=== PATIENT | male | born 1945 | race Caucasian/White ===

== ENCOUNTER 2016-07-26 06:18 | Inpatient (IN) | payer OTHER, BC ==
[~2016-07-26] VITALS: Ht 165.1 cm; Wt 95.0 kg
[~2016-07-26 06:18] MED LIST: ASPEC325 PO; BUPR-79 PO; CHOL100010 PO; CLR10 PO; ESCI1TAB10 PO; FLM4 PO; FRRS300 PO; KFL500 PO; LISI-461 PO; METH5TAB2 PO; MINO100C22 PO; PRED-301 PO; PRED10TA PO; RANI150T3 PO; RXC5 PO; SENN-58 PO
[2016-07-26] MEDS ORDERED: ASPI325T39 PO (06:29)
[2016-07-26] MEDS ORDERED: TAMS0.4C38 PO (06:32)
[2016-07-26] MEDS ORDERED: ASCO1CAP3 PO (06:36)
[2016-07-26] MEDS ORDERED: CHOL1000 PO (06:38)
[2016-07-26] MEDS ORDERED: NAPR1TAB9 PO (06:40)
[2016-07-26] MEDS ORDERED: ONDANSETRON INJ 2 MG/ML 2 ML VIAL IV STA (06:43)
[2016-07-26] MEDS ORDERED: SODIUM CHLORIDE 0.9% 500ML 500 ML IV STA (06:43)
[2016-07-26] MEDS ORDERED: MULT-1093 PO (06:43)
[2016-07-26] MEDS ORDERED: MoRPHine SULFATE 10 MG/ML CARP/VIAL IV STA ×2 (06:43→08:02)
--- NOTE | 2016-07-26 06:58 | EMERGENCY ROOM VISIT NOTE ---
History Report prepared by Kumar: Kofi Londono Under the Supervision of: Dr. Maik Hemphill D.O. First contact with patient: 06:35 Chief Complaint: LEG PAIN,LEG INJURY Stated Complaint: leg pain History of Present Illness The patient is a 71 year old male who presents to the Emergency Room via ALS on a Jasso stretcher with a hare splint in place, with complaints of worsening right leg pain that started around 2 hours ago. He says that he thinks that he fractured his right femur. The patient notes that he has had right leg pain for a couple weeks now, but he rolled in his bed around 2 hours ago, and began to have severe right leg pain, and heard a snap of his femur. The patient currently rates his pain as a 7 out of 10 in severity. The patient says that it "hurts like crazy" and when he tries to move his leg, his femur is "wiggly." He states that he knows that he fractured his femur because he had a spontaneous fracture of his left femur in January, which was operated on by Dr. Leyva. The patient has a history of severe osteoporosis and systemic mastocytosis. He also has a history of avascular necrosis of his hip. He has been on antiresorptive therapy since 1995. He denies any chest pain, shortness of breath , nausea, vomiting, or diarrhea. Source of History: patient Onset: Around 2 hours ago Position: leg (right) Symptom Intensity: 7/10 pain Quality: other (believes has right femur fracture) Timing: worsening Modifying Factors (Worsening): movement Associated Symptoms: No SOB, No chest pain, No diarrhea, No nausea, No vomiting Note: Associated symptoms: Right femur feels "wiggly" with movement. Review of Systems See HPI for pertinent positives & negatives. A total of 10 systems reviewed and were otherwise negative. Past Medical & Surgical Medical Problems: (1) Anemia (2) Avascular necrosis (3) Cellulitis of left lower extremity (4) Diabetes (5) Femur fracture, left (6) HTN (hypertension) (7) Hypotension (8) Left femoral shaft fracture (9) Mastocytosis (10) Polymyalgia rheumatica Family History Diabetes mellitus Heart disease Hypertension Stroke Social History Smoking Status: Never Smoker Alcohol Use: none Drug Use: none Marital Status: Housing Status: lives with significant other Occupation Status: employed Current/Historical Medications Scheduled Ascorbic Acid (Vitamin C), 500 MG PO BID Bupropion (Wellbutrin Sr), 150 MG PO TID Cholecalciferol (Vitamin D3), 10,000 UNITS PO DAILY Escitalopram Oxalate (Lexapro), 20 MG PO QAM Ferrous Sulfate (Ferrous Sulfate), 325 MG PO BID Lisinopril (Zestril), 10 MG PO QAM Loratadine (Claritin), 20 MG PO QAM Methadone Hcl (Dolophine), 5 MG PO QID Minocycline (Minocin), 100 MG PO BID Multiple Vitamins W/ Minerals (Centrum Silver 50+Men), 1 TAB PO DAILY Prednisone (Prednisone), 7.5 MG PO QAM Ranitidine Hcl (Zantac), 150 MG PO BID Sennosides-Docusate Sodium (Jhoana-Colace), 3 CAP PO DAILY Tamsulosin Hcl (Flomax), 0.4 MG PO BID Scheduled PRN Naproxen (Aleve), 220 MG PO DIRECTED PRN for Pain Allergies Coded Allergies: Ciprofloxacin (Verified Adverse Reaction, Unknown, ANKLE TENDONITIS, ) Levofloxacin (Verified Adverse Reaction, Unknown, ANKLE TENDONITIS, ) Physical Exam Vital Signs Date Time Temp Pulse Resp B/P Pulse Ox O2 Delivery O2 Flow Rate FiO2 07/26/16 09:05 96 Room Air 07/26/16 08:12 68 18 150/76 96 Room Air 07/26/16 06:22 36.4 64 22 140/71 99 Room Air Physical Exam GENERAL: laying on Jasso, with splint on right leg, minimal distress EYE EXAM: normal conjunctiva OROPHARYNX: no exudate, no erythema, lips, buccal mucosa, and tongue normal and mucous membranes are moist NECK: supple, no nuchal rigidity, no adenopathy, non-tender LUNGS: Clear to auscultation. Normal chest wall mechanics HEART: no murmurs, S1 normal and S2 normal ABDOMEN: abdomen soft, non-tender, normo-active bowel sounds, no masses, no rebound or guarding. Multiple old abdominal incisions. PELVIS: Stable decompression anteriorly and posteriorly. SKIN: no rashes and no bruising UPPER EXTREMITIES: upper extremities are grossly normal. LOWER EXTREMITIES: Right leg in splint, with moderate pain on palpation of proximal to mid femur. Plantar and dorsal flexion intact, gross sensation intact , DP 2/4. NEURO EXAM: Normal sensorium. Medical Decision & Procedures ER Provider Diagnostic Interpretation: Radiology results as stated below per my review and the radiologist's interpretation: PELVIS 1 OR 2 VIEW ROUTINE CLINICAL HISTORY: Right hip/femur pain. COMPARISON STUDY: Pelvis radiograph January 22, 2016. FINDINGS: A left femoral internal fixation is noted. The hardware is not visualized in its entirety. Heterotopic ossification is noted. There is a healed proximal left femoral fracture. There may be mild lucency surrounding the intramedullary yanira. Alignment of the total right hip arthroplasty is anatomic. There is extensive heterotopic ossification. The right iliac crest was not included. No acute fracture is identified within visualized portions of the pelvis. There is a displaced fracture of the right femoral shaft, just distal to the distal aspect of the femoral component of the right hip arthroplasty. IMPRESSION: 1. Acute moderately displaced right femoral mid shaft fracture immediately distal to the distal aspect of the femoral component of the right hip arthroplasty. 2. Anatomic alignment of the right hip arthroplasty. Previous proximal left femoral internal fixation. Extensive heterotopic ossification. Electronically signed by: Jake Hayward M.D. 07/26/2016 7:59 AM Dictated Date/Time: 07/26/2016 7:55 AM RIGHT FEMUR 2 VIEWS ROUTINE CLINICAL HISTORY: Right femoral pain. COMPARISON: None FINDINGS: There is a acute moderately displaced right midshaft femoral fracture located immediately distal to the distal aspect of the femoral component of the right hip arthroplasty. No additional acute fractures are identified. Alignment of the total right hip arthroplasty is anatomic. There is extensive heterotopic ossification. There is no right knee joint effusion. IMPRESSION: Acute moderately displaced mid shaft fracture of the right femur, immediately distal to the femoral component of the right hip arthroplasty. Electronically signed by: Jake Hayward M.D. 07/26/2016 8:00 AM Dictated Date/Time: 07/26/2016 7:59 AM CHEST ONE VIEW PORTABLE CLINICAL HISTORY: Femoral fracture. COMPARISON STUDY: Chest radiograph February 07, 2016. FINDINGS: There is no pneumothorax or pleural effusion. There are healed bilateral rib fractures. There is no evidence of pulmonary edema. A 1 level vertebral augmentation is noted. An old distal left clavicular fracture is noted. IMPRESSION: No acute cardiopulmonary findings. Electronically signed by: Jake Hayward M.D. 07/26/2016 7:55 AM Dictated Date/Time: 07/26/2016 7:53 AM Laboratory Results 07/26/16 06:55 Red Blood Count 3.90, Mean Corpuscular Volume 90.5, Mean Corpuscular Hemoglobin 29.5, Mean Corpuscular Hemoglobin Concent 32.6, Mean Platelet Volume 8.2, Neutrophils (%) (Auto) 61.8, Lymphocytes (%) (Auto) 29.1, Monocytes (%) (Auto) 7.1, Eosinophils (%) (Auto) 1.6, Basophils (%) (Auto) 0.2, Neutrophils # (Auto) 3.49, Lymphocytes # (Auto) 1.64, Monocytes # (Auto) 0.40, Eosinophils # (Auto) 0.09, Basophils # (Auto) 0.01 07/26/16 06:55 Test 07/26/16 06:55 07/26/16 08:08 White Blood Count 5.64 K/uL (4.8-10.8) Red Blood Count 3.90 M/uL (4.7-6.1) Hemoglobin 11.5 g/dL (14.0-18.0) Hematocrit 35.3 % (42-52) Mean Corpuscular Volume 90.5 fL (80-100) Mean Corpuscular Hemoglobin 29.5 pg (25-34) Mean Corpuscular Hemoglobin Concent 32.6 g/dl (32-36) Platelet Count 169 K/uL (130-400) Mean Platelet Volume 8.2 fL (7.4-10.4) Neutrophils (%) (Auto) 61.8 % Lymphocytes (%) (Auto) 29.1 % Monocytes (%) (Auto) 7.1 % Eosinophils (%) (Auto) 1.6 % Basophils (%) (Auto) 0.2 % Neutrophils # (Auto) 3.49 K/uL (1.4-6.5) Lymphocytes # (Auto) 1.64 K/uL (1.2-3.4) Monocytes # (Auto) 0.40 K/uL (0.11-0.59) Eosinophils # (Auto) 0.09 K/uL (0-0.5) Basophils # (Auto) 0.01 K/uL (0-0.2) RDW Standard Deviation 45.1 fL (36.4-46.3) RDW Coefficient of Variation 13.7 % (11.5-14.5) Immature Granulocyte % (Auto) 0.2 % Immature Granulocyte # (Auto) 0.01 K/uL (0.00-0.02) Prothrombin Time 11.1 SECONDS (9.0-12.0) Prothromb Time International Ratio 1.0 (0.9-1.1) Activated Partial Thromboplast Time 28.9 SECONDS (21.0-31.0) Partial Thromboplastin Ratio 1.1 Anion Gap 6.0 mmol/L (3-11) Est Creatinine Clear Calc Drug Dose 92.3 ml/min Estimated GFR () 105.6 Estimated GFR (Non- 91.1 BUN/Creatinine Ratio 22.0 (10-20) Calcium Level 8.6 mg/dl (8.5-10.1) Urine Color YELLOW Urine Appearance CLEAR (CLEAR) Urine pH 6.0 (4.5-7.5) Urine Specific [place] 1.017 (1.000-1.030) Urine Protein NEG (NEG) Urine Glucose (UA) NEG (NEG) Urine Ketones NEG (NEG) Urine Occult Blood NEG (NEG) Urine Nitrite NEG (NEG) Urine Bilirubin NEG (NEG) Urine Urobilinogen NEG (NEG) Urine Leukocyte Esterase TRACE (NEG) Urine WBC (Auto) 1-5 /hpf (0-5) Urine RBC (Auto) 0-4 /hpf (0-4) Urine Hyaline Casts (Auto) 1-5 /lpf (0-5) Urine Epithelial Cells (Auto) 0-5 /lpf (0-5) Urine Bacteria (Auto) NEG (NEG) Laboratory results per my review. Medications Administered Medications (Trade) Dose Ordered Sig/Carlos A Route Start Time Stop Time Status Last Admin Dose Admin Morphine Sulfate 6 mg 6 mg NOW STAT IV 07/26/16 06:43 07/26/16 06:45 DC 07/26/16 07:22 6 MG Sodium Chloride (Nss 500ml) 500 ml @ 999 mls/hr Q31M STAT IV 07/26/16 06:43 07/26/16 07:13 DC 07/26/16 07:22 999 MLS/HR Ondansetron HCl (Zofran Inj) 4 mg NOW STAT IV 07/26/16 06:43 07/26/16 06:45 DC 07/26/16 07:22 4 MG Morphine Sulfate (MoRPHine SULFATE INJ) 6 mg NOW STAT IV 07/26/16 08:02 07/26/16 08:03 DC 07/26/16 08:11 6 MG ECG Indication: other (leg pain) Rate (beats per minute): 66 Rhythm: normal sinus Findings: other (normal axis, poor baseline in anterior leads, normal intervals ) ED Course ED COURSE: Vital signs were reviewed and showed normal vitals. The patients medical record was reviewed The above diagnostic studies were performed and reviewed. ED treatments and interventions as stated above. 0637: The patient was evaluated in room B7. A complete history and physical examination was performed. 0643: Ordered Zofran Inj 4 mg IV, NSS 500 ml @ 999 mls/hr IV, Morphine Sulfate Inj 6 mg IV. 0716: I reevaluated the patient and he is in pain. 0800: I reevaluated and updated the patient. He is doing better. 0809: I discussed the patient with Dr. Michelle Schmidthey orthopedics - he says place the patient in Li's traction. 0819: Upon reevaluation, the patient is doing well.I discussed my findings with the patient and he understands and agrees with the treatment plan. Based on the patients age, coexisting illnesses, exam and lab findings the decision to treat as an inpatient was made. The patient remained stable while under my care. The patient will be evaluated for further management. 0933: I discussed the patient with Dr. Richard Navarro psychologist industrial organizational - he will evaluate the patient for further treatment. Medical Decision Prior records reviewed and summarized above. Triage Nursing notes reviewed and agree them. Differential diagnosis: Etiologies such as fracture, dislocation, neurovascular compromise, compartment syndrome, soft tissue injury, as well as others were entertained. Patient is a 71-year-old male who presents the ER for severe right mid femur pain following rolling over in bed and hearing a snap. He does have a history of osteoporosis and previous pathological fractures. He follows with Dr. Leyva from orthopedics. Currently in splint which was placed by EMS. As long as he is not moving is in no distress. Labs along with EKG and x-rays were obtained. CBC along with BMP and INR was unremarkable. EKG was nondiagnostic. X-rays show a mid shaft right femur fracture just distally to his right prosthesis from his previous hip replacement. He is neurovascularly intact. He was given 2 rounds of IV morphine. Discussed with orthopedics who recommended Li's traction at 10 pounds and he will evaluate him this morning. Discussed with internal medicine for further evaluation/admission. Consults Time Called: [phone] Consulting Physician: Dr. Michelle Nevarez orthopedics Returned Call: [phone] I discussed the patient with Dr. Michelle Nevarez orthopedics - he says place the patient in Li's traction. Additional Consults: Time Called: [phone] Consulted Physician: Dr. Richard Navarro psychologist industrial organizational Returned Call: [phone] Additional Comments: I discussed the patient with Dr. Richard Navarro psychologist industrial organizational - he will evaluate the patient for further treatment. Impression Primary Impression: Right femoral fracture Additional Impression: Anemia Scribe Attestation The scribe's documentation has been prepared under my direction and personally reviewed by me in its entirety. I confirm that the note above accurately reflects all work, treatment, procedures, and medical decision making performed by me. Departure Information Dispostion Being Evaluated By Hospitalist Naveen Campos M.D. (PCP) Patient Instructions My [facility] Problem Qualifiers Primary Impression: Right femoral fracture Encounter type: initial encounter Femur location: unspecified portion of femur Fracture type: closed Fracture morphology: other fracture Qualified Codes: S72.8X1A - Other fracture of right femur, initial encounter for closed fracture Additional Impression: Anemia Anemia type: unspecified type Qualified Codes: D64.9 - Anemia, unspecified
[2016-07-26 07:06] LABS: BASO % 0.2 %; BASO ABS # 0.01 K/uL (0-0.2); COMPLETE YES; EOS % 1.6 %; HEMATOCRIT 35.3 % (42-52); IG% 0.2 %; LYMPH % 29.1 %; LYMPH ABS # 1.64 K/uL (1.2-3.4); MEAN CELL VOLUME 90.5 fL (80-100); MEAN CORPUSCULAR HEMOGLOBIN 29.5 pg (25-34); MEAN CORPUSCULAR HGB CONC 32.6 g/dl (32-36); MEAN PLATELET VOLUME 8.2 fL (7.4-10.4); MONO % 7.1 %; NEUT % 61.8 %; PLATELET COUNT 169 K/uL (130-400); WHITE BLOOD COUNT 5.64 K/uL (4.8-10.8)
[2016-07-26 07:18] LABS: PARTIAL THROMBOPLASTIN RATIO 1.1; PROTHROMBIN TIME (PATIENT) 11.1 SECONDS (9.0-12.0)
[2016-07-26 07:41] LABS: CALCIUM 8.6 mg/dl (8.5-10.1); CREATININE 0.8 mg/dl (0.60-1.40)
--- NOTE | 2016-07-26 07:57 | DIAGNOSTIC IMAGING REPORT ---
CHEST ONE VIEW PORTABLE CLINICAL HISTORY: Femoral fracture. COMPARISON STUDY: Chest radiograph February 07, 2016. FINDINGS: There is no pneumothorax or pleural effusion. There are healed bilateral rib fractures. There is no evidence of pulmonary edema. A 1 level vertebral augmentation is noted. An old distal left clavicular fracture is noted. IMPRESSION: No acute cardiopulmonary findings. Electronically signed by: Jake Hayward M.D. 07/26/2016 7:55 AM Dictated Date/Time: 07/26/2016 7:53 AM
--- NOTE | 2016-07-26 08:00 | DIAGNOSTIC IMAGING REPORT ---
PELVIS 1 OR 2 VIEW ROUTINE CLINICAL HISTORY: Right hip/femur pain. COMPARISON STUDY: Pelvis radiograph January 22, 2016. FINDINGS: A left femoral internal fixation is noted. The hardware is not visualized in its entirety. Heterotopic ossification is noted. There is a healed proximal left femoral fracture. There may be mild lucency surrounding the intramedullary yanira. Alignment of the total right hip arthroplasty is anatomic. There is extensive heterotopic ossification. The right iliac crest was not included. No acute fracture is identified within visualized portions of the pelvis. There is a displaced fracture of the right femoral shaft, just distal to the distal aspect of the femoral component of the right hip arthroplasty. IMPRESSION: 1. Acute moderately displaced right femoral mid shaft fracture immediately distal to the distal aspect of the femoral component of the right hip arthroplasty. 2. Anatomic alignment of the right hip arthroplasty. Previous proximal left femoral internal fixation. Extensive heterotopic ossification. Electronically signed by: Jake Hayward M.D. 07/26/2016 7:59 AM Dictated Date/Time: 07/26/2016 7:55 AM
--- NOTE | 2016-07-26 08:01 | DIAGNOSTIC IMAGING REPORT ---
RIGHT FEMUR 2 VIEWS ROUTINE CLINICAL HISTORY: Right femoral pain. COMPARISON: None FINDINGS: There is a acute moderately displaced right midshaft femoral fracture located immediately distal to the distal aspect of the femoral component of the right hip arthroplasty. No additional acute fractures are identified. Alignment of the total right hip arthroplasty is anatomic. There is extensive heterotopic ossification. There is no right knee joint effusion. IMPRESSION: Acute moderately displaced mid shaft fracture of the right femur, immediately distal to the femoral component of the right hip arthroplasty. Electronically signed by: Jake Hayward M.D. 07/26/2016 8:00 AM Dictated Date/Time: 07/26/2016 7:59 AM
[2016-07-26 08:15] LABS: URINE APPEARANCE CLEAR (CLEAR); URINE BILIRUBIN NEG (NEG); URINE COLOR YELLOW; URINE EPITHELIAL CELL AUTO 0-5 /lpf (0-5); URINE NITRITE NEG (NEG); URINE SPECIFIC GRAVITY 1.017 (1.000-1.030); UROBILINOGEN NEG (NEG)
[2016-07-26 08:17] LABS: MANUAL MICROSCOPIC REQUIRED? NO; REVIEW REQ? NO
[2016-07-26 09:05] VITALS: O2SAT 96; Ht 165.1 cm; Wt 95.0 kg
[2016-07-26] MEDS ORDERED: MAGNESIUM HYDROXIDE SUSP 30 ML UDC PO PRN (10:00)
[2016-07-26] MEDS ORDERED: ONDANSETRON INJ 2 MG/ML 2 ML VIAL IV PRN (10:00)
[2016-07-26] MEDS ORDERED: ALUMINUM/MAGNESIUM/SIMETH (MAALOX MAX) 30 ML UDC PO PRN (10:00)
[2016-07-26] MEDS ORDERED: ACETAMINOPHEN 325 MG TAB PO PRN (10:00)
[2016-07-26] MEDS ORDERED: MoRPHine SULFATE 4 MG/ML 1 ML CARP\\VIAL IV PRN ×2 (10:00→15:00)
[2016-07-26] MEDS ORDERED: POLYETHYLENE (MIRALAX) 17 GM PACK PO PRN (10:15)
--- NOTE | 2016-07-26 10:30 | History and Physical ---
History & Physical Date & Time of Service: July 26, 2016 at 10:15 Chief Complaint: leg pain Primary Care Physician: Naveen Coreas M.D. 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 of pathological L femoral fracture, hx. of multiple abdominal surgeries presents with a R femoral fracture. States that for the past week his R leg has been hurting - he had seen orthopedic surgery as an outpatient; had X-rays done , has had previous right total hip arthroplasty. X-rays looked okay and there were no acute issues. He states the pain persisted and he was going to go back to ortho on Wednesday (07/27), but this morning he made a jerking movement while laying and had acute R leg pain. Brought in the ER and found to have a mid- shaft fracture on R. Pain controlled with IV morphine. Past Medical/Surgical History Medical Problems: (1) Anemia Status: Chronic (2) Avascular necrosis Status: Chronic (3) Diabetes Status: Chronic (4) HTN (hypertension) Status: Chronic (5) Mastocytosis Status: Chronic (6) Polymyalgia rheumatica Status: Chronic Family History Diabetes mellitus Heart disease Hypertension Stroke Social History Smoking Status: Former Smoker Drug Use: none Marital Status: Housing status: lives with family Occupational Status: employed Immunizations History of Influenza Vaccine: N/A History of Tetanus Vaccine?: Yes History of Pneumococcal: Yes History of Hepatitis B Vaccine: UNABLE TO OBTAIN IMMUNITY Multi-Drug Resistant Organisms History of MDRO: No Allergies Coded Allergies: Ciprofloxacin (Verified Adverse Reaction, Unknown, ANKLE TENDONITIS, ) Levofloxacin (Verified Adverse Reaction, Unknown, ANKLE TENDONITIS, ) Home Medications Scheduled Ascorbic Acid (Vitamin C), 500 MG PO BID Bupropion (Wellbutrin Sr), 150 MG PO TID Cholecalciferol (Vitamin D3), 10,000 UNITS PO DAILY Escitalopram Oxalate (Lexapro), 20 MG PO QAM Ferrous Sulfate (Ferrous Sulfate), 325 MG PO BID Lisinopril (Zestril), 10 MG PO QAM Loratadine (Claritin), 20 MG PO QAM Methadone Hcl (Dolophine), 5 MG PO QID Minocycline (Minocin), 100 MG PO BID Multiple Vitamins W/ Minerals (Centrum Silver 50+Men), 1 TAB PO DAILY Prednisone (Prednisone), 7.5 MG PO QAM Ranitidine Hcl (Zantac), 150 MG PO BID Sennosides-Docusate Sodium (Jhoana-Colace), 3 CAP PO DAILY Tamsulosin Hcl (Flomax), 0.4 MG PO BID Scheduled PRN Naproxen (Aleve), 220 MG PO DIRECTED PRN for Pain Review of Systems Constitutional: No chills, No fever, No weakness Respiratory: No cough, No dyspnea on exertion, No shortness of breath, No sputum Cardiovascular: No chest pain, No edema, No palpitations Abdomen: No GI bleeding, No constipation, No diarrhea, No nausea, No pain, No vomiting Musculoskeletal: + joint pain (R leg pain), + muscle pain Genitourinary - Male: No dysuria, No urinary frequency Neurologic: No numbness/tingling, No vertigo, No weakness Psychiatric: No anxiety, No depression symptoms Endocrine: No fatigue Hematologic / Lymphatic: No abnormal bleeding/bruising Integumentary: No rash Allergic / Immunologic: No environmental allergies, No seasonal allergies Physical Exam Vital Signs Date Time Temp Pulse Resp B/P Pulse Ox O2 Delivery O2 Flow Rate FiO2 07/26/16 09:05 96 Room Air 07/26/16 08:12 68 18 150/76 96 Room Air 07/26/16 06:22 36.4 64 22 140/71 99 Room Air General Appearance: no apparent distress Head: normocephalic, atraumatic Eyes: normal inspection ENT: hearing grossly normal Respiratory/Chest: chest non-tender, lungs clear, normal breath sounds, no respiratory distress, no accessory muscle use Cardiovascular: regular rate, rhythm, no edema, no murmur Abdomen/GI: normal bowel sounds, non tender, soft Extremities/Musculoskelatal: no calf tenderness, normal capillary refill, no pedal edema, + pertinent finding (R LE in traction) Neurologic/Psych: no motor/sensory deficits, alert, normal mood/affect Diagnostics Laboratory Results Results Past 24 Hours Test 07/26/16 06:55 07/26/16 08:08 Range/Units White Blood Count 5.64 4.8-10.8 K/uL Red Blood Count 3.90 4.7-6.1 M/uL Hemoglobin 11.5 14.0-18.0 g/dL Hematocrit 35.3 42-52 % Mean Corpuscular Volume 90.5 80-100 fL Mean Corpuscular Hemoglobin 29.5 25-34 pg Mean Corpuscular Hemoglobin Concent 32.6 32-36 g/dl Platelet Count 169 130-400 K/uL Mean Platelet Volume 8.2 7.4-10.4 fL Neutrophils (%) (Auto) 61.8 % Lymphocytes (%) (Auto) 29.1 % Monocytes (%) (Auto) 7.1 % Eosinophils (%) (Auto) 1.6 % Basophils (%) (Auto) 0.2 % Neutrophils # (Auto) 3.49 1.4-6.5 K/uL Lymphocytes # (Auto) 1.64 1.2-3.4 K/uL Monocytes # (Auto) 0.40 0.11-0.59 K/uL Eosinophils # (Auto) 0.09 0-0.5 K/uL Basophils # (Auto) 0.01 0-0.2 K/uL RDW Standard Deviation 45.1 36.4-46.3 fL RDW Coefficient of Variation 13.7 11.5-14.5 % Immature Granulocyte % (Auto) 0.2 % Immature Granulocyte # (Auto) 0.01 0.00-0.02 K/uL Prothrombin Time 11.1 9.0-12.0 SECONDS Prothromb Time International Ratio 1.0 0.9-1.1 Activated Partial Thromboplast Time 28.9 21.0-31.0 SECONDS Partial Thromboplastin Ratio 1.1 Sodium Level 139 136-145 mmol/L Potassium Level 5.0 3.5-5.1 mmol/L Chloride Level 104 98-107 mmol/L Carbon Dioxide Level 29 21-32 mmol/L Anion Gap 6.0 3-11 mmol/L Blood Urea Nitrogen 18 7-18 mg/dl Creatinine 0.80 0.60-1.40 mg/dl Est Creatinine Clear Calc Drug Dose 92.3 ml/min Estimated GFR () 105.6 Estimated GFR (Non- 91.1 BUN/Creatinine Ratio 22.0 10-20 Random Glucose 104 70-99 mg/dl Calcium Level 8.6 8.5-10.1 mg/dl Urine Color YELLOW Urine Appearance CLEAR CLEAR Urine pH 6.0 4.5-7.5 Urine Specific [place] 1.017 1.000-1.030 Urine Protein NEG NEG Urine Glucose (UA) NEG NEG Urine Ketones NEG NEG Urine Occult Blood NEG NEG Urine Nitrite NEG NEG Urine Bilirubin NEG NEG Urine Urobilinogen NEG NEG Urine Leukocyte Esterase TRACE NEG Urine WBC (Auto) 1-5 0-5 /hpf Urine RBC (Auto) 0-4 0-4 /hpf Urine Hyaline Casts (Auto) 1-5 0-5 /lpf Urine Epithelial Cells (Auto) 0-5 0-5 /lpf Urine Bacteria (Auto) NEG NEG Diagnostic Radiology PELVIS 1 OR 2 VIEW ROUTINE CLINICAL HISTORY: Right hip/femur pain. COMPARISON STUDY: Pelvis radiograph January 22, 2016. FINDINGS: A left femoral internal fixation is noted. The hardware is not visualized in its entirety. Heterotopic ossification is noted. There is a healed proximal left femoral fracture. There may be mild lucency surrounding the intramedullary yanira. Alignment of the total right hip arthroplasty is anatomic. There is extensive heterotopic ossification. The right iliac crest was not included. No acute fracture is identified within visualized portions of the pelvis. There is a displaced fracture of the right femoral shaft, just distal to the distal aspect of the femoral component of the right hip arthroplasty. IMPRESSION: 1. Acute moderately displaced right femoral mid shaft fracture immediately distal to the distal aspect of the femoral component of the right hip arthroplasty. 2. Anatomic alignment of the right hip arthroplasty. Previous proximal left femoral internal fixation. Extensive heterotopic ossification. CHEST ONE VIEW PORTABLE CLINICAL HISTORY: Femoral fracture. COMPARISON STUDY: Chest radiograph February 07, 2016. FINDINGS: There is no pneumothorax or pleural effusion. There are healed bilateral rib fractures. There is no evidence of pulmonary edema. A 1 level vertebral augmentation is noted. An old distal left clavicular fracture is noted. IMPRESSION: No acute cardiopulmonary findings. 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 of pathological L femoral fracture, hx. of multiple abdominal surgeries presents with a R femoral fracture. 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 Y/N: Yes Risk Level: Moderate
[2016-07-26 11:10] VITALS: BP 165/75; PULSE 61; TEMP 36.6; O2SAT 99
[2016-07-26] MEDS ORDERED: NURSING VERBAL MED ORDER ONE (11:30)
[2016-07-26] MEDS ORDERED: METHADONE HCL 5 MG TAB ONE (11:37)
[2016-07-26 11:40] LABS: ZZUR CULT IF INDIC CLEAN CATCH NO
[2016-07-26] MEDS ORDERED: METHADONE HCL 5 MG TAB PO SCH ×2 (13:00→21:00)
[2016-07-26] MEDS ORDERED: HYDROmorphone INJ 2 MG/ML SYR/VIAL IV STA ×2 (13:41→16:32)
[2016-07-26] MEDS: BuPROPion SR 150 MG TABCR PO SCH ×2 (13:51→21:05)
[2016-07-26 14:51] VITALS: BP 149/79; PULSE 63; TEMP 36.7; O2SAT 98
[2016-07-26] MEDS: METHADONE HCL 5 MG TAB PO SCH ×2 (18:10→21:03)
[2016-07-26] MEDS: FERROUS SULFATE 325 MG TAB PO SCH (18:11)
--- NOTE | 2016-07-26 18:18 | ORTHOPEDIC CONSULTATION ---
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 He was rolling over in bed this morning when he felt pain in his right thigh. He was brought to the ER where he was found to have a femoral shaft fracture below his total hip arthroplasty. He had a total hip replacement done approximately 2010. This was complicated by an early infection. Surgery and treatment for this were done at [facility]. He has about a week to 10-day history of right thigh pain. He is a patient of Dr. Leyva's and was in to see Dr. Wheeler recently for this thigh pain. The patient has also had an atypical subtroch left femoral fracture in January of 2016. He has a history of mastocytosis, osteoporosis and he had been on antiresorptive therapy, as early as in the mid . Dr. Leyva repaired his left femoral fracture, biopsy of which showed mastocytosis. The patient also has neuropathy. He denies any numbness or tingling. Pain is in the mid thigh area. PAST MEDICAL HISTORY: He has a past medical history of mastocytosis; diverticulitis; polymyalgia rheumatica, currently taking steroids; avascular necrosis; right total hip arthroplasty with infection; left subtrochanteric femur fracture; chronic anemia; diabetes and high blood pressure. He has had a surgery on his right wrist, spine, multiple abdominal surgeries, left knee surgery and the aforementioned femoral surgeries. PAST SURGICAL HISTORY: He takes vitamin D, Claritin, vitamin C, naproxen, Wellbutrin, Lexapro, iron, Zestril, methadone, minocycline for suppression of his hip infection, multivitamin, prednisone 5 mg daily, Zantac, Jhoana-Colace and Flomax. ALLERGIES: HE HAS ALLERGIES TO CIPROFLOXACIN AND LEVOFLOXACIN. PHYSICAL EXAMINATION: GENERAL: He is awake, alert, and oriented in no acute distress, pleasant and conversant. He is in a hare traction splint and we are in the process of transferring him to a Li's traction on a regular hospital bed. He has a trace dorsalis pedis on the right. He reports decreased sensation throughout both lower extremities with no significant sensory changes compared to previous. He can wiggle his toes and flex and extend his ankle with normal strength against resistance. The ankle, foot, leg and knee are nontender and not swollen. He has tenderness in the mid shaft region of the right femur. There is no obvious deformity and no open wound. LABORATORY DATA: White count is 5, hemoglobin 12, hematocrit 35. PT/INR within normal limits. Chemistry shows a slightly elevated glucose. DIAGNOSTIC IMAGING: Radiographs of the right hip show a located total hip arthroplasty. There is no evidence of obvious loosening or osteolysis. There is significant heterotopic bone formation around the hip, which is chronic in nature. There is a transverse uncomminuted fracture at the tip of the femoral stem with displacement. IMPRESSION: 1. Polymyalgia rheumatica, on steroids, 2. Mastocytosis. 3. Multiple medical problems including diabetes. 4. Osteoporosis. 5. Atypical right femur fracture, periprosthetic. PLAN: Findings discussed with the patient. He will be admitted to the hospital, placed into Li's traction for comfort and be given pain medication. DVT prophylaxis with mechanical devices. He does not have a history of bleeding problems or blood clots. He does have a history of the aforementioned infection in the right hip related to staff with no problem since it had been treated. I suspect that this is an atypical femoral fracture related to multiple factors including osteoporosis antiresorptive therapy treatment and mastocytosis. I do not see any evidence of a pathologic lesion in terms of a destructive bone lesion associated with this fracture. He will be made n.p.o. after midnight and we will plan for surgery tomorrow. I will make contact with Dr. Leyva, as he has well established care with him. I would recommend ORIF using plates, screws and cerclage wires. The patient is in general agreement to proceed. I spoke with Dr. Ramos and in there are no medical issues. He will need a stress dose of steroids preoperatively. I will continue him on his minocycline. He will need a preop dose of IV antibiotics. I would not administer any injectable anticoagulants at this point until postoperatively, decubitus precautions.
[2016-07-26] MEDS: HYDROmorphone INJ 2 MG/ML SYR/VIAL IV PRN ×3 (19:05→23:23)
[2016-07-26] MEDS: TAMSULOSIN HCL 0.4 MG CAP PO SCH (21:03)
[2016-07-26] MEDS: RANITIDINE HCL 150 MG TAB PO SCH (21:05)
--- NOTE | 2016-07-26 21:32 | Progress Note ---
Progress Note Date of Service July 26, 2016. Progress Note Patient is scheduled for repair of a R periprosthetic fracture with Dr Leyva. 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 The patient has had numerous surgeries and did once experience an addisonian crisis post-op after a laparotomy and bowel resection. He knows of no heart or lung issues. He has no anginal symptoms. He was a lifelong smoker but quit in 2012. 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 He is on no anticoagulants. Airway exam is reassuring. Heart and lung exam unremarkable. He has his R leg in traction. Labs reviewed. Patient is amenable to spinal or general anesthesia at the discretion of the attending anesthesiologist on the day of surgery. 24 hours of stress dose steroids may be considered based on his clinical course given his chronic prednisone use and history of addisonian crisis. In addition, he is scheduled first case of the morning and aware that prolonged monitoring may be necessary given his systemic mastocytosis which may predispose him to severe hypersensitivity reaction. Ok to proceed to surgery as planned on 07/27.
[2016-07-26 23:00] VITALS: BP 144/95; PULSE 58; TEMP 36.7; O2SAT 98
[2016-07-26] MEDS ORDERED: ACETAMINOPHEN IV 650 MG in EMPTY BAG 0 ML IV PRN (23:45)
[2016-07-27] VITALS (7 sets, daily range): BP systolic 93–150; BP diastolic 53–85; PULSE 59–93; TEMP 36.6–37; O2SAT 96–100
[2016-07-27] MEDS: HYDROmorphone INJ 2 MG/ML SYR/VIAL IV PRN ×7 (01:28→19:41)
[2016-07-27 05:51] LABS: HEMATOCRIT 36.6 % (42-52); MEAN CELL VOLUME 90.6 fL (80-100); MEAN CORPUSCULAR HGB CONC 33.1 g/dl (32-36); MEAN PLATELET VOLUME 8.7 fL (7.4-10.4); PLATELET COUNT 181 K/uL (130-400); RED BLOOD COUNT 4.04 M/uL (4.7-6.1); WHITE BLOOD COUNT 5.26 K/uL (4.8-10.8)
[2016-07-27 06:20] LABS: CALCIUM 8.6 mg/dl (8.5-10.1); CREATININE 0.71 mg/dl (0.60-1.40)
[2016-07-27] MEDS: DOCUSATE SODIUM/SENNA 50/8.6MG TAB PO SCH (08:54)
[2016-07-27] MEDS: METHADONE HCL 5 MG TAB PO SCH ×4 (08:54→22:42)
[2016-07-27] MEDS: RANITIDINE HCL 150 MG TAB PO SCH ×2 (08:56→22:46)
[2016-07-27] MEDS: ESCITALOPRAM OXALATE 20 MG TAB PO SCH (08:56)
[2016-07-27] MEDS: FERROUS SULFATE 325 MG TAB PO SCH ×2 (08:57→17:45)
[2016-07-27] MEDS: BuPROPion SR 150 MG TABCR PO SCH ×3 (08:57→22:43)
[2016-07-27] MEDS: TAMSULOSIN HCL 0.4 MG CAP PO SCH ×2 (08:57→22:44)
[2016-07-27] MEDS: LISINOPRIL 10 MG TAB PO SCH (08:58)
[2016-07-27] MEDS ORDERED: CEROVITE ADV FORMULA TAB PO SCH (09:00)
--- NOTE | 2016-07-27 09:06 | PROGRESS NOTE ---
DATE: 07/27/2016 SUBJECTIVE: A 71-year-old gentleman with a known history of mastocytosis status post right total hip replacement at [facility] with a right periprosthetic femur fracture. He is about 2 weeks of thigh pain. He saw Dr. Wheeler last week. X-rays were normal. He was lying in bed and has spasm and then rolled over and felt a crack in his right femur. He had a similar episode in the left femur about 6 months ago. He was brought to Emergency Room where x-rays revealed a periprosthetic femur fracture. He has been admitted to the medicine service. No other complaints. No chest pain or shortness of breath. No trauma. OBJECTIVE: VITAL SIGNS: Temperature is 36.9. Vital signs stable. PHYSICAL EXAMINATION: GENERAL: Reveals a pleasant, middle-aged male. He is lying in bed, looks reasonably comfortable. Some moderate pain. Leg is in traction. EXTREMITIES: Examination of the right leg reveals some moderate swelling and slight deformity. Skin is intact. He can dorsiflex and plantarflex his foot appropriately. LABORATORY DATA: Hemoglobin 12.1, hematocrit 36.6. Electrolytes are stable. ASSESSMENT: A 71-year-old gentleman with a right periprosthetic femur fracture. He has got known history mastocytosis as well as polymyalgia rheumatica. He does have a history of infection after a total hip on this side done at [facility] years ago. PLAN: The patient has been admitted to the medicine service. He has been medically optimized. He will undergo ORIF of this fracture, hopefully later today. We will continue him in traction in the meantime. We will continue DVT prophylaxis including thigh-high TEDs, SCDs. We will likely use aspirin postoperatively versus Lovenox. Informed consent was obtained.
[2016-07-27] MEDS ORDERED: FENTANYL CITRATE INJ 50 MCG/1 ML 2 ML VIAL ONE ×2 (11:52→15:01)
[2016-07-27] MEDS ORDERED: MIDAZOLAM HCL 1 MG/ML 2ML VIAL ONE ×2 (11:56→13:03)
[2016-07-27] MEDS ORDERED: BUPIVACAINE/EPINEPHRINE 0.5% MPF 1:200,000 30 ML VIAL ONE (12:23)
[2016-07-27] MEDS ORDERED: BACITRACIN 50000 UNIT VIAL ONE (12:23)
[2016-07-27] MEDS ORDERED: METHADONE HCL 5 MG TAB PO SCH (12:30)
[2016-07-27] MEDS ORDERED: NURSING VERBAL MED ORDER STA (13:46)
[2016-07-27] MEDS ORDERED: CEFAZOLIN IV 2,000 MG/60 ML D5W IV ONE (13:48)
[2016-07-27] MEDS ORDERED: BUPIVACAINE 0.5 % 5 MG/1 ML PF 10ML VIAL ONE (13:49)
[2016-07-27] MEDS ORDERED: LIDOCAINE HCL 2% 2 ML VIAL (20MG/ML) ONE (14:14)
[2016-07-27] MEDS ORDERED: HYDROCORTISONE SOD SUCCINATE 100 MG/2 ML VIAL ONE (14:14)
[2016-07-27] MEDS ORDERED: PROPOFOL IV EMULSION 10 MG/ML 20 ML VIAL IV ONE (14:14)
[2016-07-27] MEDS ORDERED: BUPIVACAINE/EPINEPHRINE 0.25% 1:200,000 30 ML VIAL ONE (14:21)
[2016-07-27] MEDS ORDERED: ROCURONIUM BROMIDE 10 MG/ML 5 ML VIAL ONE (15:01)
[2016-07-27] MEDS ORDERED: ONDANSETRON INJ 2 MG/ML 2 ML VIAL ONE (16:54)
[2016-07-27] MEDS ORDERED: RANITIDINE HCL 25 MG/ML INJ ONE (16:54)
[2016-07-27] MEDS ORDERED: NEOSTIGMINE METHYLSULFATE 5 MG/5 ML SYR ONE (16:54)
[2016-07-27] MEDS ORDERED: GLYCOPYRROLATE INJ 0.2 MG/ML VIAL ONE (16:54)
[2016-07-27] MEDS ORDERED: HYDROmorphone INJ 2 MG/ML SYR/VIAL ONE (16:55)
--- NOTE | 2016-07-27 17:02 | DIAGNOSTIC IMAGING REPORT ---
INTRAOPERATIVE RADIOGRAPHS CLINICAL HISTORY: Open reduction and internal fixation of the right femur. Fluoroscopy time: 43 seconds. FINDINGS: 8 spot fluoroscopic views of the right femur are correlated with radiographs of the right femur dated 07/26/2016. A right hip arthroplasty is again noted. There has been buttress plate fixation of a horizontal fracture through the mid femoral diaphysis with jainism of near-anatomic alignment. Numerous cortical lag screws transfix the buttress plate. Several cerclage wires are in place. The orthopedic hardware appears intact. Overlying soft tissue edema is noted. IMPRESSION: Intraoperative images from open reduction and internal fixation of a right femoral fracture as above. Electronically signed by: Tushar Ugalde M.D. 07/27/2016 5:01 PM Dictated Date/Time: 07/27/2016 4:59 PM
--- NOTE | 2016-07-27 17:02 | DIAGNOSTIC IMAGING REPORT ---
INTRAOPERATIVE RADIOGRAPHS CLINICAL HISTORY: Open reduction and internal fixation of the right femur. Fluoroscopy time: 43 seconds. FINDINGS: 8 spot fluoroscopic views of the right femur are correlated with radiographs of the right femur dated 07/26/2016. A right hip arthroplasty is again noted. There has been buttress plate fixation of a horizontal fracture through the mid femoral diaphysis with restorationist of near-anatomic alignment. Numerous cortical lag screws transfix the buttress plate. Several cerclage wires are in place. The orthopedic hardware appears intact. Overlying soft tissue edema is noted. IMPRESSION: Intraoperative images from open reduction and internal fixation of a right femoral fracture as above. Electronically signed by: Tushra Ugalde M.D. 07/27/2016 5:01 PM Dictated Date/Time: 07/27/2016 4:59 PM
--- NOTE | 2016-07-27 17:28 | [facility] Post Operative Brief Note ---
Immediate Operative Summary Operative Date July 27, 2016. Pre-Operative Diagnosis Right Periprosthetic Femur Fracture Post-Operative Diagnosis Same as preoperative diagnosis Procedure(s) Performed Open Reduction Internal Fixation Right Femur Fracture Surgeon Dr. Leyva Realtime Captioner Surgeon(s) Olayinka Payne PA-C Estimated Blood Loss 300ml Findings Right Femur Fracture Fluids (cc crystalloids) 1700 cc Specimens None Drains HMV Right Thigh Anesthesia General Complication(s) None Disposition Recovery Room / PACU
[2016-07-27] MEDS ORDERED: ALUMINUM/MAGNESIUM/SIMETH (MAALOX MAX) 30 ML UDC PO PRN (17:30)
[2016-07-27] MEDS ORDERED: ZOLPIDEM TARTRATE 5 MG TAB PO PRN (17:30)
[2016-07-27] MEDS ORDERED: ONDANSETRON INJ 2 MG/ML 2 ML VIAL IV PRN ×2 (17:30→17:45)
[2016-07-27] MEDS ORDERED: MAGNESIUM HYDROXIDE SUSP 30 ML UDC PO PRN (17:30)
[2016-07-27] MEDS ORDERED: BISACODYL 10 MG SUPP PR PRN (17:30)
[2016-07-27] MEDS ORDERED: METOCLOPRAMIDE HCL INJ 5 MG/ML 2 ML VIAL IV PRN (17:30)
[2016-07-27] MEDS ORDERED: HYDROmorphone INJ 1 MG/ML SYR ONE ×2 (17:41→17:54)
[2016-07-27] MEDS ORDERED: ATROPINE SULFATE 0.1 MG/ML 5ML SYR IV PRN (17:45)
[2016-07-27] MEDS ORDERED: EpHEDrine SULFATE INJ 50 MG/ML AMP IV PRN (17:45)
[2016-07-27] MEDS ORDERED: FLUMAZENIL 0.1 MG/1 ML 10 ML VIAL IV PRN (17:45)
[2016-07-27] MEDS ORDERED: LABETALOL HCL IV 5 MG/ML 20ML IV PRN (17:45)
[2016-07-27] MEDS ORDERED: FENTANYL CITRATE INJ 50 MCG/1 ML 2 ML VIAL IV PRN (17:45)
[2016-07-27] MEDS ORDERED: PHENYLEPHRINE 100MCG/ML 5ML SYR IV PRN (17:45)
[2016-07-27] MEDS ORDERED: HYDROmorphone INJ 2 MG/ML SYR/VIAL IV PRN (17:45)
[2016-07-27] MEDS ORDERED: MEPERIDINE HCL 25 MG/ML CARP IV PRN (17:45)
[2016-07-27] MEDS ORDERED: NALOXONE HCL 0.4 MG/1 ML VIAL/CARP IV PRN (17:45)
--- NOTE | 2016-07-27 18:20 | Anesthesiology Progress Note ---
Anesthesia Post Op Note Date & Time July 27, 2016 at 18:21 Vital Signs Pain Intensity: 4 Vital Signs Past 12 Hours Date Time Temp Pulse Resp B/P Pulse Ox O2 Delivery O2 Flow Rate FiO2 07/27/16 18:10 36.5 77 16 149/75 100 Nasal Cannula 3 07/27/16 18:00 80 16 155/81 100 Nasal Cannula 3 07/27/16 17:50 81 16 161/80 100 Nasal Cannula 3 07/27/16 17:40 80 18 140/74 100 Mask 5 07/27/16 17:30 81 16 159/71 100 Mask 10 07/27/16 17:20 37.2 88 12 160/76 100 Mask 10 07/27/16 08:04 Room Air 07/27/16 06:25 36.9 59 16 139/68 98 Room Air Notes Mental Status: alert / awake / arousable, participated in evaluation Pt Amnestic to Procedure: Yes Nausea / Vomiting: adequately controlled Pain: adequately controlled Airway Patency, RR, SpO2: stable & adequate BP & HR: stable & adequate Hydration State: stable & adequate Anesthetic Complications: no major complications apparent
[2016-07-27] MEDS: KETOROLAC TROMETHAMINE 15 MG/ML VIAL IV. SCH ×2 (18:43→23:48)
--- NOTE | 2016-07-27 22:20 | OPERATIVE REPORT ---
DATE OF OPERATION: 07/27/2016 SURGEON: Torey Leyva MD. MIDLEVEL PROVIDER: DAYSI Schmidt. PREOPERATIVE DIAGNOSIS: Right periprosthetic midshaft femur fracture. POSTOPERATIVE DIAGNOSIS: Same. PROCEDURE PERFORMED: Open reduction internal fixation of right periprosthetic femur fracture. COMPLICATIONS: None. ESTIMATED BLOOD LOSS: 300 mL FLUID REPLACEMENT: 1700 mL crystalloid fluid replacement. ANESTHESIA: General. SPECIMENS: None. 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 Six months ago, he sustained a fairly low level subtrochanteric femur fracture. He underwent IM nailing and has gone on to heal this. Over the past 2 weeks, he has developed pain and discomfort in his right thigh, below total hip replacement. He was seen about a week ago in clinic and x-rays were negative. He was actually scheduled to be seen today in my clinic. On late Wednesday evening, he was in bed and had muscle spasms and he twitched and he felt a snap in his leg. He was brought to the Emergency Room where x-rays revealed a femur fracture. The patient was admitted by the medicine service and medically optimized and indicated for surgical fixation. OPERATIVE IMPLANTS: Operative implants consisted of: 1. A Synthes 14-hole curved large fragment 4.5/5.0 locking plate. 2. 5.0 locking screws x5. 3. 4.5 cortical screws x3. 4. Synthes buttons x4. 5. Synthes 1.7 mm cables x4. OPERATIVE PROCEDURE: The patient was taken to the operating room, identified and placed on the operating table in supine position. All contact areas were appropriately padded. IV antibiotics were provided by anesthesia team. A spinal anesthetic was attempted for about an hour in the holding area but unsuccessful. He was brought to the operating room and a general anesthetic was implemented. Hooper catheter was then placed in a sterile fashion. The right leg was then cleaned with Hibiclens and then prepped with ChloraPrep and draped in usual sterile fashion. A direct lateral approach to the midshaft of the femur was then performed through longitudinal incision which extended from the greater trochanter distally to the supracondylar ridge of the femur. Sharp dissection was carried out through the subcutaneous tissue down to the level of the IT band. The IT band was incised longitudinally. The vastus lateralis was retracted anteriorly. I did inject locally with a total of about 60 mL of 0.25% Marcaine with epinephrine to try and limit blood loss. I then very carefully dissected and cauterized the vastus lateralis off the intermuscular septum and then retracted it anteriorly. The fracture was easily visualized. The bone quality looked a bit odd. There was not a large hematoma. There was some muscle in between the fractured pieces. I exposed the lateral aspect of the femur. We removed the blood clot that was there. I then reduced the fracture and was able to hold it anatomically. I then contoured the 14-hole plate on the lateral aspect of the femur. It was fixed distally with two 4.5 cortical screws and proximally with 2 unicortical 4.5 screws. X-ray was brought in. The fracture was anatomically aligned. I then fixed it distally with 4 additional 5.0 locking screws. I then placed 3 cable buttons and three 1.7 mm cables in a cerclage fashion around the proximal fracture segment. I then tightened these. I then removed one of the proximal cortical screws and placed a button and placed another cerclage wire. This was a bit more difficult as there was a bunch of heterotopic ossification, but I was able to pass this wire around all this tissue. We then snugged the cables down with 50 pounds of tension and then crimped them. I then placed a single 5.0 locking screw through the proximal hole into the trochanter. X-ray was brought in. Some lateral x-rays were obtained. The fracture was anatomically aligned. We then proceeded with closing. The wound was irrigated with copious amounts of pulsatile lavage solution. Two Hemovac drains were placed in the depth of the wound. The IT band was then closed with #1 Vicryl suture in a running fashion. The subcutaneous tissues were then closed with 2-0 Dexon suture in a buried interrupted fashion. Skin was closed skin ritika. Leg was then cleaned and dried and a sterile dressing of Xeroform, 4 x 4's, sterile cast padding, and Antoine bandage was applied. The patient was then brought out of general anesthesia and transferred to the recovery room in stable condition. The patient tolerated the procedure well with no complications. All needle and sponge counts were correct at the end of the operation. I attest to the content of the Intraoperative Record and any orders documented therein. Any exceptions are noted below. MTDD
[2016-07-27] MEDS: MINOCYCLINE HCL 100 MG PO SCH (22:42)
[2016-07-27] MEDS: FERROUS GLUCONATE 324 MG TAB PO SCH (22:43)
[2016-07-27] MEDS: DOCUSATE SODIUM 100 MG CAP PO SCH (22:45)
[2016-07-27] MEDS: ASPIRIN 325 MG ECTAB PO SCH (22:45)
[2016-07-27] MEDS: CEFAZOLIN IV 2,000 MG in DEXTROSE 5% 50ML 50 ML IV SCH (23:48)
[2016-07-27] MEDS: HYDROCORTISONE IV 100 MG in SYRINGE 0 ML IV SCH (23:48)
[2016-07-28] MEDS: HYDROmorphone INJ 2 MG/ML SYR/VIAL IV PRN ×6 (02:23→16:44)
[2016-07-28 04:00] VITALS: BP 111/68; PULSE 84; TEMP 36.9; O2SAT 100
[2016-07-28] MEDS: CEFAZOLIN IV 2,000 MG in DEXTROSE 5% 50ML 50 ML IV SCH (06:14)
[2016-07-28 06:25] LABS: HEMATOCRIT 30.3 % (42-52); MEAN CELL VOLUME 90.7 fL (80-100); MEAN CORPUSCULAR HEMOGLOBIN 29.3 pg (25-34); MEAN CORPUSCULAR HGB CONC 32.3 g/dl (32-36); MEAN PLATELET VOLUME 8.5 fL (7.4-10.4); PLATELET COUNT 202 K/uL (130-400); RED BLOOD COUNT 3.34 M/uL (4.7-6.1); WHITE BLOOD COUNT 7.82 K/uL (4.8-10.8)
[2016-07-28] MEDS: KETOROLAC TROMETHAMINE 15 MG/ML VIAL IV. SCH ×3 (06:25→18:02)
[2016-07-28] MEDS: HYDROCORTISONE IV 100 MG in SYRINGE 0 ML IV SCH ×2 (06:28→14:35)
[2016-07-28 07:00] LABS: BUN/CREATININE RATIO 15.7 (10-20); CALCIUM 8.2 mg/dl (8.5-10.1); CREATININE 0.78 mg/dl (0.60-1.40); POTASSIUM 4.4 mmol/L (3.5-5.1)
[2016-07-28 07:42] VITALS: BP 112/67; PULSE 87; TEMP 37; O2SAT 100
[2016-07-28] MEDS: METHADONE HCL 5 MG TAB PO SCH ×4 (07:45→21:10)
[2016-07-28] MEDS: FERROUS GLUCONATE 324 MG TAB PO SCH ×3 (09:08→18:04)
[2016-07-28] MEDS: BuPROPion SR 150 MG TABCR PO SCH ×3 (09:09→21:09)
[2016-07-28] MEDS: LISINOPRIL 10 MG TAB PO SCH (09:09)
[2016-07-28] MEDS: ESCITALOPRAM OXALATE 20 MG TAB PO SCH (09:09)
[2016-07-28] MEDS: ASPIRIN 325 MG ECTAB PO SCH ×2 (09:09→21:09)
[2016-07-28] MEDS: PANTOprazole SOD 40 MG TAB PO SCH (09:09)
[2016-07-28] MEDS: TAMSULOSIN HCL 0.4 MG CAP PO SCH ×2 (09:09→21:09)
[2016-07-28] MEDS: DOCUSATE SODIUM/SENNA 50/8.6MG TAB PO SCH (09:10)
[2016-07-28] MEDS: RANITIDINE HCL 150 MG TAB PO SCH ×2 (09:11→21:08)
[2016-07-28] MEDS: MINOCYCLINE HCL 100 MG PO SCH ×2 (09:11→21:10)
[2016-07-28] MEDS: MULTIVITAMIN TAB PO SCH (09:11)
[2016-07-28] MEDS: DOCUSATE SODIUM 100 MG CAP PO SCH ×2 (09:12→21:08)
[2016-07-28 10:20] VITALS: BP 160/77; PULSE 103; O2SAT 100
--- NOTE | 2016-07-28 10:43 | Anesthesiology Progress Note ---
Anesthesia Post Op Note Date & Time July 28, 2016 at 10:43 Vital Signs Pain Intensity: 7.0 Vital Signs Past 12 Hours Date Time Temp Pulse Resp B/P Pulse Ox O2 Delivery O2 Flow Rate FiO2 07/28/16 07:42 37.0 87 18 112/67 100 Room Air 07/28/16 04:00 36.9 84 16 111/68 100 CPAP 07/27/16 23:15 36.6 85 16 126/72 97 Room Air Notes Mental Status: alert / awake / arousable, participated in evaluation Pt Amnestic to Procedure: Yes Nausea / Vomiting: adequately controlled Pain: adequately controlled Airway Patency, RR, SpO2: stable & adequate BP & HR: stable & adequate Hydration State: stable & adequate Anesthetic Complications: no major complications apparent
--- NOTE | 2016-07-28 10:50 | Discharge Instructions ---
Discharge Instructions Date of Service July 28, 2016. Admission Reason for Admission: Rt Femoral Fracture Discharge Discharge Diagnosis / Problem: ORIF Right Femur Fracture Discharge Goals Goal(s): Decrease discomfort, Improve function, Increase independence, Improve disease control, Therapeutic intervention Activity Recommendations Activity Level: Assistance Required Therapies: Physical Therapy, Occupational Therapy Weightbearing Status: Right toe touch (Toe-touch WB right leg at MOST. Limit knee ROM to 90 degrees maximum) Toe-touch WB at max to right leg for 6 weeks Knee ROM, but limit to 90 degrees maximum . Additional Information Patient informed of condition: Yes Advance Directives: No DNR: No Level of Care: Acute Rehab Communicable Disease: No Prognosis: Improving Instructions / Follow-Up Instructions / Follow-Up Follow-up with Orthopedics 2 weeks post-op Current Hospital Diet Patient's current hospital diet: Regular Diet Discharge Diet Recommended Diet: Regular Diet Procedures Procedures Performed: Open Reduction Internal Fixation Right Femur Fracture Pending Studies Studies pending at discharge: no Medical Emergencies . Who to Call and When: Medical Emergencies: If at any time you feel your situation is an emergency, please call 911 immediately. . Non-Emergent Contact Non-Emergency issues call your: Surgeon . . "Provider Documentation" section prepared by Torey Leyva. . Core Measure Problem Core Measures: None
--- NOTE | 2016-07-28 11:00 | PROGRESS NOTE ---
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 He is doing much better today. Pain seems to be better controlled. Denies any chest pain or shortness of breath. Not feeling dizzy or lightheaded. OBJECTIVE: VITAL SIGNS: Temperature is 37.0. Vital signs stable. PHYSICAL EXAMINATION: GENERAL: Reveals a pleasant, middle-aged male. He is sitting up in his bed, looks pretty comfortable. EXTREMITIES: Examination of the right leg reveals the dressing to be clean, dry, and intact. He can dorsiflex and plantarflex his foot appropriately. He is neurologically intact. ASSESSMENT: 71-year-old male with underlying mastocytosis postop day 1 from an extensive ORIF right periprosthetic femur fracture. He is doing well, he is neurologically intact. His pain is reasonably well controlled. PLAN: 1. DVT prophylaxis including thigh-high TEDS, SCDs, and aspirin twice a day. 2. PT/OT. He can be touch weightbearing at most. Will limit his knee motion from 0-90 degrees maximum. 3. Medical management as per the medicine service. He did get a steroid burst around the time of surgery and for 24 hours postoperatively and will resume his normal prednisone dose. 4. Disposition: We will plan on discharging him hopefully to [facility]. From the orthopedic standpoint will be taking his drain out tomorrow and could go probably any time after that. I need see him back 2 weeks postop. Any orthopedic questions can be directed at [phone].
[2016-07-28 12:00] VITALS: BP 128/79; PULSE 83; TEMP 36.5; O2SAT 100
[2016-07-28 16:00] VITALS: BP 120/77; PULSE 85; TEMP 36.6; O2SAT 99
[2016-07-28] MEDS ORDERED: GLUCOSE 40% GEL 15 GM TUBE PO PRN (19:30)
[2016-07-28] MEDS ORDERED: GLUCAGON FOR INJ 1 MG VIAL SQ PRN (19:30)
[2016-07-28] MEDS ORDERED: GLUCOSE 10 TABS/TUBE PO PRN (19:30)
[2016-07-28] MEDS ORDERED: DEXTROSE 50% 50 ML SYR IV PRN (19:30)
[2016-07-28 19:37] VITALS: BP 115/82; PULSE 89; TEMP 36.9; O2SAT 100
[2016-07-28] MEDS: INSULIN ASPART 100 UNITS/ML 3 ML PEN SC SCH (21:12)
--- NOTE | 2016-07-28 21:13 | Progress Note ---
Medicine Progress Note Date & Time of Visit: July 28, 2016 at 1500. Subjective 71 yo M s/p ORID of R mid-shaft fracture on 07/27 -tolerating PO -pain is well-managed -currently NWB Objective Last 8 Hrs Date Time Temp Pulse Resp B/P Pulse Ox O2 Delivery O2 Flow Rate FiO2 07/28/16 16:00 36.6 85 18 120/77 99 Room Air 07/28/16 12:00 36.5 83 18 128/79 100 Room Air Physical Exam: GEN: WNWD, in no acute distress, alert and appropriate HEENT: NC/AT, pupils equal and round, normal sclerae, MMM CARDIO: reg rate, S1/2 heard without m/g/r LUNGS: CTA bilaterally, no crackles, rales or wheezes, good diaphragmatic excursion ABD: soft, non-tender, non-distended, no rebound or guarding EXTREMITY: RP and DP palpable 2+ bilat, no LE swelling or edema, extremities are warm and [id number], NEURO: CN 2-12 intact, decreased sensation in bilateral feet (chronic neuropathy ), dressing in place on R leg-C/D/I, drain with bloody drainage in place MUSC: 5/5 strength throughout, no focal deficits SKIN: warm and dry Laboratory Results: 07/28/16 05:50 07/28/16 05:50 Test 07/26/16 06:55 07/26/16 08:08 07/28/16 05:50 07/28/16 20:36 Immature Granulocyte % (Auto) 0.2 % White Blood Count 5.64 K/uL (4.8-10.8) Red Blood Count 3.90 M/uL (4.7-6.1) 3.34 M/uL (4.7-6.1) Hemoglobin 11.5 g/dL (14.0-18.0) Hematocrit 35.3 % (42-52) Mean Corpuscular Volume 90.5 fL (80-100) 90.7 fL (80-100) Mean Corpuscular Hemoglobin 29.5 pg (25-34) 29.3 pg (25-34) Mean Corpuscular Hemoglobin Concent 32.6 g/dl (32-36) 32.3 g/dl (32-36) Platelet Count 169 K/uL (130-400) Mean Platelet Volume 8.2 fL (7.4-10.4) 8.5 fL (7.4-10.4) Neutrophils (%) (Auto) 61.8 % Lymphocytes (%) (Auto) 29.1 % Monocytes (%) (Auto) 7.1 % Eosinophils (%) (Auto) 1.6 % Basophils (%) (Auto) 0.2 % Neutrophils # (Auto) 3.49 K/uL (1.4-6.5) Lymphocytes # (Auto) 1.64 K/uL (1.2-3.4) Monocytes # (Auto) 0.40 K/uL (0.11-0.59) Eosinophils # (Auto) 0.09 K/uL (0-0.5) Basophils # (Auto) 0.01 K/uL (0-0.2) Immature Granulocyte # (Auto) 0.01 K/uL (0.00-0.02) Prothrombin Time 11.1 SECONDS (9.0-12.0) Prothromb Time International Ratio 1.0 (0.9-1.1) Activated Partial Thromboplast Time 28.9 SECONDS (21.0-31.0) Partial Thromboplastin Ratio 1.1 Urine Color YELLOW Urine Appearance CLEAR (CLEAR) Urine pH 6.0 (4.5-7.5) Urine Specific [place] 1.017 (1.000-1.030) Urine Protein NEG (NEG) Urine Glucose (UA) NEG (NEG) Urine Ketones NEG (NEG) Urine Occult Blood NEG (NEG) Urine Nitrite NEG (NEG) Urine Bilirubin NEG (NEG) Urine Urobilinogen NEG (NEG) Urine Leukocyte Esterase TRACE (NEG) Urine WBC (Auto) 1-5 /hpf (0-5) Urine RBC (Auto) 0-4 /hpf (0-4) Urine Hyaline Casts (Auto) 1-5 /lpf (0-5) Urine Epithelial Cells (Auto) 0-5 /lpf (0-5) Urine Bacteria (Auto) NEG (NEG) RDW Standard Deviation 45.0 fL (36.4-46.3) RDW Coefficient of Variation 13.5 % (11.5-14.5) Anion Gap 6.0 mmol/L (3-11) Est Creatinine Clear Calc Drug Dose 94.7 ml/min Estimated GFR () 106.7 Estimated GFR (Non- 92.1 BUN/Creatinine Ratio 15.7 (10-20) Calcium Level 8.2 mg/dl (8.5-10.1) Bedside Glucose 241 mg/dl (70-99) Last 24 Hours Test 07/28/16 05:50 White Blood Count 7.82 K/uL Red Blood Count 3.34 M/uL Hemoglobin 9.8 g/dL Hematocrit 30.3 % Mean Corpuscular Volume 90.7 fL Mean Corpuscular Hemoglobin 29.3 pg Mean Corpuscular Hemoglobin Concent 32.3 g/dl RDW Standard Deviation 45.0 fL RDW Coefficient of Variation 13.5 % Platelet Count 202 K/uL Mean Platelet Volume 8.5 fL Sodium Level 137 mmol/L Potassium Level 4.4 mmol/L Chloride Level 101 mmol/L Carbon Dioxide Level 30 mmol/L Anion Gap 6.0 mmol/L Blood Urea Nitrogen 12 mg/dl Creatinine 0.78 mg/dl Est Creatinine Clear Calc Drug Dose 94.7 ml/min Estimated GFR () 106.7 Estimated GFR (Non- 92.1 BUN/Creatinine Ratio 15.7 Random Glucose 156 mg/dl Calcium Level 8.2 mg/dl Assessment & Plan 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 of pathological L femoral fracture, hx. of multiple abdominal surgeries presents with a R femoral fracture. Pathological R Femoral Fracture in the setting of Osteoporosis patient has mastocytosis with osteoporosis had been on long-term bisphosphonates, which was stopped after his last pathological fracture (of the L femur) He presented with R thigh pain after jerking movement while laying down X-rays show Acute moderately displaced mid shaft fracture of the right femur previous R CONCHITA s/p ORIF on 07/27-POD #1 and doing well with pain managed with narcotics and methadone. 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 Ortho to pull drain tomorrow. DO Ramon Benitez Hospitalist Consultants: Ortho Current Inpatient Medications: Current Inpatient Medications Medications (Trade) Dose Ordered Sig/Carlos A Route Start Time Stop Time Status Last Admin Dose Admin Acetaminophen (Tylenol Tab) 650 mg Q4H PRN PO 07/26/16 10:00 08/25/16 09:59 Polyethylene (Miralax Powder Packet) 17 gm DAILY PRN PO 07/26/16 10:15 08/25/16 10:14 Bupropion HCl (Wellbutrin-Sr Tab) 150 mg TID PO 07/26/16 14:00 08/25/16 13:59 07/28/16 14:35 150 MG Escitalopram Oxalate (Lexapro Tab) 20 mg QAM PO 07/27/16 09:00 08/26/16 08:59 07/28/16 09:09 20 MG Lisinopril (Zestril Tab) 10 mg QAM PO 07/27/16 09:00 08/26/16 08:59 07/28/16 09:09 10 MG Prednisone (PredniSONE TAB) 7.5 mg QAM PO 07/27/16 09:00 08/26/16 08:59 07/28/16 09:10 7.5 MG Ranitidine HCl (zANTac TAB) 150 mg BID PO 07/26/16 21:00 08/25/16 20:59 07/28/16 09:11 150 MG Senna/Docusate Sodium (Senokot S Tab) 3 tab DAILY PO 07/27/16 09:00 08/26/16 08:59 07/28/16 09:10 3 TAB Tamsulosin HCl (Flomax Cap) 0.4 mg BID PO 07/26/16 21:00 08/25/16 20:59 07/28/16 09:09 0.4 MG Hydromorphone HCl (Dilaudid Inj) 2 mg Q2HWA PRN IV 07/26/16 18:45 08/09/16 18:44 07/28/16 16:44 2 MG Methadone HCl 5 mg 5 mg BID@1230,2100 PO 07/26/16 21:00 08/09/16 20:59 07/28/16 12:38 5 MG Acetaminophen/ Empty Bag (Ofirmev Iv/ Empty Iv Bag 100ml) 65 ml @ 260 mls/hr Q6H PRN IV 07/26/16 23:45 08/25/16 23:44 07/27/16 01:08 260 MLS/HR Minocycline HCl (Minocin Cap) 100 mg BID PO 07/27/16 21:00 08/26/16 20:59 07/28/16 09:11 100 MG Ketorolac Tromethamine (Toradol Inj) 15 mg Q6H IV. 07/27/16 17:30 07/29/16 17:29 07/28/16 18:02 15 MG Magnesium Hydroxide (Milk Of Magnesia Susp) 30 ml Q6H PRN PO 07/27/16 17:30 08/26/16 17:29 Bisacodyl (Dulcolax Supp) 10 mg DAILY PRN ND 07/27/16 17:30 08/26/16 17:29 Docusate Sodium (coLACE CAP) 100 mg BID PO 07/27/16 21:00 08/26/16 20:59 07/28/16 09:12 100 MG Al Hydrox/Mg Hydrox/Simethicone (Maalox Max Susp) 15 ml Q4H PRN PO 07/27/16 17:30 08/26/16 17:29 Zolpidem Tartrate (Ambien Tab) 5 mg HSZ PRN PO 07/27/16 17:30 08/26/16 17:29 Multivitamins (Multivitamin Tab) 1 tab QAM PO 07/28/16 09:00 08/27/16 08:59 07/28/16 09:11 1 TAB Ondansetron HCl (Zofran Inj) 4 mg Q6H PRN IV 07/27/16 17:30 08/26/16 17:29 Metoclopramide HCl (Reglan Inj) 10 mg Q6H PRN IV 07/27/16 17:30 08/26/16 17:29 Ferrous Gluconate (Ferrous Gluconate Tab) 324 mg TIDM PO 07/27/16 20:00 08/26/16 19:59 07/28/16 18:04 324 MG Pantoprazole Sodium (Protonix Tab) 40 mg QAM PO 07/28/16 09:00 08/27/16 08:59 07/28/16 09:09 40 MG Aspirin (Ecotrin Tab) 325 mg BID PO 07/27/16 21:00 08/26/16 20:59 07/28/16 09:09 325 MG Methadone HCl (Dolophine Tab) 10 mg BID@8612,8868 PO 07/28/16 07:30 08/09/16 07:29 07/28/16 18:05 10 MG
[2016-07-29] MEDS: KETOROLAC TROMETHAMINE 15 MG/ML VIAL IV. SCH ×3 (00:16→12:37)
[2016-07-29] MEDS: HYDROmorphone INJ 2 MG/ML SYR/VIAL IV PRN ×3 (01:05→08:57)
[2016-07-29 06:11] LABS: HEMATOCRIT 24.9 % (42-52); MEAN CELL VOLUME 89.9 fL (80-100); MEAN CORPUSCULAR HEMOGLOBIN 30.7 pg (25-34); MEAN CORPUSCULAR HGB CONC 34.1 g/dl (32-36); MEAN PLATELET VOLUME 8.4 fL (7.4-10.4); PLATELET COUNT 156 K/uL (130-400); RED BLOOD COUNT 2.77 M/uL (4.7-6.1); WHITE BLOOD COUNT 5.89 K/uL (4.8-10.8)
[2016-07-29 06:30] LABS: ESTIMATED AVERAGE GLUCOSE 105 mg/dl; HA1C FLAG Normal (Normal)
[2016-07-29 06:46] LABS: BUN/CREATININE RATIO 17.9 (10-20); CALCIUM 7.9 mg/dl (8.5-10.1); CREATININE 0.83 mg/dl (0.60-1.40)
[2016-07-29 07:24] VITALS: BP 117/69; PULSE 85; TEMP 36.3; O2SAT 98
[2016-07-29] MEDS: INSULIN ASPART 100 UNITS/ML 3 ML PEN SC SCH ×4 (08:00→21:00)
[2016-07-29] MEDS: METHADONE HCL 5 MG TAB PO SCH ×4 (08:02→21:21)
[2016-07-29] MEDS: ASPIRIN 325 MG ECTAB PO SCH ×2 (09:02→21:21)
[2016-07-29] MEDS: TAMSULOSIN HCL 0.4 MG CAP PO SCH ×2 (09:02→21:22)
[2016-07-29] MEDS: FERROUS GLUCONATE 324 MG TAB PO SCH ×3 (09:02→17:33)
[2016-07-29] MEDS: RANITIDINE HCL 150 MG TAB PO SCH ×2 (09:03→21:21)
[2016-07-29] MEDS: LISINOPRIL 10 MG TAB PO SCH (09:03)
[2016-07-29] MEDS: DOCUSATE SODIUM/SENNA 50/8.6MG TAB PO SCH (09:03)
[2016-07-29] MEDS: DOCUSATE SODIUM 100 MG CAP PO SCH ×2 (09:03→21:21)
[2016-07-29] MEDS: BuPROPion SR 150 MG TABCR PO SCH ×3 (09:03→21:22)
[2016-07-29] MEDS: ESCITALOPRAM OXALATE 20 MG TAB PO SCH (09:03)
[2016-07-29] MEDS: MULTIVITAMIN TAB PO SCH (09:04)
[2016-07-29] MEDS: PANTOprazole SOD 40 MG TAB PO SCH (09:04)
[2016-07-29] MEDS: MINOCYCLINE HCL 100 MG PO SCH ×2 (09:05→21:23)
[2016-07-29] MEDS ORDERED: CALCIUM GLUCONATE 10% 1,000 MG in SODIUM CHLORIDE 0.9% 50ML 50 ML IV ONE (09:15)
[2016-07-29 15:10] VITALS: BP 127/68; PULSE 83; TEMP 37.2; O2SAT 96
--- NOTE | 2016-07-29 17:07 | Progress Note ---
Medicine Progress Note Date & Time of Visit: July 29, 2016 at 17:03. 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 of pathological L femoral fracture, hx. of multiple abdominal surgeries presents with a R femoral fracture. pain controlled constipated since admission but concerned that sitting on the toilet may hurt him denies more numbess/tingling in feet that normal with known neuropathy sugars rasta overnight and ISS added tolerating PO Ortho pulled his drain today with plan to change dressing in am. slight drop in H/H overnight, but patient is asymptomatic Objective Last 8 Hrs Date Time Temp Pulse Resp B/P Pulse Ox O2 Delivery O2 Flow Rate FiO2 07/29/16 15:10 37.2 83 18 127/68 96 Room Air Physical Exam: GEN: WNWD, in no acute distress, alert and appropriate HEENT: NC/AT, normal sclerae, MMM CARDIO: reg rate, S1/2 heard without m/g/r LUNGS: CTA bilaterally, no crackles, rales or wheezes, good diaphragmatic excursion ABD: soft, non-tender, non-distended, no rebound or guarding, +BS EXTREMITY: RP and DP palpable 2+ bilat, no LE swelling or edema, extremities are warm and [id number] NEURO: CN 2-12 grossly intact, decreased sensation in bilateral feet (chronic neuropathy), dressing in place on R leg-C/D/I MUSC: moves all extremities equally SKIN: warm and dry Laboratory Results: 07/29/16 06:01 07/29/16 06:01 Test 07/26/16 06:55 07/26/16 08:08 07/29/16 05:01 07/29/16 06:01 Immature Granulocyte % (Auto) 0.2 % White Blood Count 5.64 K/uL (4.8-10.8) Red Blood Count 3.90 M/uL (4.7-6.1) 2.77 M/uL (4.7-6.1) Hemoglobin 11.5 g/dL (14.0-18.0) Hematocrit 35.3 % (42-52) Mean Corpuscular Volume 90.5 fL (80-100) 89.9 fL (80-100) Mean Corpuscular Hemoglobin 29.5 pg (25-34) 30.7 pg (25-34) Mean Corpuscular Hemoglobin Concent 32.6 g/dl (32-36) 34.1 g/dl (32-36) Platelet Count 169 K/uL (130-400) Mean Platelet Volume 8.2 fL (7.4-10.4) 8.4 fL (7.4-10.4) Neutrophils (%) (Auto) 61.8 % Lymphocytes (%) (Auto) 29.1 % Monocytes (%) (Auto) 7.1 % Eosinophils (%) (Auto) 1.6 % Basophils (%) (Auto) 0.2 % Neutrophils # (Auto) 3.49 K/uL (1.4-6.5) Lymphocytes # (Auto) 1.64 K/uL (1.2-3.4) Monocytes # (Auto) 0.40 K/uL (0.11-0.59) Eosinophils # (Auto) 0.09 K/uL (0-0.5) Basophils # (Auto) 0.01 K/uL (0-0.2) Immature Granulocyte # (Auto) 0.01 K/uL (0.00-0.02) Prothrombin Time 11.1 SECONDS (9.0-12.0) Prothromb Time International Ratio 1.0 (0.9-1.1) Activated Partial Thromboplast Time 28.9 SECONDS (21.0-31.0) Partial Thromboplastin Ratio 1.1 Urine Color YELLOW Urine Appearance CLEAR (CLEAR) Urine pH 6.0 (4.5-7.5) Urine Specific [place] 1.017 (1.000-1.030) Urine Protein NEG (NEG) Urine Glucose (UA) NEG (NEG) Urine Ketones NEG (NEG) Urine Occult Blood NEG (NEG) Urine Nitrite NEG (NEG) Urine Bilirubin NEG (NEG) Urine Urobilinogen NEG (NEG) Urine Leukocyte Esterase TRACE (NEG) Urine WBC (Auto) 1-5 /hpf (0-5) Urine RBC (Auto) 0-4 /hpf (0-4) Urine Hyaline Casts (Auto) 1-5 /lpf (0-5) Urine Epithelial Cells (Auto) 0-5 /lpf (0-5) Urine Bacteria (Auto) NEG (NEG) Estimated Average Glucose 105 mg/dl Hemoglobin A1c 5.3 % (4.5-5.6) RDW Standard Deviation 44.7 fL (36.4-46.3) RDW Coefficient of Variation 13.6 % (11.5-14.5) Anion Gap 5.0 mmol/L (3-11) Est Creatinine Clear Calc Drug Dose 89.0 ml/min Estimated GFR () 104.1 Estimated GFR (Non- 89.8 BUN/Creatinine Ratio 17.9 (10-20) Calcium Level 7.9 mg/dl (8.5-10.1) Test 07/29/16 12:12 Bedside Glucose 137 mg/dl (70-99) Last 24 Hours Test 07/28/16 18:53 07/28/16 20:36 07/29/16 05:01 07/29/16 06:01 Bedside Glucose 225 mg/dl 241 mg/dl Estimated Average Glucose 105 mg/dl Hemoglobin A1c 5.3 % White Blood Count 5.89 K/uL Red Blood Count 2.77 M/uL Hemoglobin 8.5 g/dL Hematocrit 24.9 % Mean Corpuscular Volume 89.9 fL Mean Corpuscular Hemoglobin 30.7 pg Mean Corpuscular Hemoglobin Concent 34.1 g/dl RDW Standard Deviation 44.7 fL RDW Coefficient of Variation 13.6 % Platelet Count 156 K/uL Mean Platelet Volume 8.4 fL Sodium Level 137 mmol/L Potassium Level 4.0 mmol/L Chloride Level 102 mmol/L Carbon Dioxide Level 30 mmol/L Anion Gap 5.0 mmol/L Blood Urea Nitrogen 15 mg/dl Creatinine 0.83 mg/dl Est Creatinine Clear Calc Drug Dose 89.0 ml/min Estimated GFR () 104.1 Estimated GFR (Non- 89.8 BUN/Creatinine Ratio 17.9 Random Glucose 98 mg/dl Calcium Level 7.9 mg/dl Test 07/29/16 08:06 07/29/16 12:12 Bedside Glucose 99 mg/dl 137 mg/dl Assessment & Plan 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 of pathological L femoral fracture, hx. of multiple abdominal surgeries presents with a R femoral fracture. Pathological R Femoral Fracture in the setting of Osteoporosis patient has mastocytosis with osteoporosis had been on long-term bisphosphonates, which was stopped after his last pathological fracture (of the L femur) He presented with R thigh pain after jerking movement while laying down X-rays show Acute moderately displaced mid shaft fracture of the right femur previous R CONCHITA s/p ORIF on 07/27-POD #2 and doing well with pain managed with narcotics and methadone. s/p drain pulled today plan to DC to rehab in am. 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 No indication for transfusion at this time. Repeat H/H in am. HTN blood pressure is stable continue CORBY-I PMR on chronic steroids ISS added overnight in post-operative setting with the stress from surgery in addition to the steroid use here. BS currently at goal. Depression/Anxiety stable continue home meds DVT ppx ASA 325mg PO BID FULL CODE Dispo-likely dispo to rehab in am DO Ramon Benitez Hospitalist Consultants: Ortho Current Inpatient Medications: Current Inpatient Medications Medications (Trade) Dose Ordered Sig/Carlos A Route Start Time Stop Time Status Last Admin Dose Admin Acetaminophen (Tylenol Tab) 650 mg Q4H PRN PO 07/26/16 10:00 08/25/16 09:59 Polyethylene (Miralax Powder Packet) 17 gm DAILY PRN PO 07/26/16 10:15 08/25/16 10:14 Bupropion HCl (Wellbutrin-Sr Tab) 150 mg TID PO 07/26/16 14:00 08/25/16 13:59 07/29/16 14:14 150 MG Escitalopram Oxalate (Lexapro Tab) 20 mg QAM PO 07/27/16 09:00 08/26/16 08:59 07/29/16 09:03 20 MG Lisinopril (Zestril Tab) 10 mg QAM PO 07/27/16 09:00 08/26/16 08:59 07/29/16 09:03 10 MG Prednisone (PredniSONE TAB) 7.5 mg QAM PO 07/27/16 09:00 08/26/16 08:59 07/29/16 09:04 7.5 MG Ranitidine HCl (zANTac TAB) 150 mg BID PO 07/26/16 21:00 08/25/16 20:59 07/29/16 09:03 150 MG Senna/Docusate Sodium (Senokot S Tab) 3 tab DAILY PO 07/27/16 09:00 08/26/16 08:59 07/29/16 09:03 3 TAB Tamsulosin HCl (Flomax Cap) 0.4 mg BID PO 07/26/16 21:00 08/25/16 20:59 07/29/16 09:02 0.4 MG Hydromorphone HCl (Dilaudid Inj) 2 mg Q2HWA PRN IV 07/26/16 18:45 08/09/16 18:44 07/29/16 08:57 2 MG Methadone HCl 5 mg 5 mg BID@1230,2100 PO 07/26/16 21:00 08/09/16 20:59 07/29/16 12:12 5 MG Acetaminophen/ Empty Bag (Ofirmev Iv/ Empty Iv Bag 100ml) 65 ml @ 260 mls/hr Q6H PRN IV 07/26/16 23:45 08/25/16 23:44 07/27/16 01:08 260 MLS/HR Minocycline HCl (Minocin Cap) 100 mg BID PO 07/27/16 21:00 08/26/16 20:59 07/29/16 09:05 100 MG Ketorolac Tromethamine (Toradol Inj) 15 mg Q6H IV. 07/27/16 17:30 07/29/16 17:29 07/29/16 12:37 15 MG Magnesium Hydroxide (Milk Of Magnesia Susp) 30 ml Q6H PRN PO 07/27/16 17:30 08/26/16 17:29 Bisacodyl (Dulcolax Supp) 10 mg DAILY PRN IA 07/27/16 17:30 08/26/16 17:29 Docusate Sodium (coLACE CAP) 100 mg BID PO 07/27/16 21:00 08/26/16 20:59 07/29/16 09:03 100 MG Al Hydrox/Mg Hydrox/Simethicone (Maalox Max Susp) 15 ml Q4H PRN PO 07/27/16 17:30 08/26/16 17:29 Zolpidem Tartrate (Ambien Tab) 5 mg HSZ PRN PO 07/27/16 17:30 08/26/16 17:29 Multivitamins (Multivitamin Tab) 1 tab QAM PO 07/28/16 09:00 08/27/16 08:59 07/29/16 09:04 1 TAB Ondansetron HCl (Zofran Inj) 4 mg Q6H PRN IV 07/27/16 17:30 08/26/16 17:29 Metoclopramide HCl (Reglan Inj) 10 mg Q6H PRN IV 07/27/16 17:30 08/26/16 17:29 Ferrous Gluconate (Ferrous Gluconate Tab) 324 mg TIDM PO 07/27/16 20:00 08/26/16 19:59 07/29/16 12:38 324 MG Pantoprazole Sodium (Protonix Tab) 40 mg QAM PO 07/28/16 09:00 08/27/16 08:59 07/29/16 09:04 40 MG Aspirin (Ecotrin Tab) 325 mg BID PO 07/27/16 21:00 08/26/16 20:59 07/29/16 09:02 325 MG Methadone HCl (Dolophine Tab) 10 mg BID@0730,1745 PO 07/28/16 07:30 08/09/16 07:29 07/29/16 08:02 10 MG Insulin Aspart (novoLOG ASPART) SLIDING SCALE If C... ACHS SC 07/28/16 21:00 08/27/16 20:59 07/28/16 21:12 3 UNITS Glucose (Glucose 40% Gel) 15-30 GRAMS 15 GRAMS... UD PRN PO 07/28/16 19:30 08/27/16 19:29 Glucose (Glucose Chew Tab) 4-8 Tablets 4 Tabl... UD PRN PO 07/28/16 19:30 08/27/16 19:29 Dextrose (Dextrose 50% 50ML Syringe) 25-50ML OF 50% DW IV FOR... UD PRN IV 07/28/16 19:30 08/27/16 19:29 Glucagon (Glucagon Inj) 1 mg UD PRN SQ 07/28/16 19:30 08/27/16 19:29
[2016-07-29] MEDS: KETOROLAC TROMETHAMINE 15 MG/ML VIAL IV. PRN (19:27)
--- NOTE | 2016-07-29 19:54 | PROGRESS NOTE ---
DATE: 07/29/2016 SUBJECTIVE: A 71-year-old gentleman postop day #2 from ORIF of right periprosthetic femur fracture. He is doing pretty well. Pain is controlled. His biggest complaint is a neuropathic pain that has got. No chest pain or shortness of breath. OBJECTIVE: VITAL SIGNS: Temperature is 37.2. Vital signs stable. GENERAL: Reveals a pleasant, elderly male. He is sitting up in his bedside chair. Looks pretty comfortable. EXTREMITIES: Examination of the right leg reveals some slight bloody drainage on the dressing. He can dorsiflex and plantarflex his foot appropriately. He is neurologically intact. ASSESSMENT: A 71-year-old gentleman postoperative day #2 from a right periprosthetic femur fracture, doing pretty well. Pain seems to be controlled. PLAN: We are going to remove his drain today. Will proceed with the therapy. He is touch weightbearing only right leg. Likely discharged tomorrow if medically stable. He is hoping to go to a local [facility] facility. 1. DVT prophylaxis including thigh-high TEDs, SCDs, and aspirin twice a day. 2. PT/OT. He is touch weightbearing only. 3. Medical management as per the medicine service. 4. Disposition: We will plan to do a discharge him to a [facility] facility, likely tomorrow, if doing okay.
[2016-07-29 23:20] VITALS: BP 118/67; PULSE 81; TEMP 37; O2SAT 99
[2016-07-30] MEDS: KETOROLAC TROMETHAMINE 15 MG/ML VIAL IV. PRN ×3 (01:45→09:17)
[2016-07-30 06:17] LABS: MEAN CELL VOLUME 90.9 fL (80-100); MEAN CORPUSCULAR HEMOGLOBIN 29.5 pg (25-34); MEAN CORPUSCULAR HGB CONC 32.4 g/dl (32-36); MEAN PLATELET VOLUME 8.6 fL (7.4-10.4); PLATELET COUNT 194 K/uL (130-400); RED BLOOD COUNT 2.75 M/uL (4.7-6.1); WHITE BLOOD COUNT 6.64 K/uL (4.8-10.8)
[2016-07-30 06:43] LABS: BUN/CREATININE RATIO 20.6 (10-20); CALCIUM 8.1 mg/dl (8.5-10.1); CREATININE 0.92 mg/dl (0.60-1.40); MAGNESIUM 2.2 mg/dl (1.8-2.4); POTASSIUM 4.2 mmol/L (3.5-5.1)
[2016-07-30 06:45] LABS: ALB/GLOB RATIO 0.8 (0.9-2)
[2016-07-30 07:33] VITALS: BP 93/66; PULSE 82; TEMP 37; O2SAT 99
[2016-07-30] MEDS: METHADONE HCL 5 MG TAB PO SCH ×2 (07:48→12:11)
--- NOTE | 2016-07-30 07:51 | PROGRESS NOTE ---
DATE: 07/30/2016 DATE: 07/30/2016. SUBJECTIVE: A 71-year-old gentleman postop day 3 from ORIF of a right periprosthetic femur fracture. He is doing pretty well. Pain seems to be controlled. Denies any chest pain or shortness of breath. Not feeling dizzy or lightheaded. OBJECTIVE: VITAL SIGNS: Temperature 37.0. Vital signs stable. PHYSICAL EXAMINATION: GENERAL: Reveals a pleasant, middle-aged male. He is lying in bed, looks pretty comfortable. EXTREMITIES: Examination of the right hip and leg reveals the leg to be well aligned. Incision is clean, dry with no significant drainage. His thigh is soft and supple. Hip is located. He is neurologically intact. Wound looks good. LABORATORY DATA: Hemoglobin 8.1, hematocrit 25.0. Electrolytes are stable. ASSESSMENT: A 71-year-old gentleman postop day 3 from ORIF of periprosthetic femur fracture. He is doing well. He is anemic, but asymptomatic. PLAN: 1. DVT prophylaxis including thigh-high TEDs, SCDs, and aspirin twice a day. 2. PT/OT. He is touch weightbearing only for the next 6 weeks. Knee range of motion is 0-90 degrees. 3. Medical management. 4. Anemia. I would recommend continued iron supplementation. I do not think he needs any blood as he is asymptomatic. 5. Disposition. He is orthopedically acceptable for discharge at any time. I need to see him back 2 weeks out from surgery. Any questions can be directed to me at [phone].
[2016-07-30] MEDS: DOCUSATE SODIUM/SENNA 50/8.6MG TAB PO SCH (09:00)
[2016-07-30] MEDS: LISINOPRIL 10 MG TAB PO SCH (09:00)
[2016-07-30] MEDS: DOCUSATE SODIUM 100 MG CAP PO SCH (09:00)
[2016-07-30] MEDS: FERROUS GLUCONATE 324 MG TAB PO SCH (09:04)
[2016-07-30] MEDS: ASPIRIN 325 MG ECTAB PO SCH (09:05)
[2016-07-30] MEDS: ESCITALOPRAM OXALATE 20 MG TAB PO SCH (09:05)
[2016-07-30] MEDS: TAMSULOSIN HCL 0.4 MG CAP PO SCH (09:05)
[2016-07-30] MEDS: PANTOprazole SOD 40 MG TAB PO SCH (09:06)
[2016-07-30] MEDS: MULTIVITAMIN TAB PO SCH (09:06)
[2016-07-30] MEDS: BuPROPion SR 150 MG TABCR PO SCH (09:09)
[2016-07-30] MEDS: RANITIDINE HCL 150 MG TAB PO SCH (09:09)
[2016-07-30] MEDS: MINOCYCLINE HCL 100 MG PO SCH (09:12)
[2016-07-30] MEDS: INSULIN ASPART 100 UNITS/ML 3 ML PEN SC SCH (09:23)
--- NOTE | 2016-07-30 10:41 | Discharge Summary ---
Discharge Summary Date of Service July 30, 2016. Discharge Summary Admission Date: July 26, 2016 at 10:01 Discharge Date: July 30, 2016 Discharge Disposition: Rehab Principal Diagnosis: Pathological R Femoral Fracture in the setting of Osteoporosis Mastocytosis Previous Staph Infection of R hip Anemia HTN PMR Depression/Anxiety Procedures: s/p R ORIF-07/27 Vaccinations: None. Consultations: Ortho Pending Studies/Follow-Up: see instructions below Medication Reconciliation Continued Medications: Ascorbic Acid (Vitamin C) 500 Mg Cap 500 MG PO BID Bupropion (Wellbutrin Sr) 150 Mg Ertab 150 MG PO TID, 0 Refills Cholecalciferol (Vitamin D3) 1,000 Unit Tab 77663 UNITS PO DAILY for 90 Days, TAB 3 Refills Escitalopram Oxalate (Lexapro) 20 Mg Tab 20 MG PO QAM, 0 Refills Ferrous Sulfate (Ferrous Sulfate) 325 Mg Tab 325 MG PO BID Lisinopril (Zestril) 10 Mg Tab 10 MG PO QAM, TAB Loratadine (Claritin) 10 Mg Tab 20 MG PO QAM, 0 Refills Methadone Hcl (Dolophine) 5 Mg Tab 5 MG PO QID, TAB Minocycline (Minocin) 100 Mg Cap 100 MG PO BID, CAP Multiple Vitamins W/ Minerals (Centrum Silver 50+Men) 1 Tab Tab 1 TAB PO DAILY Naproxen (Aleve) 220 Mg Tab 220 MG PO DIRECTED PRN for Pain, TAB Prednisone (Prednisone) 5 Mg Tab 7.5 MG PO QAM, TAB Ranitidine Hcl (Zantac) 150 Mg Tab 150 MG PO BID, TAB Sennosides-Docusate Sodium (Jhoana-Colace) 1 Tab Tab 3 CAP PO DAILY Tamsulosin Hcl (Flomax) 0.4 Mg Cap 0.4 MG PO BID, CAP Admission Information HPI (per Admitting provider): 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 of pathological L femoral fracture, hx. of multiple abdominal surgeries presents with a R femoral fracture. States that for the past week his R leg has been hurting - he had seen orthopedic surgery as an outpatient; had X-rays done , has had previous right total hip arthroplasty. X-rays looked okay and there were no acute issues. He states the pain persisted and he was going to go back to ortho on Wednesday (07/27), but this morning he made a jerking movement while laying and had acute R leg pain. Brought in the ER and found to have a mid- shaft fracture on R. Pain controlled with IV morphine. Physical Exam (per Admitting): General Appearance: no apparent distress Head: normocephalic, atraumatic Eyes: normal inspection ENT: hearing grossly normal Respiratory/Chest: chest non-tender, lungs clear, normal breath sounds, no respiratory distress, no accessory muscle use Cardiovascular: regular rate, rhythm, no edema, no murmur Abdomen/GI: normal bowel sounds, non tender, soft Extremities/Musculoskelatal: no calf tenderness, normal capillary refill, no pedal edema, + pertinent finding (R LE in traction) Neurologic/Psych: no motor/sensory deficits, alert, normal mood/affect Hospital Course 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 of pathological L femoral fracture, hx. of multiple abdominal surgeries presents with a R femoral fracture. Pathological R Femoral Fracture in the setting of Osteoporosis patient has mastocytosis with osteoporosis had been on long-term bisphosphonates, which was stopped after his last pathological fracture (of the L femur) He presented with R thigh pain after jerking movement while laying down X-rays show Acute moderately displaced mid shaft fracture of the right femur previous R CONCHITA s/p ORIF on 07/27-POD #2 and doing well with pain managed with narcotics and methadone. s/p drain pulled today plan to DC to rehab in am. 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 No indication for transfusion at this time. Repeat H/H in am. HTN blood pressure is stable continue CORBY-I PMR on chronic steroids ISS added overnight in post-operative setting with the stress from surgery in addition to the steroid use here. BS currently at goal. Depression/Anxiety stable continue home meds DVT ppx ASA 325mg PO BID On day of discharge he was afebrile and HD stable. He was discharged to rehab in stable condition with close CP follow-up. Total time spent on discharge = 60 minutes This includes examination of the patient, discharge planning, medication reconciliation, and communication with other providers. Discharge Instructions Discharge Instructions Date of Service July 28, 2016. Admission Reason for Admission: Rt Femoral Fracture Discharge Discharge Diagnosis / Problem: ORIF Right Femur Fracture Discharge Goals Goal(s): Decrease discomfort, Improve function, Increase independence, Improve disease control, Therapeutic intervention Activity Recommendations Activity Level: Assistance Required Therapies: Physical Therapy, Occupational Therapy Weightbearing Status: Right toe touch (Toe-touch WB right leg at MOST. Limit knee ROM to 90 degrees maximum) Toe-touch WB at max to right leg for 6 weeks Knee ROM, but limit to 90 degrees maximum . Additional Information Patient informed of condition: Yes Advance Directives: No DNR: No Level of Care: Acute Rehab Communicable Disease: No Prognosis: Improving Instructions / Follow-Up Instructions / Follow-Up Follow-up with Orthopedics 2 weeks post-op Current Hospital Diet Patient's current hospital diet: Regular Diet Discharge Diet Recommended Diet: Regular Diet Procedures Procedures Performed: Open Reduction Internal Fixation Right Femur Fracture Pending Studies Studies pending at discharge: no Medical Emergencies . Who to Call and When: Medical Emergencies: If at any time you feel your situation is an emergency, please call 911 immediately. . Non-Emergent Contact Non-Emergency issues call your: Surgeon . . "Provider Documentation" section prepared by Torey Leyva. . Core Measure Problem Core Measures: None Addendum: Mya Noble DO on 07/30/16 @ 10:35 Discharge Inst - Addendum Addendum Notes: ADDITIONAL PROVIDER INSTRUCTIONS: -Please take all medications as instructed. -Follow all post-operative instructions as above and follow-up with Ortho as recommended as outpatient -I recommend a PCP follow-up appointment 1-2 weeks after discharge for follow- up of this hospitalization -REHAB FACILITY STAFF: Please draw H/H on this patient in 2-3 days and send results to patient's primary care physician It was a pleasure taking care of you! Call if you have any questions or problems. You can reach a [facility] hospitalist on duty at [facility] 24 hours a day by calling [phone]. Take care of yourself. DO [facility] Hospital[facility] Addendum Provider: Addendum Notes were documented by provider Mya Noble. Additional Copies To Naveen Coreas M.D.
[2016-07-30] MEDS ORDERED: NRN100 PO (11:21)
[2016-07-30] MEDS ORDERED: MTH5 PO (11:21)
[2016-07-30] MEDS: HYDROmorphone INJ 2 MG/ML SYR/VIAL IV PRN (12:13)
[2016-07-30 12:21] VITALS: BP 93/66; PULSE 82; TEMP 37; O2SAT 99
== END 2016-07-30 14:13 | DRG 482 ==
LOC: ENRESERVTM → ENRESERVDT → EDBD 06:18 → C.EDB 06:19 → C.3E 10:01
PROVIDERS: ADMIT Family Medicine; ATTEND Hospitalist
PROC: 0QS804Z Reposition Right Femoral Shaft with Internal Fixation Device, Open Approach (ICD-10-PCS; principal; 2016-07-27 13:30)
DX: M97.01XA Periprosthetic fracture around internal prosthetic right hip joint, initial encounter (principal); D75.89 Other specified diseases of blood and blood-forming organs; M48.00 Spinal stenosis, site unspecified; I10 Essential (primary) hypertension; D50.0 Iron deficiency anemia secondary to blood loss (chronic); E11.9 Type 2 diabetes mellitus without complications; M35.3 Polymyalgia rheumatica; K59.00 Constipation, unspecified; F32.9 Major depressive disorder, single episode, unspecified; F41.9 Anxiety disorder, unspecified; Z79.899 Other long term (current) drug therapy; Z79.52 Long term (current) use of systemic steroids; Z87.891 Personal history of nicotine dependence; Z88.3 Allergy status to other anti-infective agents; Z82.3 Family history of stroke; Z83.3 Family history of diabetes mellitus; Z82.49 Family history of ischemic heart disease and other diseases of the circulatory system

== ENCOUNTER → 2017-03-26 | Outpatient (CLI) | payer OTHER, BC ==
[~2017-03-26] MED LIST changes: +ASCO1CAP3 PO; -ASPEC325 PO; +CHOL1000 PO; -CHOL100010 PO; -FLM4 PO; -KFL500 PO; -METH5TAB2 PO; +MTH5 PO; +MULT-1093 PO; +NAPR1TAB9 PO; +NRN100 PO; -PRED10TA PO; -RXC5 PO; +TAMS0.4C38 PO
[2017-03-26 16:52] LABS: HEMATOCRIT 33.7 % (42-52); HEMOGLOBIN 11.1 g/dL (14.0-18.0); MEAN CELL VOLUME 88.2 fL (80-100); MEAN CORPUSCULAR HEMOGLOBIN 29.1 pg (25-34); MEAN CORPUSCULAR HGB CONC 32.9 g/dl (32-36); MEAN PLATELET VOLUME 9.2 fL (7.4-10.4); PLATELET COUNT 183 K/uL (130-400); RED CELL DISTRIBUTION WIDTH CV 14.9 % (11.5-14.5); RED CELL DISTRIBUTION WIDTH SD 48.2 fL (36.4-46.3); WHITE BLOOD COUNT 5.26 K/uL (4.8-10.8)
== END | disposition home or self-care (01) ==
LOC: C.LABBC 14:06
PROVIDERS: ATTEND Orthopaedic Surgery Sports Medicine
DX: M25.559 Pain in unspecified hip (principal)

== ENCOUNTER 2017-04-15 08:58 | Emergency (ER) | payer OTHER, BC ==
[~2017-04-15] VITALS: Ht 165.1 cm; Wt 85.0 kg
[2017-04-15 09:09] VITALS: Ht 165.1 cm; Wt 85.0 kg
[2017-04-15] MEDS ORDERED: MoRPHine SULFATE 4 MG/ML 1 ML CARP\\VIAL IV STA (09:27)
[2017-04-15 09:33] LABS: BASO % 0.1 %; BASO ABS # 0.01 K/uL (0-0.2); EOS % 0.4 %; EOS ABS # 0.03 K/uL (0-0.5); HEMATOCRIT 36.5 % (42-52); HEMOGLOBIN 12.3 g/dL (14.0-18.0); IG# 0.02 K/uL (0.00-0.02); LYMPH % 13.4 %; LYMPH ABS # 1.02 K/uL (1.2-3.4); MEAN CELL VOLUME 89.2 fL (80-100); MEAN CORPUSCULAR HEMOGLOBIN 30.1 pg (25-34); MEAN CORPUSCULAR HGB CONC 33.7 g/dl (32-36); MONO % 8.5 %; MONO ABS # 0.65 K/uL (0.11-0.59); NEUT % 77.3 %; NEUT ABS # 5.89 K/uL (1.4-6.5); PLATELET COUNT 207 K/uL (130-400); RED CELL DISTRIBUTION WIDTH CV 14.6 % (11.5-14.5); RED CELL DISTRIBUTION WIDTH SD 47.8 fL (36.4-46.3); WHITE BLOOD COUNT 7.62 K/uL (4.8-10.8)
[2017-04-15 09:45] LABS: PTT PATIENT 28.2 SECONDS (21.0-31.0)
[2017-04-15 09:50] LABS: CALCIUM 9.3 mg/dl (8.5-10.1)
[2017-04-15 09:54] LABS: CKMB 1.1 ng/ml (0.5-3.6); TOTAL PROTEIN 8.1 gm/dl (6.4-8.2)
--- NOTE | 2017-04-15 10:05 | EMERGENCY ROOM VISIT NOTE ---
History Report prepared by Kumar: Camille Lanier Under the Supervision of: Dr. Gm Waldrop D.O. First contact with patient: 09:13 Chief Complaint: LEG PAIN,LEG INJURY Stated Complaint: LEG,KNEE, SHOULDER PAIN, SENT BY MARIE History of Present Illness The patient is a 72 year old male who presents to the Emergency Room with complaints of right leg pain beginning two days ago. The patient states he has been unable to walk on his over the past two days. The patient notes swelling in his right leg. The patient has a history of breaking his right femur, a titanium yanira in his left leg, and a right hip replacement. The patient has a history of severe osteoporoses, spontaneous femur fractures, systemic mastocytosis, and spinal stenosis. The patient states he stretched a couple days ago and heard his left shoulder "pop". He states he has been unable to use his walker over the past couple days because his shoulder pain is so severe. The patient was supposed to see Dr. Leyva-Orthopedics today because he has also been having right knee pain. Dr. Leyva sent the patient to the ED because the patient was unable to get out of his car. He states it took four people to help him get out of the car upon arrival to the ED. Dr. Leyva wants the patient to get an X-ray on his leg and on his shoulder. The patient believes his leg is broken. Source of History: patient Onset: two days ago Position: leg (right) Quality: other (pain) Timing: constant Modifying Factors (Worsening): movement Modifying Factors (Relieving): other (none) Review of Systems See HPI for pertinent positives & negatives. A total of 10 systems reviewed and were otherwise negative. Past Medical & Surgical Medical Problems: (1) Anemia (2) Avascular necrosis (3) Cellulitis of left lower extremity (4) Diabetes (5) Femur fracture, left (6) HTN (hypertension) (7) Hypotension (8) Left femoral shaft fracture (9) Mastocytosis (10) Polymyalgia rheumatica (11) Right Periprosthetic femur fracture Family History Diabetes mellitus Heart disease Hypertension Stroke Social History Smoking Status: Former Smoker Alcohol Use: none Drug Use: none Marital Status: Housing Status: lives with significant other Occupation Status: employed Current/Historical Medications Scheduled Ascorbic Acid (Vitamin C), 500 MG PO BID Bupropion (Wellbutrin Sr), 150 MG PO TID Cholecalciferol (Vitamin D3), 2,000 UNITS PO DAILY Escitalopram Oxalate (Lexapro), 20 MG PO QAM Gabapentin (Gabapentin), 100 MG PO TID Lisinopril (Zestril), 10 MG PO QAM Loratadine (Claritin), 20 MG PO QAM Methadone Hcl (Dolophine), 10 MG PO TID Minocycline (Minocin), 100 MG PO BID Multiple Vitamins W/ Minerals (Centrum Silver 50+Men), 1 TAB PO DAILY Prednisone (Prednisone), 7.5 MG PO QAM Ranitidine Hcl (Zantac), 150 MG PO BID Sennosides-Docusate Sodium (Doc-Q-Lax), 3 TABS PO DAILY Tamsulosin Hcl (Flomax), 0.4 MG PO BID Allergies Coded Allergies: Ciprofloxacin (Verified Adverse Reaction, Unknown, ANKLE TENDONITIS, ) Levofloxacin (Verified Adverse Reaction, Unknown, ANKLE TENDONITIS, 04/15/17 ) Physical Exam Vital Signs Date Time Temp Pulse Resp B/P (MAP) Pulse Ox O2 Delivery O2 Flow Rate FiO2 04/15/17 13:35 78 109/68 97 Room Air 04/15/17 11:50 80 16 119/63 99 Room Air 04/15/17 10:13 74 18 123/79 97 Room Air 04/15/17 09:27 87 04/15/17 09:09 36.7 102 16 169/86 98 Room Air Physical Exam CONSTITUTIONAL/VITAL SIGNS: Reviewed / noted above. GENERAL: Non-toxic in appearance. INTEGUMENTARY: Warm, dry, and [place]. HEAD: Normocephalic. EYES: without scleral icterus or trauma. ENT/OROPHARYNX: clear and moist. LYMPHADENOPATHY/NECK: Is supple without lymphadenopathy or meningismus. RESPIRATORY: Lungs clear and equal. CARDIOVASCULAR: Regular rate and rhythm. GI/ABDOMEN: Soft and nontender. No organomegaly or pulsatile mass. No rebound or guarding. Normal bowel sounds. EXTREMITIES: Warm and well perfused. Right thigh swelling and tenderness. BACK: No CVA tenderness. NEUROLOGICAL: Intact without focal deficits. PSYCHIATRIC: normal affect. MUSCULOSKELETAL: Normally developed with good muscle tone. Medical Decision & Procedures ER Provider Diagnostic Interpretation: Radiology results as stated below per my review and radiologist interpretation: CHEST 1 VW FRONT-NOT PORTABLE COMPARISON: 07/26/2016. FINDINGS: Cardiomediastinal silhouette normal. Lungs and pleural spaces clear. Multiple old rib fractures noted bilaterally. Evidence of kyphoplasty. Upper abdomen normal. Calcification or surgical clip noted in the right axilla. IMPRESSION: 1. No acute cardiopulmonary disease. Electronically signed by: Fernando Claire M.D. RIGHT FEMUR 2 VIEWS CLINICAL HISTORY: Right leg pain. FINDINGS: AP and crosstable lateral views of the right femur are compared to study dated 07/26/2016 and intraoperative femoral radiographs dated 07/27/2016. The skeletal structures are osteopenic. A right hip arthroplasty is in near-anatomic alignment. At least 2 cortical lag screws transfix the acetabular cup. Extensive heterotopic bone formation is present around the right hip. There is chronic posttraumatic deformity in the proximal femoral shaft. There is an angulated fracture of the distal femoral shaft that is likely acute on chronic with apex volar angulation and overlying soft tissue edema. No overriding of the fragments is identified. A buttress plate is present along the majority of the femoral shaft. The fracture is located approximately 4 cm from the end of the buttress plate. The most distal cortical lag screw transfixing the buttress plate is fractured. This represent a change from intraoperative radiographs dated 07/27/2016. The knee joint is grossly intact noting arthritic change. The visualized right hemipelvis is grossly intact. There is atherosclerotic calcification of the femoral artery. IMPRESSION: 1. There is an acute on chronic fracture of the distal femoral shaft with apex volar angulation as detailed above. 2. The fracture occurs approximately 4 cm from the end of a buttress plate fixating the femur. The most inferior cortical lag screw transfixing the buttress plate is fractured. 3. Additional chronic, posttraumatic, and postoperative changes as above. 4. Soft tissue edema is noted in the distal thigh. Electronically signed by: Tushar Ugalde M.D. L SHOULDER MIN 2 VIEWS ROUTINE FINDINGS: Post traumatic deformity of the distal clavicle. The acromioclavicular joint is grossly intact. Glenohumeral joint congruent. Degenerative changes of the glenohumeral joint. No acute fracture or acute malalignment. Visualized portion of the left hemithorax demonstrates multiple old left rib fractures. IMPRESSION: 1. Post traumatic deformities of the distal clavicle and left ribs. 2. No acute osseous injury of the left shoulder. Electronically signed by: Fernando Claire M.D. Laboratory Results 04/15/17 09:20 Red Blood Count 4.09, Mean Corpuscular Volume 89.2, Mean Corpuscular Hemoglobin 30.1, Mean Corpuscular Hemoglobin Concent 33.7, Mean Platelet Volume 9.0, Neutrophils (%) (Auto) 77.3, Lymphocytes (%) (Auto) 13.4, Monocytes (%) (Auto) 8.5, Eosinophils (%) (Auto) 0.4, Basophils (%) (Auto) 0.1, Neutrophils # (Auto) 5.89, Lymphocytes # (Auto) 1.02, Monocytes # (Auto) 0.65, Eosinophils # (Auto) 0.03, Basophils # (Auto) 0.01 04/15/17 09:20 Test 04/15/17 09:20 White Blood Count 7.62 K/uL (4.8-10.8) Red Blood Count 4.09 M/uL (4.7-6.1) Hemoglobin 12.3 g/dL (14.0-18.0) Hematocrit 36.5 % (42-52) Mean Corpuscular Volume 89.2 fL (80-100) Mean Corpuscular Hemoglobin 30.1 pg (25-34) Mean Corpuscular Hemoglobin Concent 33.7 g/dl (32-36) Platelet Count 207 K/uL (130-400) Mean Platelet Volume 9.0 fL (7.4-10.4) Neutrophils (%) (Auto) 77.3 % Lymphocytes (%) (Auto) 13.4 % Monocytes (%) (Auto) 8.5 % Eosinophils (%) (Auto) 0.4 % Basophils (%) (Auto) 0.1 % Neutrophils # (Auto) 5.89 K/uL (1.4-6.5) Lymphocytes # (Auto) 1.02 K/uL (1.2-3.4) Monocytes # (Auto) 0.65 K/uL (0.11-0.59) Eosinophils # (Auto) 0.03 K/uL (0-0.5) Basophils # (Auto) 0.01 K/uL (0-0.2) RDW Standard Deviation 47.8 fL (36.4-46.3) RDW Coefficient of Variation 14.6 % (11.5-14.5) Immature Granulocyte % (Auto) 0.3 % Immature Granulocyte # (Auto) 0.02 K/uL (0.00-0.02) Prothrombin Time 11.0 SECONDS (9.0-12.0) Prothromb Time International Ratio 1.0 (0.9-1.1) Activated Partial Thromboplast Time 28.2 SECONDS (21.0-31.0) Partial Thromboplastin Ratio 1.1 Anion Gap 6.0 mmol/L (3-11) Est Creatinine Clear Calc Drug Dose 68.9 ml/min Estimated GFR () 88.0 Estimated GFR (Non- 75.9 BUN/Creatinine Ratio 13.2 (10-20) Calcium Level 9.3 mg/dl (8.5-10.1) Total Bilirubin 0.9 mg/dl (0.2-1) Direct Bilirubin 0.2 mg/dl (0-0.2) Aspartate Amino Transf (AST/SGOT) 9 U/L (15-37) Alanine Aminotransferase (ALT/SGPT) 18 U/L (12-78) Alkaline Phosphatase 142 U/L (45-117) Total Creatine Kinase 45 U/L (39-308) Creatine Kinase MB 1.1 ng/ml (0.5-3.6) Creatine Kinase MB Ratio 2.4 (0-3.0) Total Protein 8.1 gm/dl (6.4-8.2) Albumin 4.0 gm/dl (3.4-5.0) Laboratory results as stated above per my review. Medications Administered Medications (Trade) Dose Ordered Sig/Carlos A Route Start Time Stop Time Status Last Admin Dose Admin Morphine Sulfate (MoRPHine SULFATE INJ) 4 mg NOW STAT IV 04/15/17 09:27 04/15/17 09:28 DC 04/15/17 09:31 4 MG Morphine Sulfate (MoRPHine SULFATE INJ) 4 mg Q1HWA PRN IV 04/15/17 11:30 04/29/17 11:29 04/15/17 11:49 4 MG ED Course 0915: Previous medical records were reviewed. The patient was evaluated in room A12B. A complete history and physical examination was performed. 0927: Ordered Morphine Sulfate 4 mg IV. 1020: Discussed the patient's case with Dr. Leyva-Orthopedics. He said to talk to Dr. [facility]acker [facility] at [facility]. 1106: Discussed the patient's case with Dr. [facility]. He said to talk to medicine at [facility] and they will accept the patient for transfer. 1115: Discussed the patient's case with Dr. Wilson. He is accepting the patient for transfer. Medical Decision Differential diagnosis: Etiologies such as fracture, dislocation, neurovascular compromise, compartment syndrome, soft tissue injury, as well as others were entertained. This is a 72-year-old male who presents to the ED with a chief complaint of right thigh pain. The patient went to Dr. Leyva's office by private vehicle and could not get out of the car because of pain and was sent here for x-rays. Patient reportedly developed the pain over the past couple of days until swelling as well. The patient also reported hearing a pop in his left shoulder. Vital signs are stable. His physical exam reveals some swelling to the right thigh. X-ray the right femur reveals a distal femur fracture near the distal end of the hip arthroplasty yanira. X-ray of the left shoulder did not show acute traumatic injury. Chest x-ray was negative for acute disease. Blood work was unremarkable. The patient was told the results. I spoke with Dr. Leyva who recommended the patient be transferred to [facility]. The patient is agreeable to this. I spoke with Dr. Blanchard (orthopedics) and Dr. Chapa () who will admit the patient . The patient was treated with IV morphine here. He was stable. He was transported by ambulance to [facility]. Medication Reconcilliation Current Medication List: was personally reviewed by me Blood Pressure Screening Patient's blood pressure: Normal blood pressure Consults Time Called: 1018 Consulting Physician: Dr. Leyva-Orthopedics Returned Call: 1020 Discussed the patient's case. He said to talk to Dr. Packer [facility] at [facility]. Additional Consults: Time Called: 1030 Consulted Physician: Dr. [facility] Returned Call: 1106 Additional Comments: Discussed the patient's case with Dr. [facility]. He said to talk to medicine at [facility] and they will accept the patient for transfer. Time Called: 1106 Consulted Physician: Dr. Samudrela[facility] Returned Call: 1115 Additional Comments: Discussed the patient's case with Dr. Wilson. He is accepting the patient for transfer. Impression Primary Impression: Femur fracture, right Scribe Attestation The scribe's documentation has been prepared under my direction and personally reviewed by me in its entirety. I confirm that the note above accurately reflects all work, treatment, procedures, and medical decision making performed by me. Departure Information Dispostion Transfer Acute Care Facility Referrals Naveen Coreas M.D. (PCP) Patient Instructions My [facility]
--- NOTE | 2017-04-15 10:22 | DIAGNOSTIC IMAGING REPORT ---
RIGHT FEMUR 2 VIEWS CLINICAL HISTORY: Right leg pain. FINDINGS: AP and crosstable lateral views of the right femur are compared to study dated 07/26/2016 and intraoperative femoral radiographs dated 07/27/2016. The skeletal structures are osteopenic. A right hip arthroplasty is in near-anatomic alignment. At least 2 cortical lag screws transfix the acetabular cup. Extensive heterotopic bone formation is present around the right hip. There is chronic posttraumatic deformity in the proximal femoral shaft. There is an angulated fracture of the distal femoral shaft that is likely acute on chronic with apex volar angulation and overlying soft tissue edema. No overriding of the fragments is identified. A buttress plate is present along the majority of the femoral shaft. The fracture is located approximately 4 cm from the end of the buttress plate. The most distal cortical lag screw transfixing the buttress plate is fractured. This represent a change from intraoperative radiographs dated 07/27/2016. The knee joint is grossly intact noting arthritic change. The visualized right hemipelvis is grossly intact. There is atherosclerotic calcification of the femoral artery. IMPRESSION: 1. There is an acute on chronic fracture of the distal femoral shaft with apex volar angulation as detailed above. 2. The fracture occurs approximately 4 cm from the end of a buttress plate fixating the femur. The most inferior cortical lag screw transfixing the buttress plate is fractured. 3. Additional chronic, posttraumatic, and postoperative changes as above. 4. Soft tissue edema is noted in the distal thigh. Electronically signed by: Tushar Ugalde M.D. 04/15/2017 10:21 AM Dictated Date/Time: 04/15/2017 10:16 AM
[2017-04-15] MEDS ORDERED: CHOL2000 PO (10:28)
[2017-04-15] MEDS ORDERED: SENN8.6T96 PO (10:28)
[2017-04-15] MEDS ORDERED: METH5TAB PO (10:29)
--- NOTE | 2017-04-15 10:36 | DIAGNOSTIC IMAGING REPORT ---
L SHOULDER MIN 2 VIEWS ROUTINE CLINICAL HISTORY: 72 years-old Male presenting with left shoulder pain. TECHNIQUE: Internal rotation, external rotation, [place] views of the left shoulder were obtained. COMPARISON: None. FINDINGS: Post traumatic deformity of the distal clavicle. The acromioclavicular joint is grossly intact. Glenohumeral joint congruent. Degenerative changes of the glenohumeral joint. No acute fracture or acute malalignment. Visualized portion of the left hemithorax demonstrates multiple old left rib fractures. IMPRESSION: 1. Post traumatic deformities of the distal clavicle and left ribs. 2. No acute osseous injury of the left shoulder. Electronically signed by: Fernando Claire M.D. 04/15/2017 10:34 AM Dictated Date/Time: 04/15/2017 10:33 AM
--- NOTE | 2017-04-15 10:40 | DIAGNOSTIC IMAGING REPORT ---
CHEST 1 VW FRONT-NOT PORTABLE CLINICAL HISTORY: 72 years-old Male presenting with EVALUATE ALTERED MENTAL STATUS/ WEAKNESS. TECHNIQUE: Portable upright AP view of the chest was obtained. COMPARISON: 07/26/2016. FINDINGS: Cardiomediastinal silhouette normal. Lungs and pleural spaces clear. Multiple old rib fractures noted bilaterally. Evidence of kyphoplasty. Upper abdomen normal. Calcification or surgical clip noted in the right axilla. IMPRESSION: 1. No acute cardiopulmonary disease. Electronically signed by: Fernando Claire M.D. 04/15/2017 10:39 AM Dictated Date/Time: 04/15/2017 10:38 AM
[2017-04-15] MEDS: MoRPHine SULFATE 4 MG/ML 1 ML CARP\\VIAL IV PRN ×3 (11:49→17:30)
[2017-04-15 16:25] VITALS: TEMP 36.7
[2017-04-15 16:38] VITALS: BP 138/75; PULSE 71; O2SAT 100
== END 2017-04-15 17:40 | disposition short-term general hospital (02) ==
LOC: C.EDB 09:00 → C.EDA 17:40
DX: S72.491A Other fracture of lower end of right femur, initial encounter for closed fracture (principal); M25.512 Pain in left shoulder; M25.561 Pain in right knee; X50.0XXA Overexertion from strenuous movement or load, initial encounter; Y92.89 Other specified places as the place of occurrence of the external cause; I10 Essential (primary) hypertension; E11.9 Type 2 diabetes mellitus without complications; M35.3 Polymyalgia rheumatica; Z79.899 Other long term (current) drug therapy; Z87.891 Personal history of nicotine dependence; Z83.3 Family history of diabetes mellitus; Z82.49 Family history of ischemic heart disease and other diseases of the circulatory system; Z87.311 Personal history of (healed) other pathological fracture

== ENCOUNTER 2018-04-29 16:42 | Inpatient (IN) ==
[2018-04-29] MEDS ORDERED: ACETAMINOPHEN 1,000 MG/100 ML VIAL IV STA (17:16)
[2018-04-29] MEDS ORDERED: MoRPHine SULFATE 10 MG/ML CARP/VIAL IV STA (17:16)
[2018-04-29] MEDS ORDERED: SODIUM CHLORIDE 0.9% 500 ML IV SCH (17:30)
[2018-04-29] MEDS ORDERED: MoRPHine SULFATE 4 MG/ML 1 ML CARP\\VIAL ONE ×2 (17:43→21:11)
--- NOTE | 2018-04-29 17:53 | XRay Report ---
XR chest 1V portable CLINICAL HISTORY: Trauma. Pain. COMPARISON STUDY: 04/15/2017 FINDINGS: The heart is mildly enlarged. There is aortic tortuosity. There are old bilateral rib fract ures. There is a left scapular sclerosis likely secondary to an old healing fracture. There is an old left clavicular fracture. There is no lobar consolidation. There is slight elevation of the intersti tium. An element of mild pulmonary vascular congestion cannot be excluded. There are no large pleural effusions[ IMPRESSION: 1. Old bilateral rib fractures. Old left clavicular fracture. Left scapular sclerosis, possibly relat ed to an old fracture 2. No evidence of lobar consolidation 3. Mild interstitial prominence. An element of mild pulmonary vascular congestion cannot be excluded Electronically signed by: Basim Sofia M.D. 04/29/2018 5:51 PM
--- NOTE | 2018-04-29 17:59 | XRay Report ---
XR femur LT 2V routine, XR hip LT 2-3V w pelvis, XR knee LT 3V, XR tibia fibula LT 2V CLINICAL HISTORY: Left lower extremity pain. Fall. COMPARISON STUDY: Left hip, femur, knee 10/03/2017. FINDINGS: There is a right total arthroplasty with a right femoral cortical plate and screws. There i s a left femoral intramedullary yanira with an interlocking femoral neck pin. The hardware appears intac t. No acute fracture or dislocation within the pelvis or hips. Healing/healed left acetabular fractur e demonstrating a protrusio deformity. Old, healed fractures within the fluid bones and proximal femu rs. Extensive heterotopic ossification within the bilateral hips persists. Soft tissue swelling withi n the left lateral hip. Vertebroplasty within the lower lumbar spine. The bones are osteopenic. Sever e osteoarthritis within the left knee with chondrocalcinosis. No fracture or dislocation within the l eft knee. Moderate left knee effusion. There is no acute transverse fracture within the proximal shaf t of the left tibia. This demonstrates mild lateral angulation. There is also a transverse fracture t o the midshaft of the left fibula which appears to demonstrate surrounding callus formation consisten t with a healing fracture. IMPRESSION: 1. Acute transverse fracture within the proximal shaft of the left tibia demonstrating mild angulatio n. 2. Healing transverse fracture within the mid shaft of the left fibula. 3. Old posttraumatic and postoperative changes within the pelvis/hips. 4. Moderate left knee effusion. No fractures within the left knee. Electronically signed by: Mayank Cagle M.D. 04/29/2018 5:58 PM
[2018-04-29 18:02] LABS: Eosinophils # (auto) 0.01 K/uL (0-0.5); Eosinophils % (auto) 0.2 %; Hematocrit (blood only) 30.1 % (42-52); Hemoglobin 9.9 g/dL (14.0-18.0); Immature Granulocytes # (auto) 0.01 K/uL (0.00-0.02); Immature Granulocytes % (auto) 0.2 %; Lymphocytes # (auto) 0.76 K/uL (1.2-3.4); Lymphocytes % (auto) 18.8 %; Mean Corpuscular Hgb Conc 32.9 g/dL (32-36); Mean Corpuscular Volume 89.1 fL (80-100); Mean Platelet Volume 8.5 fL (7.4-10.4); Monocytes # (auto) 0.67 K/uL (0.11-0.59); Monocytes % (auto) 16.6 %; Neutrophils # (auto) 2.59 K/uL (1.4-6.5); Neutrophils % (auto) 64.2 %; Platelet Count 167 K/uL (130-400); RDW Coefficient of Variation 14.3 % (11.5-14.5); RDW Standard Deviation 46.9 fL (36.4-46.3); Red Blood Count 3.38 M/uL (4.7-6.1); White Blood Count 4.04 K/uL (4.8-10.8)
[2018-04-29 18:21] LABS: Albumin Level 3.1 gm/dl (3.4-5.0); BUN Creatinine Ratio 18.5 (10-20); Est GFR (African American) 97.9; Est GFR (Non-African American) 84.5; INR 1.1 (0.9-1.1); Potassium 4.3 mmol/L (3.5-5.1); Prothrombin Time 11.1 Seconds (9.0-12.0)
[2018-04-29 18:24] LABS: Albumin Globulin Ratio 0.6 (0.9-2); Bilirubin,Total 0.4 mg/dl (0.2-1); Globulin 4.8 gm/dl (2.5-4.0); Total Protein 7.9 gm/dl (6.4-8.2)
[2018-04-29 18:55] LABS: Appearance Urine Clear (Clear); Bilirubin Urine Negative (Negative); Color Urine Yellow; Glucose Urine UA Negative (Negative); Ketones Urine Negative (Negative); Leukocyte Esterase Urine Negative (Negative); Nitrite Urine Negative (Negative); Protein Urine Negative (Negative); Specific Gravity Urine 1.011 (1.000-1.030); Urobilinogen Urine Negative (Negative); pH Urine 6.5 (4.5-7.5)
--- NOTE | 2018-04-29 20:24 | History & Physical Report ---
Date of Service April 29, 2018 Assessment & Plan (1) Fracture of tibia, left, closed: Hx L fibula fracture 5-6 weeks ago, following with Dr Leyva. In walking boot. Today standing and twisted and felt snapping of LLE then causing fall. In ER xrays L tib/fib, L knee, L femur, hip/pelvis and was found to have: 1.Acute transverse fracture within the proximal shaft of the left tibia demonstrating mild angulation. 2. Healing transverse fracture within the mid shaft of the left fibula. 3. Old posttraumatic and postoperative changes within the pelvis/hips. 4. Moderate left knee effusion. No fractures within the left knee. -In ER was given Tylenol IV, morphine, 500ml NSS. -no weight bearing to left leg -continue chronic pain methadone -morphine for breakthrough pain -ortho consult. ER contacted telephone quotation clerk -npo after midnight in case of procedure (2) Polymyalgia rheumatica: On chronic prednisone 7.5mg daily. 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 Now diet controlled. Random glucose: 136 -A1c in am (8) Anemia: Chronic anemia. Was on iron supplements in past, however not currently taking Hgb: 9.9. Baseline Hgb 7-9. -monitor H&H (9) Bipolar disorder: (10) Depression: -continue wellbutrin, lexapro (11) BPH (benign prostatic hyperplasia): (12) NOLBERTO (obstructive sleep apnea): (13) Avascular necrosis: Hx avascular necrosis R hip. Had arthroplasty with post op complication of infection. On chronic doxycycline -continue doxycycline DVT Prophylaxis -SCDs Full Code as per discussion with pt Follows with Dr Bruce -[facility] in [place] for routine care Pt was seen with Dr Harris. See addendum History of Present Illness Chief Complaint: L leg pain Primary Care Provider: Gerson Bruce MD Pt is 73 y/o M with PMH HTN, diet controlled DM II, BPH, PMR on chronic prednisone, osteoporosis, neuropathy, sleep apnea, bipolar, depression, mastocytosis, h/o recurrent fractures presented to ER with c/o L leg pain. Pt reports pathological fracture to L fibula 5-6 weeks ago. He has been following with Dr Gordon ramirez and saw yesterday. Pt states was able to start weight bearing with walking boot and today was standing and reached up to cabinet when felt snapping sensation to left lower leg causing him to fall backward hitting the refrigerator. Denies LOC, WAN, dizziness, CP, SOB, neck pain. C/O L lower leg pain. Denies other extremity pain. Has chronic neuropathy BLE and denies any increased paresthesias/numbness since fall. Hx chronic skin discoloration to BLE from minocycline. Hx bilateral femur fractures, verterbral compression fractures, rib fractures. H/O avascular necrosis R hip, had arthroplasty and reported developed sepsis. Is on doxycyline chronically. Denies fever/chills, diaphoresis, N/V/D/C, WAN, syncope, vision changes, CP, SOB, orthopnea, palpitations, cough, sore throat, choking, otalgia, rhinorrhea, abdominal pain, extremity edema, rashes, urinary symptoms. Allergies Allergy/AdvReac Type Severity Reaction Status Date / Time minocycline AdvReac Severe "STAINING Verified 04/29/18 18:10 OF SKIN PIGMENT TO BLACK" Cipro AdvReac Unknown ANKLE Verified 10/03/17 17:39 TENDONITIS ciprofloxacin AdvReac Unknown ANKLE Verified 04/29/18 18:10 TENDONITIS levofloxacin AdvReac Unknown ANKLE Verified 04/29/18 18:10 TENDONITIS Home Medications Home Medications Medication Instructions Recorded Confirmed Type bupropion HCl 150 mg PO TID 04/29/18 04/29/18 History carisoprodol [Soma] 350 mg PO QID PRN 04/29/18 04/29/18 History cholecalciferol (vitamin D3) 2 cap PO DAILY 04/29/18 04/29/18 History [Vitamin D3] docusate sodium 100 mg PO BID 04/29/18 04/29/18 History doxycycline hyclate 100 mg PO QAM 04/29/18 04/29/18 History escitalopram oxalate 20 mg PO QAM 04/29/18 04/29/18 History gabapentin 200 mg PO QAM 04/29/18 04/29/18 History gabapentin 300 mg PO HS 04/29/18 04/29/18 History leflunomide 10 mg PO QAM 04/29/18 04/29/18 History lisinopril 10 mg PO QAM 04/29/18 04/29/18 History loratadine [Claritin] 20 mg PO QAM 04/29/18 04/29/18 History methadone 10 mg PO TID 04/29/18 04/29/18 History naproxen sodium 660 mg PO UD 04/29/18 04/29/18 History prednisone 7.5 mg PO QAM 04/29/18 04/29/18 History ranitidine HCl 150 mg PO BID 04/29/18 04/29/18 History sennosides [senna] 3 tab PO DAILY PRN 04/29/18 04/29/18 History tamsulosin 0.4 mg PO BID 04/29/18 04/29/18 History teriparatide [Forteo] 20 mcg SUBCUT QAM 04/29/18 04/29/18 History Past Med/Surg History Medical History History of femur fracture (Resolved) Colovesical fistula (Chronic) Giant cell arteritis (Resolved) Depression (Chronic) Bipolar disorder (Chronic) Osteoporosis (Chronic) NOLBERTO (obstructive sleep apnea) (Chronic) BPH (benign prostatic hyperplasia) (Chronic) HTN (hypertension) (Chronic) Diabetes (Chronic) Avascular necrosis (Chronic) Polymyalgia rheumatica (Chronic) Anemia (Chronic) Femur fracture, left (Resolved) Mastocytosis (Chronic) Surgical History History of tonsillectomy and adenoidectomy (Resolved) History of arthroplasty of right hip (Resolved) Family History Other Diabetes HTN (hypertension) Social History Feels Safe at Home: Yes Smoking Status: Former smoker Cigarettes per Day: Quit 2012 Hx Alcohol Use: Yes (Former. Quit in 2003) Hx Substance Use: No Review of Systems All systems reviewed & are unremarkable except as noted in HPI & below Physical Exam 2 Vital Signs (Past 24 Hours): Last Vital Signs Temp 37.3 C 04/29/18 16:52 Pulse 76 04/29/18 20:19 Resp 18 04/29/18 20:19 BP 106/68 04/29/18 20:19 Pulse Ox 98 04/29/18 20:19 Physical Exam: General: no apparent distress at this time, obese Head: normocephalic, atraumatic Eyes: PERRL, EOM's intact, conjunctiva non-injected, anicteric ENT: normal inspection external ears, nose, mucous membranes moist Neck: supple, trachea midline, non-tender Lungs: clear, diminished, no respiratory distress CV: RRR, no murmur, no pretibial edema Abd: normal BS, soft, non-tender Ext: LLE: hip non-tender to palpation, knee with edema & mild tenderness to palpation, lower leg with diffuse tenderness to palpation, no ROM attempted, distal pulses intact, brisk capillary refill. RLE: non-tender, ROM intact. BUE with ROM intact, non-tender Neuro: A&O x 3, no focal deficits noted, normal affect Skin: warm, dry, bilateral lower legs with blackish color skin discoloration. Right 2nd, 3rd toes with abrasions Results & Data Laboratory Results Short CBC 04/29/18 Range/Units 17:46 WBC 4.04 L (4.8-10.8) K/uL Hgb 9.9 L (14.0-18.0) g/dL Hct 30.1 L (42-52) % Plt Count 167 (130-400) K/uL BMP 04/29/18 17:46 Sodium 134 L Potassium 4.3 Chloride 102 Carbon Dioxide 26 BUN 17 Creatinine 0.91 Glucose 136 H Calcium 9.0 Liver Function 04/29/18 Range/Units 17:46 Total Bilirubin 0.4 (0.2-1) mg/dl AST 9 L (15-37) U/L ALT 11 L (12-78) U/L Alkaline Phosphatase 113 (45-117) U/L Albumin 3.1 L (3.4-5.0) gm/dl Urine 04/29/18 Range/Units 18:31 Urine Color Yellow Urine Appearance Clear (Clear) Urine pH 6.5 (4.5-7.5) Ur Specific [place] 1.011 (1.000-1.030) Urine Protein Negative (Negative) Urine Glucose (UA) Negative (Negative) Diagnostic Findings L TIBIA/FIBULA XRAY: L KNEE XRAY: HIP/PELVIS XRAY: FEMUR XRAY: IMPRESSION: 1. Acute transverse fracture within the proximal shaft of the left tibia demonstrating mild angulation. 2. Healing transverse fracture within the mid shaft of the left fibula. 3. Old posttraumatic and postoperative changes within the pelvis/hips. 4. Moderate left knee effusion. No fractures within the left knee. CXR: IMPRESSION: 1. Old bilateral rib fractures. Old left clavicular fracture. Left scapular sclerosis, possibly related to an old fracture 2. No evidence of lobar consolidation 3. Mild interstitial prominence. An element of mild pulmonary vascular congestion cannot be excluded Supervising Physician Co-Signing Physician Notes Pt was seen and examined. Agreed with Mae CARTER exam, assessment and plan. 73 y /o M with PMH HTN, diet controlled DM II, BPH, PMR on chronic prednisone, osteoporosis, neuropathy, sleep apnea, bipolar, depression, mastocytosis, h/o recurrent fractures presented to ER with c/o L leg pain. Tibia/Fibula xray showed Acute transverse fracture within the proximal shaft of the left tibia demonstrating mild angulation. Continue Pain management. Ortho consult. Will keep NPO after midnight. DVP px with SCD for now. Will need to start on heparin subq for DVT px after surgery (or if surgery pending). MD Kimberly
[2018-04-29] MEDS ORDERED: POLYETHYLENE (MIRALAX) 17 GM PACK PO PRN (22:35)
[2018-04-29] MEDS ORDERED: ONDANSETRON INJ 2 MG/ML 2 ML VIAL IV PRN (22:35)
[2018-04-29] MEDS ORDERED: ACETAMINOPHEN 325 MG TAB PO PRN (22:35)
[2018-04-29] MEDS: MoRPHine SULFATE 4 MG/ML 1 ML CARP\\VIAL IV PRN (23:05)
[2018-04-29] MEDS: TAMSULOSIN HCL 0.4 MG CAP PO SCH (23:36)
[2018-04-29] MEDS: BuPROPion XL 150 MG TABCR PO SCH (23:36)
[2018-04-29] MEDS: GABAPENTIN 100 MG CAP PO SCH (23:37)
[2018-04-29] MEDS: DOCUSATE SODIUM 100 MG CAP PO SCH (23:38)
[2018-04-29] MEDS: METHADONE HCL 10 MG TAB PO SCH (23:44)
--- NOTE | 2018-04-30 00:50 | Emergency Department Note ---
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 The patient states he went to Dr. Leyva about 6 weeks ago and was diagnosed with a fibular stress fracture. He states he was given a walking boot and was told to not walk that much. He notes he had a follow-up appointment with Dr. Leyva yesterday and Dr. Leyva noted the fracture was not healing properly, but the plan was going to remain the same. The patient notes he twisted his leg in a weird way today and he heard a snap noise. He states he felt like he fractured his tibia. He states he fell and his head bounced off the fridge and hit the floor. He states he does not have a headache, soreness, or bumps on his head. The patient notes he has pressure in his chest. He denies syncope, fevers, chills, cough, congestion , nausea, vomiting, and taking any blood thinners. He notes he has osteoporosis and pathologic fractures in both legs. Home Medications Home Medications Medication Instructions Recorded Confirmed Type bupropion HCl 150 mg PO TID 04/29/18 04/29/18 History carisoprodol [Soma] 350 mg PO QID PRN 04/29/18 04/29/18 History cholecalciferol (vitamin D3) 2 cap PO DAILY 04/29/18 04/29/18 History [Vitamin D3] docusate sodium 100 mg PO BID 04/29/18 04/29/18 History doxycycline hyclate 100 mg PO QAM 04/29/18 04/29/18 History escitalopram oxalate 20 mg PO QAM 04/29/18 04/29/18 History gabapentin 200 mg PO QAM 04/29/18 04/29/18 History gabapentin 300 mg PO HS 04/29/18 04/29/18 History leflunomide 10 mg PO QAM 04/29/18 04/29/18 History lisinopril 10 mg PO QAM 04/29/18 04/29/18 History loratadine [Claritin] 20 mg PO QAM 04/29/18 04/29/18 History methadone 10 mg PO TID 04/29/18 04/29/18 History naproxen sodium 660 mg PO UD 04/29/18 04/29/18 History prednisone 7.5 mg PO QAM 04/29/18 04/29/18 History ranitidine HCl 150 mg PO BID 04/29/18 04/29/18 History sennosides [senna] 3 tab PO DAILY PRN 04/29/18 04/29/18 History tamsulosin 0.4 mg PO BID 04/29/18 04/29/18 History teriparatide [Forteo] 20 mcg SUBCUT QAM 04/29/18 04/29/18 History Allergies Allergy/AdvReac Type Severity Reaction Status Date / Time minocycline AdvReac Severe "STAINING Verified 04/29/18 18:10 OF SKIN PIGMENT TO BLACK" Cipro AdvReac Unknown ANKLE Verified 10/03/17 17:39 TENDONITIS ciprofloxacin AdvReac Unknown ANKLE Verified 04/29/18 18:10 TENDONITIS levofloxacin AdvReac Unknown ANKLE Verified 04/29/18 18:10 TENDONITIS Past Med/Surg History Medical History History of femur fracture (Resolved) Colovesical fistula (Chronic) Giant cell arteritis (Resolved) Depression (Chronic) Bipolar disorder (Chronic) Osteoporosis (Chronic) NOLBERTO (obstructive sleep apnea) (Chronic) BPH (benign prostatic hyperplasia) (Chronic) HTN (hypertension) (Chronic) Diabetes (Chronic) Avascular necrosis (Chronic) Polymyalgia rheumatica (Chronic) Anemia (Chronic) Femur fracture, left (Resolved) Mastocytosis (Chronic) Chronic narcotic use Chronic steroid use Surgical History History of tonsillectomy and adenoidectomy (Resolved) History of arthroplasty of right hip (Resolved) Family History Other Diabetes HTN (hypertension) Social History marital status: Current Living Situation: Spouse Other Information That Helps Us Care for You: No Feels Safe at Home: Yes Safety Concerns: Feels Safe At This Time Smoking Status: Former smoker Tobacco Type: cigarettes Cigarettes per Day: Quit 2012 Smoking End Date: 2012 Hx Alcohol Use: No Hx Substance Use: No Beliefs That Will Affect Care: None Communication Ability: Effective Review of Systems See HPI for pertinent positives & negatives. and A total of 10 systems reviewed and were otherwise negative Physical Exam Vital Signs Vital Signs - 24 hr 04/29/18 22:35 04/29/18 22:38 04/29/18 23:52 Temperature 36.8 C 36.8 C Temperature Source Oral Oral Pulse Rate Pulse Rate [Right Finger] 67 67 Pulse Rhythm [Right Finger] Regular Pulse Strength [Right Finger] Normal Respiratory Rate 20 18 Respiratory Effort / Characteristics Non-Labored Spontaneous Respiratory Depth Normal Normal Respiratory Pattern Regular Regular Blood Pressure [Right Arm] 115/66 115/66 Blood Pressure Mean [Right Arm] 82 82 Blood Pressure Position [Right Arm] Lying Lying Pulse Oximetry 96 96 Oxygen Delivery Method Room Air Room Air CPAP 04/29/18 23:58 04/30/18 07:45 04/30/18 11:00 Temperature 37.1 C 36.8 C Temperature Source Oral Oral Pulse Rate 80 Pulse Rate [Right Finger] 82 87 Pulse Rhythm [Right Finger] Pulse Strength [Right Finger] Respiratory Rate 18 16 16 Respiratory Effort / Characteristics Non-Labored Spontaneous Respiratory Depth Normal Respiratory Pattern Regular Blood Pressure [Right Arm] 124/71 111/68 Blood Pressure Mean [Right Arm] 88 82 Blood Pressure Position [Right Arm] Lying Lying Pulse Oximetry 98 96 95 Oxygen Delivery Method 04/30/18 15:00 Temperature 36.8 C Temperature Source Oral Pulse Rate Pulse Rate [Right Finger] 75 Pulse Rhythm [Right Finger] Pulse Strength [Right Finger] Respiratory Rate 17 Respiratory Effort / Characteristics Respiratory Depth Normal Respiratory Pattern Blood Pressure [Right Arm] 126/72 Blood Pressure Mean [Right Arm] 90 Blood Pressure Position [Right Arm] Lying Pulse Oximetry 96 Oxygen Delivery Method Room Air GENERAL: Awake, alert, uncomfortable-appearing, in no distress HENT: Normocephalic, atraumatic. Oropharynx unremarkable. EYES: Normal conjunctiva. Sclera non-icteric. NECK: Supple. No nuchal rigidity. FROM. No JVD. RESPIRATORY: Clear to auscultation. CARDIAC: Regular rate, normal rhythm. Extremities warm and well perfused. Pulses equal. ABDOMEN: Soft, non-distended. No tenderness to palpation. No rebound or guarding. No masses. RECTAL: Deferred. MUSCULOSKELETAL: Chest examination reveals no tenderness. The back is symmetrical on inspection without obvious abnormality. There is no CVA tenderness to palpation. No joint edema. LOWER EXTREMITIES: Calves are equal size bilaterally and non-tender. No edema. No discoloration. Tenderness to mid left lower leg with bony crepitus. Distal PMS intact. NEURO: Normal sensorium. No sensory or motor deficits noted. SKIN: No rash or jaundice noted. Course 1704: Past medical records reviewed. The patient was evaluated in room B5, and a complete history and physical examination were performed. 1854: I reviewed the patient's case with Dr. Martinez - Orthopedics physician. He agrees the patient should be admitted for pain control. He states the patient should get reassessed in the morning given his comorbidities. 1901: I reviewed the patient's case with Mae Huffman PA-C. She will evaluate the patient for further management. Administered Medications Bupropion HCl (Wellbutrin-Xl) 150 mg PO TID [facility] Stop: 05/29/18 22:59 Last Admin: 04/30/18 20:48 Dose: 150 mg Admin: 04/30/18 13:44 Dose: 150 mg Admin: 04/30/18 10:22 Dose: 150 mg Admin: 04/29/18 23:36 Dose: 150 mg Docusate Sodium (Colace) 100 mg PO BID [facility] Stop: 05/29/18 22:34 Last Admin: 04/30/18 20:25 Dose: 100 mg Admin: 04/30/18 10:25 Dose: 100 mg Admin: 04/29/18 23:38 Dose: Not Given Doxycycline Hyclate (Vibramycin) 100 mg PO QAM [facility] Stop: 05/30/18 08:59 Last Admin: 04/30/18 10:23 Dose: 100 mg Escitalopram Oxalate (Lexapro) 20 mg PO QAM [facility] Stop: 05/30/18 08:59 Last Admin: 04/30/18 10:23 Dose: 20 mg Gabapentin (Neurontin) 200 mg PO QAM [facility] Stop: 05/30/18 08:59 Last Admin: 04/30/18 10:26 Dose: 200 mg Gabapentin (Neurontin) 300 mg PO HS [facility] Stop: 05/29/18 22:59 Last Admin: 04/30/18 20:25 Dose: 300 mg Admin: 04/29/18 23:37 Dose: 300 mg Hydromorphone HCl (Dilaudid) 0.5 mg IV Q2H PRN PRN Reason: Pain Stop: 05/14/18 08:06 Last Admin: 04/30/18 17:38 Dose: 0.5 mg Admin: 04/30/18 13:49 Dose: 0.5 mg Admin: 04/30/18 10:17 Dose: 0.5 mg Leflunomide (Arava) 10 mg PO QAM [facility] Stop: 05/30/18 08:59 Last Admin: 04/30/18 10:23 Dose: 10 mg [facility]atadine ([facility]) [facility] [place]: 05/30/18 08:59 Last Admin: 04/30/18 10:24 Dose: 20 mg Methadone HCl (Dolophine) 10 mg PO TID [facility] Stop: 05/13/18 22:59 Last Admin: 04/30/18 20:48 Dose: 10 mg Admin: 04/30/18 13:55 Dose: 10 mg Admin: 04/30/18 10:21 Dose: 10 mg Admin: 04/29/18 23:44 Dose: 10 mg Prednisone (Prednisone) 7.5 [facility] [place] Stop: 05/30/18 08:59 Last Admin: 04/30/18 10:24 Dose: 7.5 mg Ranitidine HCl (Zantac) 150 mg PO BID [facility] Stop: 05/29/18 22:59 Last Admin: 04/30/18 20:25 Dose: 150 mg Admin: 04/30/18 10:22 Dose: 150 mg Admin: 04/29/18 23:36 Dose: 150 mg Tamsulosin HCl (Flomax) 0.4 mg PO BID [facility] Stop: 05/29/18 22:59 Last Admin: 04/30/18 20:25 Dose: 0.4 mg Admin: 04/30/18 10:25 Dose: 0.4 mg Admin: 04/29/18 23:36 Dose: 0.4 mg Teriparatide Acetate (Forteo) 1 ea SQ Q24H [facility] Stop: 05/30/18 19:29 Last Admin: 04/30/18 20:49 Dose: 1 ea Vitamin D (Vitamin D3) 2,000 units PO DAILY [facility] Stop: 05/30/18 08:59 Last Admin: 04/30/18 10:23 Dose: 2,000 units Discontinued Medications Acetaminophen (Ofirmev) 1,000 mg in 100 mls @ 400 mls/hr IV NOW STA Stop: 04/29/18 17:30 Last Infusion: 04/29/18 18:53 Dose: 0 mls/hr Admin: 04/29/18 17:53 Dose: 400 mls/hr Sodium Chloride (Nss) 500 mls @ 999 mls/hr IV .Q31M [facility] Stop: 04/29/18 18:00 Last Infusion: 04/29/18 18:30 Dose: 0 mls/hr Admin: 04/29/18 17:53 Dose: 999 mls/hr Miscellaneous (Order Awaiting Action) 1 ea N/A QS [facility] Stop: 05/30/18 00:00 Last Admin: 04/30/18 15:38 Dose: Not Given Admin: 04/30/18 10:31 Dose: Not Given Admin: 04/29/18 23:49 Dose: Not Given Morphine Sulfate (Morphine Sulfate) 8 mg IV NOW STA Stop: 04/29/18 17:17 Last Admin: 04/29/18 17:53 Dose: 8 mg Morphine Sulfate (Morphine Sulfate) Confirm Administered Dose 8 mg .ROUTE .STK- MED ONE Stop: 04/29/18 17:44 Last Admin: 04/29/18 17:54 Dose: Not Given Morphine Sulfate (Morphine Sulfate) Confirm Administered Dose 4 mg .ROUTE .STK- MED ONE Stop: 04/29/18 21:12 Last Admin: 04/29/18 21:18 Dose: 4 mg Morphine Sulfate (Morphine Sulfate) 4 mg IV Q4H PRN PRN Reason: Pain Stop: 05/13/18 22:34 Last Admin: 04/30/18 07:57 Dose: 4 mg Admin: 04/30/18 04:28 Dose: 4 mg Admin: 04/29/18 23:05 Dose: 4 mg Medical Decision Making Differential Diagnosis Differential diagnosis: Etiologies such as fracture, dislocation, neurovascular compromise, compartment syndrome, soft tissue injury, as well as others were entertained. Medical Records Attestation: I reviewed the patient's medical records. Home Medications Current Medication List: was personally reviewed by me Laboratory Data Attestation: I reviewed the patient's lab results. Result diagrams: 04/30/18 07:04 04/30/18 07:04 Lab Results 04/29/18 04/29/18 04/29/18 Range/Units 17:46 17:46 17:46 WBC 4.04 L (4.8-10.8) K/uL RBC 3.38 L (4.7-6.1) M/uL Hgb 9.9 L (14.0-18.0) g/dL Hct 30.1 L (42-52) % MCV 89.1 (80-100) fL MCH 29.3 (25-34) pg MCHC 32.9 (32-36) g/dL RDW Std Deviation 46.9 H (36.4-46.3) fL RDW Coeff of Samara 14.3 (11.5-14.5) % Plt Count 167 (130-400) K/uL MPV 8.5 (7.4-10.4) fL Immature Gran % (Auto) 0.2 % Neut % (Auto) 64.2 % Lymph % (Auto) 18.8 % Carlton % (Auto) 16.6 % Eos % (Auto) 0.2 % Baso % (Auto) 0.0 % Immature Gran # (Auto) 0.01 (0.00-0.02) K/uL Neut # (Auto) 2.59 (1.4-6.5) K/uL Lymph # (Auto) 0.76 L (1.2-3.4) K/uL Carlton # (Auto) 0.67 H (0.11-0.59) K/uL Eos # (Auto) 0.01 (0-0.5) K/uL Baso # (Auto) 0.00 (0-0.2) K/uL PT 11.1 (9.0-12.0) Seconds INR 1.1 (0.9-1.1) Sodium 134 L (136-145) mmol/L Potassium 4.3 (3.5-5.1) mmol/L Chloride 102 (98-107) mmol/L Carbon Dioxide 26 (21-32) mmol/L Anion Gap 6.0 (3-11) BUN 17 (7-18) mg/dl Creatinine 0.91 (0.6-1.4) mg/dl Est Cr Clr Drug Dosing 78.0 ml/min Est GFR ( Amer) 97.9 Est GFR (Non-Af Amer) 84.5 BUN/Creatinine Ratio 18.5 (10-20) Glucose 136 H (70-99) mg/dl POC Glucose (70-99) Estimat Average Glucose mg/dl Hemoglobin A1c (4.5-5.6) % Calcium 9.0 (8.5-10.1) mg/dl Total Bilirubin 0.4 (0.2-1) mg/dl AST 9 L (15-37) U/L ALT 11 L (12-78) U/L Alkaline Phosphatase 113 (45-117) U/L Total Protein 7.9 (6.4-8.2) gm/dl Albumin 3.1 L (3.4-5.0) gm/dl Globulin 4.8 H (2.5-4.0) gm/dl Albumin/Globulin Ratio 0.6 L (0.9-2) Urine Color Urine Appearance (Clear) Urine pH (4.5-7.5) Ur Specific [place] (1.000-1.030) Urine Protein (Negative) Urine Glucose (UA) (Negative) Urine Ketones (Negative) Urine Blood (Negative) Urine Nitrite (Negative) Urine Bilirubin (Negative) Urine Urobilinogen (Negative) Ur Leukocyte Esterase (Negative) Blood Type Antibody Screen 04/29/18 04/29/18 04/30/18 Range/Units 18:31 22:32 07:04 WBC 3.10 L (4.8-10.8) K/uL RBC 3.27 L (4.7-6.1) M/uL Hgb 9.5 L (14.0-18.0) g/dL Hct 29.4 L (42-52) % MCV 89.9 (80-100) fL MCH 29.1 (25-34) pg MCHC 32.3 (32-36) g/dL RDW Std Deviation 47.6 H (36.4-46.3) fL RDW Coeff of Samara 14.5 (11.5-14.5) % Plt Count 175 (130-400) K/uL MPV 8.7 (7.4-10.4) fL Immature Gran % (Auto) % Neut % (Auto) % Lymph % (Auto) % Carlton % (Auto) % Eos % (Auto) % Baso % (Auto) % Immature Gran # (Auto) (0.00-0.02) K/uL Neut # (Auto) (1.4-6.5) K/uL Lymph # (Auto) (1.2-3.4) K/uL Carlton # (Auto) (0.11-0.59) K/uL Eos # (Auto) (0-0.5) K/uL Baso # (Auto) (0-0.2) K/uL PT (9.0-12.0) Seconds INR (0.9-1.1) Sodium (136-145) mmol/L Potassium (3.5-5.1) mmol/L Chloride (98-107) mmol/L Carbon Dioxide (21-32) mmol/L Anion Gap (3-11) BUN (7-18) mg/dl Creatinine (0.6-1.4) mg/dl Est Cr Clr Drug Dosing ml/min Est GFR ( Amer) Est GFR (Non-Af Amer) BUN/Creatinine Ratio (10-20) Glucose (70-99) mg/dl POC Glucose 82 (70-99) Estimat Average Glucose mg/dl Hemoglobin A1c (4.5-5.6) % Calcium (8.5-10.1) mg/dl Total Bilirubin (0.2-1) mg/dl AST (15-37) U/L ALT (12-78) U/L Alkaline Phosphatase (45-117) U/L Total Protein (6.4-8.2) gm/dl Albumin (3.4-5.0) gm/dl Globulin (2.5-4.0) gm/dl Albumin/Globulin Ratio (0.9-2) Urine Color Yellow Urine Appearance Clear (Clear) Urine pH 6.5 (4.5-7.5) Ur Specific [place] 1.011 (1.000-1.030) Urine Protein Negative (Negative) Urine Glucose (UA) Negative (Negative) Urine Ketones Negative (Negative) Urine Blood Negative (Negative) Urine Nitrite Negative (Negative) Urine Bilirubin Negative (Negative) Urine Urobilinogen Negative (Negative) Ur Leukocyte Esterase Negative (Negative) Blood Type Antibody Screen 04/30/18 04/30/18 04/30/18 Range/Units 07:04 07:04 08:14 WBC (4.8-10.8) K/uL RBC (4.7-6.1) M/uL Hgb (14.0-18.0) g/dL Hct (42-52) % MCV (80-100) fL MCH (25-34) pg MCHC (32-36) g/dL RDW Std Deviation (36.4-46.3) fL RDW Coeff of Samara (11.5-14.5) % Plt Count (130-400) K/uL MPV (7.4-10.4) fL Immature Gran % (Auto) % Neut % (Auto) % Lymph % (Auto) % Carlton % (Auto) % Eos % (Auto) % Baso % (Auto) % Immature Gran # (Auto) (0.00-0.02) K/uL Neut # (Auto) (1.4-6.5) K/uL Lymph # (Auto) (1.2-3.4) K/uL Carlton # (Auto) (0.11-0.59) K/uL Eos # (Auto) (0-0.5) K/uL Baso # (Auto) (0-0.2) K/uL PT (9.0-12.0) Seconds INR (0.9-1.1) Sodium 138 (136-145) mmol/L Potassium 4.0 (3.5-5.1) mmol/L Chloride 103 (98-107) mmol/L Carbon Dioxide 30 (21-32) mmol/L Anion Gap 5.0 (3-11) BUN 14 (7-18) mg/dl Creatinine 0.75 (0.6-1.4) mg/dl Est Cr Clr Drug Dosing 94.6 ml/min Est GFR ( Amer) 107.0 Est GFR (Non-Af Amer) 92.3 BUN/Creatinine Ratio 18.4 (10-20) Glucose 86 (70-99) mg/dl POC Glucose (70-99) Estimat Average Glucose 117 mg/dl Hemoglobin A1c 5.7 H (4.5-5.6) % Calcium 8.5 (8.5-10.1) mg/dl Total Bilirubin (0.2-1) mg/dl AST (15-37) U/L ALT (12-78) U/L Alkaline Phosphatase (45-117) U/L Total Protein (6.4-8.2) gm/dl Albumin (3.4-5.0) gm/dl Globulin (2.5-4.0) gm/dl Albumin/Globulin Ratio (0.9-2) Urine Color Urine Appearance (Clear) Urine pH (4.5-7.5) Ur Specific [place] (1.000-1.030) Urine Protein (Negative) Urine Glucose (UA) (Negative) Urine Ketones (Negative) Urine Blood (Negative) Urine Nitrite (Negative) Urine Bilirubin (Negative) Urine Urobilinogen (Negative) Ur Leukocyte Esterase (Negative) Blood Type O Positive Antibody Screen NEGATIVE 04/30/18 04/30/18 Range/Units 08:14 12:02 WBC (4.8-10.8) K/uL RBC (4.7-6.1) M/uL Hgb (14.0-18.0) g/dL Hct (42-52) % MCV (80-100) fL MCH (25-34) pg MCHC (32-36) g/dL RDW Std Deviation (36.4-46.3) fL RDW Coeff of Samara (11.5-14.5) % Plt Count (130-400) K/uL MPV (7.4-10.4) fL Immature Gran % (Auto) % Neut % (Auto) % Lymph % (Auto) % Carlton % (Auto) % Eos % (Auto) % Baso % (Auto) % Immature Gran # (Auto) (0.00-0.02) K/uL Neut # (Auto) (1.4-6.5) K/uL Lymph # (Auto) (1.2-3.4) K/uL Carlton # (Auto) (0.11-0.59) K/uL Eos # (Auto) (0-0.5) K/uL Baso # (Auto) (0-0.2) K/uL PT (9.0-12.0) Seconds INR (0.9-1.1) Sodium (136-145) mmol/L Potassium (3.5-5.1) mmol/L Chloride (98-107) mmol/L Carbon Dioxide (21-32) mmol/L Anion Gap (3-11) BUN (7-18) mg/dl Creatinine (0.6-1.4) mg/dl Est Cr Clr Drug Dosing ml/min Est GFR ( Amer) Est GFR (Non-Af Amer) BUN/Creatinine Ratio (10-20) Glucose (70-99) mg/dl POC Glucose 95 133 H (70-99) Estimat Average Glucose mg/dl Hemoglobin A1c (4.5-5.6) % Calcium (8.5-10.1) mg/dl Total Bilirubin (0.2-1) mg/dl AST (15-37) U/L ALT (12-78) U/L Alkaline Phosphatase (45-117) U/L Total Protein (6.4-8.2) gm/dl Albumin (3.4-5.0) gm/dl Globulin (2.5-4.0) gm/dl Albumin/Globulin Ratio (0.9-2) Urine Color Urine Appearance (Clear) Urine pH (4.5-7.5) Ur Specific [place] (1.000-1.030) Urine Protein (Negative) Urine Glucose (UA) (Negative) Urine Ketones (Negative) Urine Blood (Negative) Urine Nitrite (Negative) Urine Bilirubin (Negative) Urine Urobilinogen (Negative) Ur Leukocyte Esterase (Negative) Blood Type Antibody Screen Imaging Data Radiologist's Impression: Radiology results as stated below per my review and the radiologist's interpretation: XR chest 1V portable CLINICAL HISTORY: Trauma. Pain. COMPARISON STUDY: 04/15/2017 FINDINGS: The heart is mildly enlarged. There is aortic tortuosity. There are old bilateral rib fractures. There is a left scapular sclerosis likely secondary to an old healing fracture. There is an old left clavicular fracture. There is no lobar consolidation. There is slight elevation of the interstitium. An element of mild pulmonary vascular congestion cannot be excluded. There are no large pleural effusions[ IMPRESSION: 1. Old bilateral rib fractures. Old left clavicular fracture. Left scapular sclerosis, possibly related to an old fracture 2. No evidence of lobar consolidation 3. Mild interstitial prominence. An element of mild pulmonary vascular congestion cannot be excluded Electronically signed by: Basim Sofia M.D. 04/29/2018 5:51 PM XR femur LT 2V routine, XR hip LT 2-3V w pelvis, XR knee LT 3V, XR tibia fibula LT 2V CLINICAL HISTORY: Left lower extremity pain. Fall. COMPARISON STUDY: Left hip, femur, knee 10/03/2017. FINDINGS: There is a right total arthroplasty with a right femoral cortical plate and screws. There is a left femoral intramedullary yanira with an interlocking femoral neck pin. The hardware appears intact. No acute fracture or dislocation within the pelvis or hips. Healing/healed left acetabular fracture demonstrating a protrusio deformity. Old, healed fractures within the fluid bones and proximal femurs. Extensive heterotopic ossification within the bilateral hips persists. Soft tissue swelling within the left lateral hip. Vertebroplasty within the lower lumbar spine. The bones are osteopenic. Severe osteoarthritis within the left knee with chondrocalcinosis. No fracture or dislocation within the left knee. Moderate left knee effusion. There is no acute transverse fracture within the proximal shaft of the left tibia. This demonstrates mild lateral angulation. There is also a transverse fracture to the midshaft of the left fibula which appears to demonstrate surrounding callus formation consistent with a healing fracture. IMPRESSION: 1. Acute transverse fracture within the proximal shaft of the left tibia demonstrating mild angulation. 2. Healing transverse fracture within the mid shaft of the left fibula. 3. Old posttraumatic and postoperative changes within the pelvis/hips. 4. Moderate left knee effusion. No fractures within the left knee. Electronically signed by: Mayank Cagle M.D. 04/29/2018 5:58 PM Blood Pressure Blood Pressure Findings: Elevated blood pressure Blood Pressure Disposition: further management by hospitalist JAMES Palacios The patient is a pleasant 73-year-old gentleman with a past medical history of mastocytosis, osteoarthritis with history of recurrent fractures who presents emergency department with left lower leg pain when twisting around and feeling a pop setting of recently being followed for a tibial stress fracture and fibula fracture by Dr. Leyva, orthopedics, per hpi. Patient reports he was seen yesterday and had x-rays that showed healing of his tibial stress fracture but continued healing of his fibular fracture but was supposed to continue to bear weight as tolerated with fracture boot. On arrival patient is uncomfortable but no acute distress, afebrile stable vital signs. On exam the patient has mild tenderness to the mid left lower leg with right bony crepitus appreciated. Plain films demonstrate proximal tibial fracture with slight angulation. Previous fibular fracture again appreciated. Case was discussed with Dr. Martinez, orthopedics on-call, we agree with plan for admission for pain control and orthopedic valuation in the morning to assess need for fixation. Spl[place]. Given the patient's medical comorbidities case was discussed with Michelle Huffman [facility] RAUL, who evaluate the patient for admission to the [facility] medicine team. WBC 4, H/H9 0.9/30.1, platelets 167 without recent values for comparison. Chemistry without acidosis. UA negative. Impression & Plan Closed tibial fracture Discharge Plan Visit Data *Final* Discharge Date/Time: 04/29/18 22:20 Chief Complaint: Leg Injury/Pain Stated Complaint: LEG PAIN ED Provider: David Tate Discharge Problem: Closed tibial fracture Patient Disposition: Admitted As Inpatient Condition: Fair Discharge Instructions Interventions: ED Discharge Assessment Last Done: 04/29/18 22:20 The scribe's documentation has been prepared under my direction and personally reviewed by me in its entirety. I confirm that the note above accurately reflects all work, treatment, procedures, and medical decision making performed by me.
[2018-04-30] MEDS: MoRPHine SULFATE 4 MG/ML 1 ML CARP\\VIAL IV PRN ×2 (04:28→07:57)
[2018-04-30 07:40] LABS: Hematocrit (blood only) 29.4 % (42-52); Hemoglobin 9.5 g/dL (14.0-18.0); Mean Corpuscular Hgb Conc 32.3 g/dL (32-36); Mean Corpuscular Volume 89.9 fL (80-100); Mean Platelet Volume 8.7 fL (7.4-10.4); Platelet Count 175 K/uL (130-400); RDW Coefficient of Variation 14.5 % (11.5-14.5); RDW Standard Deviation 47.6 fL (36.4-46.3); Red Blood Count 3.27 M/uL (4.7-6.1)
[2018-04-30 08:08] LABS: Estimated Average Glucose 117 mg/dl
[2018-04-30 08:13] LABS: BUN Creatinine Ratio 18.4 (10-20); Calcium 8.5 mg/dl (8.5-10.1); Creatinine Clr Calc Pharmacy 94.6 ml/min; Est GFR (Non-African American) 92.3
[2018-04-30] MEDS: HYDROmorphone INJ 0.5 MG/0.5 ML SYR IV PRN ×5 (10:17→22:54)
[2018-04-30] MEDS: METHADONE HCL 10 MG TAB PO SCH ×3 (10:21→20:48)
--- NOTE | 2018-04-30 10:21 | Consultation Report ---
DATE OF CONSULTATION: 04/29/2018 ORTHOPEDIC CONSULT CHIEF COMPLAINT: Left leg pain. 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 He has got an underlying diagnosis with mastocytosis and has multiple fractures. He fractures pretty easily, but heals pretty well as well. He has got multiple other medical comorbidities as well. I have been treating him for a tib-fib insufficiency/stress fracture for the past 6 weeks or so in a high-tide Cam walking boot. I just saw him in clinic recently and he was doing pretty well. He has not been wearing his boot all the time. Yesterday, he was in his kitchen with the boot on and kind of twisted, the boot stayed one position and his leg rotated and he felt a snap in his leg. There was some deformity. His brought him to the ER and he has got a tib-fib fracture through the area that he had this insufficiency status healing stress fracture previously. No other injuries. He did fall, but denies any other injuries. No head injury, no loss of consciousness, no back pain. No hip pain or thigh pain. PAST MEDICAL HISTORY: Significant for: 1. Hypertension. 2. Polymyalgia rheumatica, on prednisone. 3. Osteoporosis. 4. Mastocytosis with multiple fractures. 5. Chronic pain with methadone use in the past. 6. Diabetes. 7. Chronic anemia. 8. Bipolar disorder. 9. Sleep apnea. 10. History of avascular necrosis and hip replacement. 11. Giant cell arteritis. 12. Colovesicular fistula. PAST SURGICAL HISTORY: Previous surgeries include: 1. Right total hip replacement done at [facility] and complicated by infection on chronic suppression antibiotics. 2. Right femur fracture, ORIF x2. 3. Left femur fracture IM nailing. 4. Tonsillectomy. Remainder of the past medical history is as per the admission H and P. OBJECTIVE: VITAL SIGNS: His temperature is 37.1. Vital signs stable. GENERAL: Physical examination reveals a pleasant elderly male. He is sitting up in bed, looks pretty comfortable. EXTREMITIES: Examination of the left lower extremity reveals a long leg splint to be in place and the leg looks to be pretty well aligned. There is no visible deformity today. He can slightly flex and extend his toes. He is neurologically intact. X-RAYS: X-rays of the left tib-fib, femur and knee were reviewed. X-rays of the tib-fib reveal a transverse proximal diaphyseal fracture of the tibia with some slight valgus deformity with a healing fibular fracture. This is a fracture through his previous insufficiency/stress fracture. 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 No signs of fracture. X-rays of the femur reveal IM nail with a healed fracture. Abundant callus formed. He has got chronic changes in the left pelvis from previous trauma. I do not see anything acute. ASSESSMENT: A 73-year-old male with multiple medical comorbidities with his underlying mastocytosis and osteoporosis. He has got an acute left tibia fracture through an area of a previous insufficiency fracture. PLAN: We talked about treatment options. Certainly, this could be treated conservatively in a long leg cast for quite some time. Considering his bone fragility and other medical comorbidities, we talked about conservative versus operative treatment. The patient is strongly desiring surgical treatment for mobilization purposes and pain control. After extensive discussion, we are going to take him to the operating room and do an IM nailing of a left tibia fracture. That should allow him to be mobilized pretty quickly in a lower extremity splint. He is anemic and we are going to make sure he is typed and screened for blood if needed. The risks and benefits of this procedure were explained to the patient including but not limited to DVT, PE, , infection, neurological injury, vascular injury, bleeding problem, pain, nonunion, malunion, and further fracture. The patient understands and desires to proceed. Informed consent was obtained. He will let me today and plan on doing this first thing in the morning. We will get him typed and screened. We will check his hemoglobin and hematocrit. We will continue DVT prophylaxis, TEDs and SCDs for now. We will likely put on aspirin postoperatively, but do not need anything currently. Any orthopedic questions can be directed to me at [phone]. [facility]
[2018-04-30] MEDS: BuPROPion XL 150 MG TABCR PO SCH ×3 (10:22→20:48)
[2018-04-30] MEDS: CHOLECALCIFEROL 1,000 UNITS TAB PO SCH (10:23)
[2018-04-30] MEDS: DOXYCYCLINE HYCLATE 100 MG CAP PO SCH (10:23)
[2018-04-30] MEDS: LEFLUNOMIDE 10 MG TAB PO SCH (10:23)
[2018-04-30] MEDS: ESCITALOPRAM OXALATE 20 MG TAB PO SCH (10:23)
[2018-04-30] MEDS: LORATADINE 10 MG TAB PO SCH (10:24)
[2018-04-30] MEDS: predniSONE 5 MG TAB PO SCH (10:24)
[2018-04-30] MEDS: DOCUSATE SODIUM 100 MG CAP PO SCH ×2 (10:25→20:25)
[2018-04-30] MEDS: TAMSULOSIN HCL 0.4 MG CAP PO SCH ×2 (10:25→20:25)
[2018-04-30] MEDS: GABAPENTIN 100 MG CAP PO SCH ×2 (10:26→20:25)
--- NOTE | 2018-04-30 14:03 | Hospitalist Progress Note ---
Date of Service April 30, 2018 Assessment & Plan (1) Fracture of tibia, left, closed: Hx L fibula fracture 5-6 weeks ago, following with Dr Leyva. In walking boot. Today standing and twisted and felt snapping of LLE then causing fall. In ER xrays L tib/fib, L knee, L femur, hip/pelvis and was found to have: 1. Acute transverse fracture within the proximal shaft of the left tibia demonstrating mild angulation. 2. Healing transverse fracture within the mid shaft of the left fibula. 3. Old posttraumatic and postoperative changes within the pelvis/hips. 4. Moderate left knee effusion. No fractures within the left knee. -no weight bearing to left leg -continue chronic pain methadone -morphine for breakthrough pain -ortho on case, OR in the a.m. -npo after midnight tonight (2) Polymyalgia rheumatica: On chronic prednisone 7.5mg daily. 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 Now diet controlled. Random glucose: 136 -A1c in am (8) Anemia: Chronic anemia. Was on iron supplements in past, however not currently taking Hgb: 9.9. Baseline Hgb 7-9. -monitor H&H (9) Bipolar disorder: Currently controlled on Wellbutrin and Lexapro (10) Depression: -continue wellbutrin, lexapro (11) BPH (benign prostatic hyperplasia): Flomax (12) NOLBERTO (obstructive sleep apnea): Oxyg (13) Avascular necrosis: Hx avascular necrosis R hip. Had arthroplasty with post op complication of infection. On chronic doxycycline -continue doxycycline DVT Prophylaxis -SCDs Full Code as per discussion with pt Follows with Dr Bruce [facility] in [place] for routine care Subjective ROS-No Headache, No Visual Changes, No Nausea, No Vomiting, No Fever, No Chills , No Neck Pain or Stiffness, No Chest Pain, No Palpitations, No SOB, No BUTLER, No Cough, No Sputum, No Wheezing, No Abdominal Pain, No Diarrhea, No Hematemesis, No Hemoptysis, No Unexpected Weight Loss, No Flank pain, No Melena, No Hematochezia, No Frequency, No Urgency, No Burning, No Hematuria, No Rashes, No Diaphoresis. Appetite is Normal, left lower extremity very sore Physical Exam Gen-AAO x 3, NAD, Afebrile Head-NCAT, EOMI, PERRLA, Anicteric Sclera, No Posterior Pharyngeal Erythema Neck-Supple, No JVD, No Thyromegaly, No Masses, No LAD, No Bruits Lungs-Clear to Auscultation Bilaterally, No Rales, No Rhonchi, No Wheezing, No Crepitus Chest-No S4, +S1, +S2, No S3, No Murmurs, No Rubs, No Gallops, No Ectopy Abdomen-Soft, Bowel Sounds Present, Non Tender, Non Distended, No Hepatomegaly, No Splenomegaly, No Palpable Masses, No Rebound, No Rigidity, No Guarding Musculoskeletal-Full Range of Motion Bilaterally, No CVAT Extremities-No Cyanosis, No Clubbing, No Edema in the right, left lower extremity casted and wrapped Nuero-Cranial Nerves II-XII grossly intact, Motor WNL, DTRs WNL, Strength WNL, Non Focal Psych-Normal Mood Physical Exam 2 Vital Signs (Past 24 Hours): Last Vital Signs Temp 36.8 C 04/30/18 11:00 Pulse 87 04/30/18 11:00 Resp 16 04/30/18 11:00 BP 111/68 04/30/18 11:00 Pulse Ox 95 04/30/18 11:00 Results & Data Laboratory Results Current Diagnoses Other mast cell neoplasms of uncertain behavior (04/29/18) Anemia, unspecified (04/29/18) Type 2 diabetes mellitus without complications (04/29/18) Bipolar disorder, unspecified (04/29/18) Major depressive disorder, single episode, unspecified (04/29/18) Obstructive sleep apnea (adult) (pediatric) (04/29/18) Other chronic pain (04/29/18) Essential (primary) hypertension (04/29/18) Polymyalgia rheumatica (04/29/18) Age-related osteoporosis without current pathological fracture (04/29/18) Idiopathic aseptic necrosis of unspecified bone (04/29/18) Benign prostatic hyperplasia without lower urinary tract symptoms (04/29/18) Unspecified fracture of shaft of left tibia, initial encounter for closed fracture (04/29/18) Allergies minocycline Adverse Reaction (Severe, Verified 04/29/18 18:10) "STAINING OF SKIN PIGMENT TO BLACK" Cipro Adverse Reaction (Unknown, Verified 10/03/17 17:39) ANKLE TENDONITIS ciprofloxacin Adverse Reaction (Unknown, Verified 04/29/18 18:10) ANKLE TENDONITIS levofloxacin Adverse Reaction (Unknown, Verified 04/29/18 18:10) ANKLE TENDONITIS Height/Weight/Isolation Height 5 ft 5 in Weight 92.9 kg Chemistry 04/29/18 04/30/18 17:46 07:04 Sodium 134 L 138 Potassium 4.3 4.0 Chloride 102 103 Carbon Dioxide 26 30 Anion Gap 6.0 5.0 BUN 17 14 Creatinine 0.91 0.75 Glucose 136 H 86 Urinalysis 04/29/18 18:31 Urine Color Yellow Urine Appearance Clear Urine pH 6.5 Ur Specific [place] 1.011 Urine Protein Negative Urine Glucose (UA) Negative Urine Ketones Negative Urine Blood Negative Urine Nitrite Negative Urine Bilirubin Negative
--- NOTE | 2018-04-30 18:45 | Anesthesiology Consultation ---
Date of Service April 30, 2018 Assessment & Plan Chart Review Chart Review: Acceptable Risk for Surgery NPO Date Last Intake of Fluids: 04/29/18 Time Last Intake of Fluids: 23:59 Date Last Intake of Solids: 04/29/18 Time Last Intake of Solids: 23:59 History Surgery Operation Date: 05/01/18 07:30 Proposed Procedures p Intramedullary Nail Tibia(Left) - Torey Leyva MD Height/Weight Height: 5 ft 5 in Weight: 92.9 kg Allergies Allergy/AdvReac Type Severity Reaction Status Date / Time minocycline AdvReac Severe "STAINING Verified 04/29/18 18:10 OF SKIN PIGMENT TO BLACK" Cipro AdvReac Unknown ANKLE Verified 10/03/17 17:39 TENDONITIS ciprofloxacin AdvReac Unknown ANKLE Verified 04/29/18 18:10 TENDONITIS levofloxacin AdvReac Unknown ANKLE Verified 04/29/18 18:10 TENDONITIS Medications Home Medications Medication Instructions Recorded Confirmed Last Taken bupropion HCl 150 mg PO TID 04/29/18 04/29/18 04/29/18 carisoprodol [Soma] 350 mg PO QID PRN 04/29/18 04/29/18 Unknown cholecalciferol (vitamin D3) 2 cap PO DAILY 04/29/18 04/29/18 04/29/18 [Vitamin D3] docusate sodium 100 mg PO BID 04/29/18 04/29/18 04/29/18 doxycycline hyclate 100 mg PO QAM 04/29/18 04/29/18 04/29/18 escitalopram oxalate 20 mg PO QAM 04/29/18 04/29/18 04/29/18 gabapentin 200 mg PO QAM 04/29/18 04/29/18 04/29/18 gabapentin 300 mg PO HS 04/29/18 04/29/18 04/28/18 leflunomide 10 mg PO QAM 04/29/18 04/29/18 04/29/18 lisinopril 10 mg PO QAM 04/29/18 04/29/18 04/29/18 loratadine [Claritin] 20 mg PO QAM 04/29/18 04/29/18 04/29/18 methadone 10 mg PO TID 04/29/18 04/29/18 04/29/18 14:00 naproxen sodium 660 mg PO UD 04/29/18 04/29/18 04/29/18 08:30 prednisone 7.5 mg PO QAM 04/29/18 04/29/18 04/29/18 ranitidine HCl 150 mg PO BID 04/29/18 04/29/18 04/29/18 sennosides [senna] 3 tab PO DAILY PRN 04/29/18 04/29/18 04/29/18 tamsulosin 0.4 mg PO BID 04/29/18 04/29/18 04/29/18 teriparatide [Forteo] 20 mcg SUBCUT QAM 04/29/18 04/29/18 04/29/18 Active Medications Generic Name Dose Route Start Last Admin Trade Name Freq PRN Reason Stop Dose Admin Bupropion HCl 150 mg 04/29/18 23:00 04/30/18 13:44 Wellbutrin-Xl PO 05/29/18 22:59 150 mg TID YAHIR Administration Docusate Sodium 100 mg 04/29/18 22:35 04/30/18 10:25 Colace PO 05/29/18 22:34 100 mg BID YAHIR Administration Doxycycline Hyclate 100 mg 04/30/18 09:00 04/30/18 10:23 Vibramycin PO 05/30/18 08:59 100 mg QAM YAHIR Administration Escitalopram Oxalate 20 mg 04/30/18 09:00 04/30/18 10:23 Lexapro PO 05/30/18 08:59 20 mg QAM YAHIR Administration Gabapentin 200 mg 04/30/18 09:00 04/30/18 10:26 Neurontin PO 05/30/18 08:59 200 mg QAM YAHIR Administration Gabapentin 300 mg 04/29/18 23:00 04/29/18 23:37 Neurontin PO 05/29/18 22:59 300 mg HS YAHIR Administration Hydromorphone HCl 0.5 mg 04/30/18 08:07 04/30/18 17:38 Dilaudid IV 05/14/18 08:06 0.5 mg Q2H PRN Administration Pain Leflunomide 10 mg 04/30/18 09:00 04/30/18 10:23 Arava PO 05/30/18 08:59 10 mg QAM YAHIR Administration Loratadine 20 mg 04/30/18 09:00 04/30/18 10:24 Claritin PO 05/30/18 08:59 20 mg QAM YAHIR Administration Methadone HCl 10 mg 04/29/18 23:00 04/30/18 13:55 Dolophine PO 05/13/18 22:59 10 mg TID YAHIR Administration Miscellaneous 1 ea 04/30/18 00:00 04/30/18 15:38 Order Awaiting Action N/A 05/30/18 00:00 Not Given QS YAHIR Prednisone 7.5 mg 04/30/18 09:00 04/30/18 10:24 Prednisone PO 05/30/18 08:59 7.5 mg QAM YAHIR Administration Ranitidine HCl 150 mg 04/29/18 23:00 04/30/18 10:22 Zantac PO 05/29/18 22:59 150 mg BID YAHIR Administration Tamsulosin HCl 0.4 mg 04/29/18 23:00 04/30/18 10:25 Flomax PO 05/29/18 22:59 0.4 mg BID YAHIR Administration Vitamin D 2,000 units 04/30/18 09:00 04/30/18 10:23 Vitamin D3 PO 05/30/18 08:59 2,000 units DAILY YAHIR Administration Past Medical History Medical History History of femur fracture (Resolved) Colovesical fistula (Chronic) Giant cell arteritis (Resolved) Depression (Chronic) Bipolar disorder (Chronic) Osteoporosis (Chronic) NOLBERTO (obstructive sleep apnea) (Chronic) BPH (benign prostatic hyperplasia) (Chronic) HTN (hypertension) (Chronic) Diabetes (Chronic) Avascular necrosis (Chronic) Polymyalgia rheumatica (Chronic) Anemia (Chronic) Femur fracture, left (Resolved) Mastocytosis (Chronic) Chronic narcotic use Chronic steroid use Past Family History Family History Other Diabetes HTN (hypertension) Past Surgical History Surgical History History of tonsillectomy and adenoidectomy (Resolved) History of arthroplasty of right hip (Resolved) Social History Smoking Status: Former smoker tobacco type: cigarettes Smoking cigarettes per day: Quit 2012 Smoking End Date: 2012 Hx Alcohol Use: No Hx Substance Use: No Physical Exam Vital Signs Last Vital Signs Temp 36.8 C 04/30/18 15:00 Pulse 75 04/30/18 15:00 Resp 17 04/30/18 15:00 BP 126/72 04/30/18 15:00 Pulse Ox 96 04/30/18 15:00 Testing Electrocardiogram Date: 04/30/18 Findings: + NSR @ (86 some PVCs) Chest X-Ray Date: 04/30/18 Findings: + pulmonary vascular congestion ("possible mild") and + other (old rib fractures) Laboratory Results 04/30/18 07:04 04/30/18 07:04 Blood Type O Positive 04/30/18 08:14 Antibody Screen NEGATIVE 04/30/18 08:14 PT 11.1 Seconds (9.0-12.0) 04/29/18 17:46 INR 1.1 (0.9-1.1) 04/29/18 17:46 Hemoglobin A1c 5.7 % (4.5-5.6) H 04/30/18 07:04 Urine Color Yellow 04/29/18 18:31 Urine Appearance Clear (Clear) 04/29/18 18:31 Urine pH 6.5 (4.5-7.5) 04/29/18 18:31 Ur Specific [place] 1.011 (1.000-1.030) 04/29/18 18:31 Urine Protein Negative (Negative) 04/29/18 18:31 Urine Glucose (UA) Negative (Negative) 04/29/18 18:31 Urine Ketones Negative (Negative) 04/29/18 18:31 Urine Nitrite Negative (Negative) 04/29/18 18:31 Ur Leukocyte Esterase Negative (Negative) 04/29/18 18:31 04/30/18 04/30/18 12:02 08:14 POC Glucose 133 H 95
[2018-04-30] MEDS: TERIPARATIDE INJ SQ SCH (20:49)
[2018-05-01] MEDS: HYDROmorphone INJ 0.5 MG/0.5 ML SYR IV PRN ×6 (01:26→20:38)
[2018-05-01 06:17] LABS: Hematocrit (blood only) 30.2 % (42-52); Hemoglobin 9.8 g/dL (14.0-18.0); Mean Corpuscular Hgb Conc 32.5 g/dL (32-36); Mean Corpuscular Volume 89.3 fL (80-100); Mean Platelet Volume 8.2 fL (7.4-10.4); Platelet Count 156 K/uL (130-400); RDW Coefficient of Variation 14.3 % (11.5-14.5); RDW Standard Deviation 47.2 fL (36.4-46.3); Red Blood Count 3.38 M/uL (4.7-6.1)
[2018-05-01 06:47] LABS: BUN Creatinine Ratio 17.2 (10-20); Creatinine Clr Calc Pharmacy 87.6 ml/min; Est GFR (African American) 103.6; Est GFR (Non-African American) 89.4; Potassium 4.1 mmol/L (3.5-5.1)
[2018-05-01] MEDS ORDERED: LIDOCAINE HCL 2% 2 ML VIAL/AMP(20MG/ML) INFIL ONE (07:14)
[2018-05-01] MEDS ORDERED: PROPOFOL IV EMULSION 10 MG/ML 20 ML VIAL IV ONE (07:14)
[2018-05-01] MEDS ORDERED: MIDAZOLAM HCL 1 MG/ML 2ML VIAL ONE (07:14)
[2018-05-01] MEDS ORDERED: fentaNYL citrate 100 MCG/2 ML VIAL ONE ×2 (07:14→09:38)
--- NOTE | 2018-05-01 07:17 | History & Physical Bridge Note ---
Date of Service May 01, 2018 History & Physical Bridge Note I have examined the patient, reviewed the History & Physical and in the interval since the performance of the History & Physical I have noted the following changes of clinical significance: no changes noted
[2018-05-01] MEDS ORDERED: ROPIVACAINE 0.5% 5 MG/ML 30 ML VIAL ONE (07:30)
[2018-05-01] MEDS ORDERED: BACITRACIN INJ 50,000 UNIT VIAL ONE (07:57)
[2018-05-01] MEDS ORDERED: KETOROLAC 30 MG/ML VIAL IV PRN (08:16)
[2018-05-01] MEDS ORDERED: LABETALOL HCL IV 5 MG/ML 20ML IV PRN (08:16)
[2018-05-01] MEDS ORDERED: HYDROmorphone INJ 1 MG/ML SYRINGE IV PRN (08:16)
[2018-05-01] MEDS ORDERED: ATROPINE SULFATE 0.1 MG/ML 10ML SYR IV PRN (08:16)
[2018-05-01] MEDS ORDERED: HYDROCORTISONE SOD SUCCINATE 100 MG/2 ML VIAL ONE (08:23)
[2018-05-01] MEDS ORDERED: DiphenhydrAMINE HCL 50 MG/ML VIAL ONE (08:23)
[2018-05-01] MEDS ORDERED: raNITIdine HCl 25 MG/ML VIAL ONE (08:23)
[2018-05-01] MEDS ORDERED: CEFAZOLIN 2000MG 2,000 MG/15 ML SYR IV SCH (08:45)
[2018-05-01] MEDS ORDERED: BUPIVACAINE/EPINEPHRINE 0.5% MPF 1:200,000 30 ML VIAL ONE (08:59)
[2018-05-01] MEDS ORDERED: NEOSTIGMINE METHYLSULFATE 5 MG/5 ML SYR ONE (09:02)
[2018-05-01] MEDS ORDERED: ePHEDrine sulfate 50 MG/ML SYR ONE (09:02)
[2018-05-01] MEDS ORDERED: GLYCOPYRROLATE 0.2 MG/ML VIAL ONE (09:02)
[2018-05-01] MEDS ORDERED: ONDANSETRON INJ 2 MG/ML 2 ML VIAL ONE (09:04)
--- NOTE | 2018-05-01 09:51 | Post Operative Brief Note ---
Immediate Post Op Note v1 Date of Surgery May 01, 2018 Pre & Post Diagnosis Operation Date: 05/01/18 07:30 Pre-Op Diagnosis: Left Tibia Fracture Post-Op Diagnosis: Left Tibia Fracture Procedure Operation Date: 05/01/18 07:30 Actual Procedures p Intramedullary Nailing Left Tibia Fracture(Left) - Torey Leyva MD Surgeon Torey Leyva MD Front Line Supervisor None Estimated Blood Loss 200 Findings Consistent with Post-Op Diagnosis Fluids 500 cc Anesthesia Type General Regional Complications none Disposition Accompanied Patient To Recovery: Yes Disposition: Recovery Room
--- NOTE | 2018-05-01 10:06 | Fluoroscopy Report ---
FL tibia/fibula LT 2V CLINICAL HISTORY: LEFT TIBIAL NAIL COMPARISON STUDY: 04/29/2018 FLUOROSCOPY TIME: 86 seconds. NUMBER OF FLUOROSCOPIC IMAGES: 6 FINDINGS: 6 intraoperative fluoroscopic spot images demonstrate internal fixation of a tibial shaft f racture with an intramedullary tibial nail with 2 interlocking screws proximally and 2 interlocking s crews distally. IMPRESSION: Internal fixation of a transverse tibial fracture with an intramedullary tibial nail Electronically signed by: Basim Sofia M.D. 05/01/2018 10:05 AM
--- NOTE | 2018-05-01 10:50 | Anesthesiology Progress Note ---
Date of Service May 01, 2018 Anesthesia Post Procedure Vital Signs Vital Signs: Temp Pulse Pulse Resp BP BP BP 05/01/18 10:42 36.7 C 92 H 18 133/82 05/01/18 10:26 36.6 C 88 18 133/79 05/01/18 10:21 36.6 C 88 16 100/74 05/01/18 10:20 88 17 05/01/18 10:16 87 25 H 140/83 05/01/18 10:15 87 20 05/01/18 10:12 86 13 05/01/18 10:11 87 19 83/78 L 05/01/18 10:10 88 17 05/01/18 10:06 85 19 139/78 05/01/18 10:05 85 19 05/01/18 10:01 85 26 H 141/80 H 05/01/18 10:00 85 15 05/01/18 09:55 88 11 L 145/90 H 05/01/18 09:52 94 H 22 05/01/18 09:51 88 16 130/86 05/01/18 09:49 86 19 147/103 H 05/01/18 09:48 89 17 05/01/18 09:47 87 17 155/84 H 05/01/18 09:46 36.2 C L 88 88 H 155/84 H 05/01/18 07:00 36.9 C 84 16 151/88 H 04/30/18 22:50 36.9 C 85 18 120/75 04/30/18 15:00 36.8 C 75 17 126/72 04/30/18 11:00 36.8 C 87 16 111/68 Pulse Ox 05/01/18 10:42 97 05/01/18 10:26 98 05/01/18 10:21 99 05/01/18 10:20 99 05/01/18 10:16 100 05/01/18 10:15 100 05/01/18 10:12 99 05/01/18 10:11 100 05/01/18 10:10 100 05/01/18 10:06 100 05/01/18 10:05 100 05/01/18 10:01 100 05/01/18 10:00 100 05/01/18 09:55 100 05/01/18 09:52 100 05/01/18 09:51 100 05/01/18 09:49 100 05/01/18 09:48 97 05/01/18 09:47 100 05/01/18 09:46 100 05/01/18 07:00 97 04/30/18 22:50 96 04/30/18 15:00 96 04/30/18 11:00 95 Pain Intensity Left Leg: Pain Intensity: 0 Notes Mental Status: alert / awake / arousable Patient Amnestic to Procedure: Yes Nausea / Vomiting: adequately controlled Pain: adequately controlled Airway Patency, RR, SpO2: stable & adequate BP & HR: stable & adequate Hydration State: stable & adequate Anesthetic Complications: no major complications apparent
[2018-05-01] MEDS ORDERED: CARISOPRODOL 350 MG TABLET PO PRN (10:58)
[2018-05-01] MEDS ORDERED: SENNA 8.6 MG TAB PO PRN (10:58)
--- NOTE | 2018-05-01 11:14 | Hospitalist Progress Note ---
Date of Service May 01, 2018 Assessment & Plan (1) Fracture of tibia, left, closed: Hx L fibula fracture 5-6 weeks ago, following with Dr Leyva. In walking boot. Today standing and twisted and felt snapping of LLE then causing fall. In ER xrays L tib/fib, L knee, L femur, hip/pelvis and was found to have: 1. Acute transverse fracture within the proximal shaft of the left tibia demonstrating mild angulation. 2. Healing transverse fracture within the mid shaft of the left fibula. 3. Old posttraumatic and postoperative changes within the pelvis/hips. 4. Moderate left knee effusion. No fractures within the left knee. -non weight bearing to left leg -continue chronic pain methadone -morphine for breakthrough pain -ortho on case, OR today (2) Polymyalgia rheumatica: On chronic prednisone 7.5mg daily. 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 Now diet controlled. Random glucose: 136 -A1c in am (8) Anemia: Chronic anemia. Was on iron supplements in past, however not currently taking Hgb: 9.9. Baseline Hgb 7-9. -monitor H&H (9) Bipolar disorder: Currently controlled on Wellbutrin and Lexapro (10) Depression: -continue wellbutrin, lexapro (11) BPH (benign prostatic hyperplasia): Flomax (12) NOLBERTO (obstructive sleep apnea): O2 (13) Avascular necrosis: Hx avascular necrosis R hip. Had arthroplasty with post op complication of infection. On chronic doxycycline -continue doxycycline DVT Prophylaxis -SCDs Full Code as per discussion with pt [facility] [place] [facility] Subjective ROS-No Headache, No Visual Changes, No Nausea, No Vomiting, No Fever, No Chills , No Neck Pain or Stiffness, No Chest Pain, No Palpitations, No SOB, No BUTLER, No Cough, No Sputum, No Wheezing, No Abdominal Pain, No Diarrhea, No Hematemesis, No Hemoptysis, No Unexpected Weight Loss, No Flank pain, No Melena, No Hematochezia, No Frequency, No Urgency, No Burning, No Hematuria, No Rashes, No Diaphoresis. Appetite is Normal, left lower extremity very sore Physical Exam Gen-AAO x 3, NAD, Afebrile Head-NCAT, EOMI, PERRLA, Anicteric Sclera, No Posterior Pharyngeal Erythema Neck-Supple, No JVD, No Thyromegaly, No Masses, No LAD, No Bruits Lungs-Clear to Auscultation Bilaterally, No Rales, No Rhonchi, No Wheezing, No Crepitus Chest-No S4, +S1, +S2, No S3, No Murmurs, No Rubs, No Gallops, No Ectopy Abdomen-Soft, Bowel Sounds Present, Non Tender, Non Distended, No Hepatomegaly, No Splenomegaly, No Palpable Masses, No Rebound, No Rigidity, No Guarding Musculoskeletal-Full Range of Motion Bilaterally, No CVAT Extremities-No Cyanosis, No Clubbing, No Edema in the right, left lower extremity casted and wrapped Nuero-Cranial Nerves II-XII grossly intact, Motor WNL, DTRs WNL, Strength WNL, Non Focal Psych-Normal Mood Physical Exam 2 Vital Signs (Past 24 Hours): Last Vital Signs Temp 36.7 C 05/01/18 10:42 Pulse 92 H 05/01/18 10:42 Resp 18 05/01/18 10:42 BP 133/82 05/01/18 10:42 Pulse Ox 97 05/01/18 10:42 Results & Data Laboratory Results Current Diagnoses Other mast cell neoplasms of uncertain behavior (04/29/18) Anemia, unspecified (04/29/18) Type 2 diabetes mellitus without complications (04/29/18) Bipolar disorder, unspecified (04/29/18) Major depressive disorder, single episode, unspecified (04/29/18) Obstructive sleep apnea (adult) (pediatric) (04/29/18) Other chronic pain (04/29/18) Essential (primary) hypertension (04/29/18) Polymyalgia rheumatica (04/29/18) Age-related osteoporosis without current pathological fracture (04/29/18) Idiopathic aseptic necrosis of unspecified bone (04/29/18) Benign prostatic hyperplasia without lower urinary tract symptoms (04/29/18) Unspecified fracture of shaft of left tibia, initial encounter for closed fracture (04/29/18) Allergies minocycline Adverse Reaction (Severe, Verified 04/29/18 18:10) "STAINING OF SKIN PIGMENT TO BLACK" Cipro Adverse Reaction (Unknown, Verified 10/03/17 17:39) ANKLE TENDONITIS ciprofloxacin Adverse Reaction (Unknown, Verified 04/29/18 18:10) ANKLE TENDONITIS levofloxacin Adverse Reaction (Unknown, Verified 04/29/18 18:10) ANKLE TENDONITIS Height/Weight/Isolation Height 5 ft 5 in Weight 92.9 kg Chemistry 04/29/18 04/30/18 05/01/18 17:46 07:04 06:00 Sodium 134 L 138 134 L Potassium 4.3 4.0 4.1 Chloride 102 103 100 Carbon Dioxide 26 30 30 Anion Gap 6.0 5.0 5.0 BUN 17 14 14 Creatinine 0.91 0.75 0.81 Glucose 136 H 86 108 H Urinalysis 04/29/18 18:31 Urine Color Yellow Urine Appearance Clear Urine pH 6.5 Ur Specific [place] 1.011 Urine Protein Negative Urine Glucose (UA) Negative Urine Ketones Negative Urine Blood Negative Urine Nitrite Negative Urine Bilirubin Negative
[2018-05-01] MEDS: LEFLUNOMIDE 10 MG TAB PO SCH (11:30)
[2018-05-01] MEDS: LORATADINE 10 MG TAB PO SCH (11:31)
[2018-05-01] MEDS: DOCUSATE SODIUM 100 MG CAP PO SCH ×2 (11:31→20:34)
[2018-05-01] MEDS: ESCITALOPRAM OXALATE 20 MG TAB PO SCH (11:31)
[2018-05-01] MEDS: CHOLECALCIFEROL 1,000 UNITS TAB PO SCH (11:32)
[2018-05-01] MEDS: predniSONE 5 MG TAB PO SCH (11:32)
[2018-05-01] MEDS: GABAPENTIN 100 MG CAP PO SCH ×2 (11:33→20:34)
[2018-05-01] MEDS: TAMSULOSIN HCL 0.4 MG CAP PO SCH ×2 (11:34→20:34)
[2018-05-01] MEDS: BuPROPion XL 150 MG TABCR PO SCH ×3 (11:35→20:34)
[2018-05-01] MEDS: DOXYCYCLINE HYCLATE 100 MG CAP PO SCH (11:35)
[2018-05-01] MEDS: POTASSIUM CHLORIDE 10 MEQ in SODIUM CHLORIDE 0.9% 1000ML 1,000 ML IV SCH ×2 (11:48→22:02)
[2018-05-01] MEDS: METHADONE HCL 10 MG TAB PO SCH ×3 (11:48→20:38)
[2018-05-01] MEDS: KETOROLAC TROMETHAMINE 15 MG/ML VIAL IV SCH ×3 (11:49→22:42)
[2018-05-01] MEDS: TERIPARATIDE INJ SQ SCH (15:55)
[2018-05-01] MEDS: CEFAZOLIN 2000MG 2,000 MG/15 ML SYR IV SCH ×2 (16:04→23:46)
[2018-05-01] MEDS: FERROUS GLUCONATE 324 MG TAB PO SCH (17:43)
[2018-05-01] MEDS: ASPIRIN 81 MG ECTAB PO SCH (20:34)
--- NOTE | 2018-05-01 21:06 | Operative Report ---
DATE OF OPERATION: 05/01/2018 SURGEON: Torey Leyva MD MANAGER LOAN: None. PREOPERATIVE DIAGNOSIS: Left malaligned transverse tib-fib fracture. POSTOPERATIVE DIAGNOSIS: Left malaligned transverse tib-fib fracture. PROCEDURE PERFORMED: IM nailing of the left tib-fib fracture. COMPLICATIONS: None. ESTIMATED BLOOD LOSS: 200 mL. FLUID REPLACEMENT: 500 mL crystalloid fluid replacement. ANESTHESIA: General with adductor canal block. DRAINS: None. SPECIMENS: None. 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 I have been treating him for an insufficiency/stress fracture of his tibia and fibula. He was doing pretty well for the past 4 weeks and then was in his kitchen on Wednesday evening. He is wearing his boot when he went and twisted and the boot kind of staying his foot rotated and he felt a crack. He had marked instability in his leg after that and he was brought to the Emergency Room. X-rays reveal a progression of his tib-fib fracture. He had quite a bit of varus valgus laxity with any type of movement based on the fracture pattern. Treatment options were explained including operative and nonoperative treatment. He strongly desired a surgical treatment for pain control and mobilization purposes. OPERATIVE IMPLANTS: Operative implants consisted of: 1. A Synthes 345 mm x 10 mm titanium tibial nail. 2. 5.0 interlocking screws, one at 32 mm in length and one at 34 mm in length and one of 30 mm in length and one at 38 mm in length. 3. A 0 mm end cap. OPERATIVE PROCEDURE: The patient was taken to the operating room, identified and placed on the operative table in supine position. All contact areas were appropriately padded. IV antibiotics were provided by anesthesia team. An adductor canal block had been provided by the anesthesia team. A left thigh tourniquet was then placed. A general anesthetic was implemented. The left lower extremity splint was then removed. I then scrubbed his leg with Hibiclens and then prepped it with ChloraPrep and then draped the left lower extremity in standard fashion. An anterior approach to the proximal tibia was then performed through a longitudinal incision beginning at the mid aspect of the patella and extending just medial to the tibial tubercle. Sharp dissection was carried out through the subcutaneous tissue down to the level of the extensor mechanism. An incision was made just medial to the patella tendon. The patella tendon was then retracted laterally. I did resect some of the fat pad. A guidewire was placed just at the apex of the tibial crest anteriorly and in line with the IM canal on the AP film. I then advanced this down the IM canal. I then opened this with the entry reamer for the tibial nail. The guidewire was removed and a ball-tipped guidewire was placed down the tibial canal across the fracture site. I then measured for nail length and a 345 mm nail was selected. I then reamed the tibia, beginning with a size 8.5 and progressing up to 11.5. A 10 mm x 345 mm nail was selected. I then placed this over the guidewire and tapped into position. I then placed 2 interlocking screws proximally using the standard technique and the interlocking guide. One was 32 mm in length, and then the distal one was 34 mm length. The position of this was verified and then the interlocking device was removed. I did place a 0 mm end cap proximally. Attention was then drawn toward distal interlocking. Using the perfect nooksack technique, perfect circles were obtained distally. Stab incision was made and I placed 2 distal interlocking screws, 1 at 30 mm in length and 1 at 38 mm in length. X-ray was brought in. All hardware was appropriately positioned. The fracture was anatomically aligned. It was perfectly stable. Attention was then drawn toward closing. I irrigated all wounds extensively. I injected locally with 30 mL of 0.5% Marcaine with epinephrine. The medial parapatellar incision was closed with 0 Vicryl suture in a [id number] fashion. The subcutaneous tissues of all wounds were then closed with 3-0 Dexon suture in a buried interrupted fashion. Then, the skin was then closed with 3-0 nylon suture in a horizontal mattress fashion. The leg was then cleaned, dried and a sterile dressing composed of Xeroform, 4 x 4s, ABD pads, and a very well-padded posterior and stirrup splint were applied. The patient then brought out of general anesthesia and transferred to the recovery room in stable condition. The patient tolerated the procedure well. No complications. All needle and sponge counts were correct at the end of the operation. I attest to the content of the Intraoperative Record and any orders documented therein. Any exception s are noted below.
[2018-05-02] MEDS: KETOROLAC TROMETHAMINE 15 MG/ML VIAL IV SCH ×4 (05:06→22:09)
[2018-05-02] MEDS: HYDROmorphone INJ 0.5 MG/0.5 ML SYR IV PRN ×4 (06:20→20:00)
[2018-05-02] MEDS: POTASSIUM CHLORIDE 10 MEQ in SODIUM CHLORIDE 0.9% 1000ML 1,000 ML IV SCH ×2 (07:48→16:56)
--- NOTE | 2018-05-02 08:21 | Progress Note ---
DATE: 05/02/2018 SUBJECTIVE: A 73-year-old gentleman postop day 1 from IM nailing of the left tib-fib fracture. He is doing okay. Having some spasms. Pain is otherwise pretty well controlled. No chest pain or shortness of breath. OBJECTIVE: VITAL SIGNS: Temperature 36.7. Vital signs stable. GENERAL: Reveals a pleasant elderly male. He is sitting up in bed, looks pretty comfortable. EXTREMITIES: Examination of the left leg reveals the leg to be well aligned. Dressing is clean, dry and intact. He can dorsiflex and plantarflex his foot appropriately. He is neurologically intact. LABORATORY DATA: Pending. 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 He is doing well. Appears medically stable. Labs are pending. PLAN: 1. DVT prophylaxis include thigh-high TEDs, SCDs and recommend aspirin 81 mg twice a day for the next month. 2. PT/OT. He can touch weightbear on his left leg. 3. Pain control, currently on Dilaudid. That is why we recommend on discharge to p.o. Dilaudid. 4. Medical management as per the Medicine Service. 5. Disposition: He is orthopedically stable and acceptable for discharge at any time. We will just leave this bandage that he has in place for 2 weeks. I need to see him back in 2 weeks for suture removal and likely place in a short leg cast. Any Orthopedic questions can be directed at [phone].
--- NOTE | 2018-05-02 08:30 | Anesthesiology Progress Note ---
Date of Service May 02, 2018 Anesthesia Post Procedure Vital Signs Vital Signs: Temp Pulse Pulse Pulse Resp BP BP 05/02/18 07:40 37.1 C 92 H 18 05/02/18 02:53 36.7 C 87 16 113/67 05/01/18 22:54 36.9 C 75 16 114/72 05/01/18 19:32 36.6 C 81 20 105/68 05/01/18 14:53 36.8 C 84 17 110/72 05/01/18 13:49 98 H 18 110/98 05/01/18 12:39 36.7 C 98 H 18 163/106 H 05/01/18 11:12 91 H 18 124/78 05/01/18 10:42 36.7 C 92 H 18 05/01/18 10:26 36.6 C 88 18 133/79 05/01/18 10:21 36.6 C 88 16 100/74 05/01/18 10:20 88 17 05/01/18 10:16 87 25 H 140/83 05/01/18 10:15 87 20 05/01/18 10:12 86 13 05/01/18 10:11 87 19 83/78 L 05/01/18 10:10 88 17 05/01/18 10:06 85 19 139/78 05/01/18 10:05 85 19 05/01/18 10:01 85 26 H 141/80 H 05/01/18 10:00 85 15 05/01/18 09:55 88 11 L 145/90 H 05/01/18 09:52 94 H 22 05/01/18 09:51 88 16 130/86 05/01/18 09:49 86 19 147/103 H 05/01/18 09:48 89 17 05/01/18 09:47 87 17 155/84 H 05/01/18 09:46 36.2 C L 88 88 H 155/84 H BP Pulse Ox 05/02/18 07:40 150/80 H 98 05/02/18 02:53 98 05/01/18 22:54 96 05/01/18 19:32 99 05/01/18 14:53 98 05/01/18 13:49 05/01/18 12:39 100 05/01/18 11:12 98 05/01/18 10:42 133/82 97 05/01/18 10:26 98 05/01/18 10:21 99 05/01/18 10:20 99 05/01/18 10:16 100 05/01/18 10:15 100 05/01/18 10:12 99 05/01/18 10:11 100 05/01/18 10:10 100 05/01/18 10:06 100 05/01/18 10:05 100 05/01/18 10:01 100 05/01/18 10:00 100 05/01/18 09:55 100 05/01/18 09:52 100 05/01/18 09:51 100 05/01/18 09:49 100 05/01/18 09:48 97 05/01/18 09:47 100 05/01/18 09:46 100 Notes Mental Status: alert / awake / arousable and participated in evaluation Nausea / Vomiting: adequately controlled Pain: adequately controlled Airway Patency, RR, SpO2: stable & adequate BP & HR: stable & adequate Hydration State: stable & adequate Neuraxial Anesthesia: sensory block resolved
[2018-05-02] MEDS: FERROUS GLUCONATE 324 MG TAB PO SCH ×2 (08:58→16:51)
[2018-05-02] MEDS: BuPROPion XL 150 MG TABCR PO SCH ×3 (08:58→21:12)
[2018-05-02] MEDS: LEFLUNOMIDE 10 MG TAB PO SCH (08:59)
[2018-05-02] MEDS: CHOLECALCIFEROL 1,000 UNITS TAB PO SCH (08:59)
[2018-05-02] MEDS: DOCUSATE SODIUM 100 MG CAP PO SCH ×2 (08:59→21:12)
[2018-05-02] MEDS: LISINOPRIL 10 MG TAB PO SCH (09:00)
[2018-05-02] MEDS: ESCITALOPRAM OXALATE 20 MG TAB PO SCH (09:00)
[2018-05-02] MEDS: PANTOprazole 40 MG TAB PO SCH (09:00)
[2018-05-02] MEDS: ASPIRIN 81 MG ECTAB PO SCH ×2 (09:01→21:12)
[2018-05-02] MEDS: GABAPENTIN 100 MG CAP PO SCH ×2 (09:01→21:12)
[2018-05-02] MEDS: TAMSULOSIN HCL 0.4 MG CAP PO SCH ×2 (09:01→21:11)
[2018-05-02] MEDS: DOXYCYCLINE HYCLATE 100 MG CAP PO SCH (09:01)
[2018-05-02] MEDS: predniSONE 5 MG TAB PO SCH (09:02)
[2018-05-02] MEDS: LORATADINE 10 MG TAB PO SCH (09:02)
[2018-05-02] MEDS: METHADONE HCL 10 MG TAB PO SCH ×3 (09:05→21:16)
--- NOTE | 2018-05-02 13:18 | Hospitalist Progress Note ---
Date of Service May 02, 2018 Assessment & Plan (1) Fracture of tibia, left, closed: Hx L fibula fracture 5-6 weeks ago, following with Dr Leyva. In walking boot. Today standing and twisted and felt snapping of LLE then causing fall. In ER xrays L tib/fib, L knee, L femur, hip/pelvis and was found to have: 1. Acute transverse fracture within the proximal shaft of the left tibia demonstrating mild angulation. 2. Healing transverse fracture within the mid shaft of the left fibula. 3. Old posttraumatic and postoperative changes within the pelvis/hips. 4. Moderate left knee effusion. No fractures within the left knee. -non weight bearing to left leg -continue chronic pain methadone -morphine for breakthrough pain -ortho took the patient to the OR 05/01 and performed the below procedure Procedure performed by Dr. Torey Leyva PREOPERATIVE DIAGNOSIS: Left malaligned transverse tib-fib fracture. POSTOPERATIVE DIAGNOSIS: Left malaligned transverse tib-fib fracture. PROCEDURE PERFORMED: IM nailing of the left tib-fib fracture. DC today to SNF today 1. DVT prophylaxis include thigh-high TEDs, SCDs and recommend aspirin 81 mg twice a day for the next month. 2. PT/OT. He can touch weightbear on his left leg. 3. Pain control, Tylenol and OXY IR 4. Disposition: He is orthopedically stable and acceptable for discharge at any time. Leave this bandage that he has in place for [address] Leyva will see him back in 2 weeks for suture removal and likely place in a short leg cast. Any Orthopedic questions can be directed at [phone]. (2) Polymyalgia rheumatica: On chronic prednisone 7.5mg daily. 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 Now diet controlled. Random glucose: 136 -A1c in am (8) Anemia: Chronic anemia. Was on iron supplements in past, however not currently taking Hgb: 9.9. Baseline Hgb 7-9. -monitor H&H (9) Bipolar disorder: Currently controlled on Wellbutrin and Lexapro (10) Depression: -continue wellbutrin, lexapro (11) BPH (benign prostatic hyperplasia): Flomax (12) NOLBERTO (obstructive sleep apnea): O2 (13) Avascular necrosis: Hx avascular necrosis R hip. Had arthroplasty with post op complication of infection. On chronic doxycycline -continue doxycycline DVT Prophylaxis -SCDs Full Code as per discussion with pt [facility] [place] [facility] Subjective ROS-No Headache, No Visual Changes, No Nausea, No Vomiting, No Fever, No Chills , No Neck Pain or Stiffness, No Chest Pain, No Palpitations, No SOB, No BUTLER, No Cough, No Sputum, No Wheezing, No Abdominal Pain, No Diarrhea, No Hematemesis, No Hemoptysis, No Unexpected Weight Loss, No Flank pain, No Melena, No Hematochezia, No Frequency, No Urgency, No Burning, No Hematuria, No Rashes, No Diaphoresis. Appetite is Normal, left lower extremity very sore Physical Exam Gen-AAO x 3, NAD, Afebrile Head-NCAT, EOMI, PERRLA, Anicteric Sclera, No Posterior Pharyngeal Erythema Neck-Supple, No JVD, No Thyromegaly, No Masses, No LAD, No Bruits Lungs-Clear to Auscultation Bilaterally, No Rales, No Rhonchi, No Wheezing, No Crepitus Chest-No S4, +S1, +S2, No S3, No Murmurs, No Rubs, No Gallops, No Ectopy Abdomen-Soft, Bowel Sounds Present, Non Tender, Non Distended, No Hepatomegaly, No Splenomegaly, No Palpable Masses, No Rebound, No Rigidity, No Guarding Musculoskeletal-Full Range of Motion Bilaterally, No CVAT Extremities-No Cyanosis, No Clubbing, No Edema in the right, left lower extremity casted and wrapped Nuero-Cranial Nerves II-XII grossly intact, Motor WNL, DTRs WNL, Strength WNL, Non Focal Psych-Normal Mood Physical Exam 2 Vital Signs (Past 24 Hours): Last Vital Signs Temp 36.8 C 05/02/18 11:30 Pulse 94 H 05/02/18 11:30 Resp 18 05/02/18 11:30 BP 132/82 05/02/18 11:30 Pulse Ox 99 05/02/18 11:30 Results & Data Laboratory Results Current Diagnoses Other mast cell neoplasms of uncertain behavior (04/29/18) Anemia, unspecified (04/29/18) Type 2 diabetes mellitus without complications (04/29/18) Bipolar disorder, unspecified (04/29/18) Major depressive disorder, single episode, unspecified (04/29/18) Obstructive sleep apnea (adult) (pediatric) (04/29/18) Other chronic pain (04/29/18) Essential (primary) hypertension (04/29/18) Polymyalgia rheumatica (04/29/18) Age-related osteoporosis without current pathological fracture (04/29/18) Idiopathic aseptic necrosis of unspecified bone (04/29/18) Benign prostatic hyperplasia without lower urinary tract symptoms (04/29/18) Unspecified fracture of shaft of left tibia, initial encounter for closed fracture (04/29/18) Allergies minocycline Adverse Reaction (Severe, Verified 04/29/18 18:10) "STAINING OF SKIN PIGMENT TO BLACK" Cipro Adverse Reaction (Unknown, Verified 10/03/17 17:39) ANKLE TENDONITIS ciprofloxacin Adverse Reaction (Unknown, Verified 04/29/18 18:10) ANKLE TENDONITIS levofloxacin Adverse Reaction (Unknown, Verified 04/29/18 18:10) ANKLE TENDONITIS Height/Weight/Isolation Height 5 ft 5 in Weight 92.9 kg Chemistry 05/01/18 06:00 Sodium 134 L Potassium 4.1 Chloride 100 Carbon Dioxide 30 Anion Gap 5.0 BUN 14 Creatinine 0.81 Glucose 108 H
--- NOTE | 2018-05-02 13:29 | Discharge Summary ---
Date of Service May 02, 2018 Admission HPI Per Admitting Provider Pt is 73 y/o M with PMH HTN, diet controlled DM II, BPH, PMR on chronic prednisone, osteoporosis, neuropathy, sleep apnea, bipolar, depression, mastocytosis, h/o recurrent fractures presented to ER with c/o L leg pain. Pt reports pathological fracture to L fibula 5-6 weeks ago. He has been following with Dr Gordon ramirez and saw yesterday. Pt states was able to start weight bearing with walking boot and today was standing and reached up to cabinet when felt snapping sensation to left lower leg causing him to fall backward hitting the refrigerator. Denies LOC, WAN, dizziness, CP, SOB, neck pain. C/O L lower leg pain. Denies other extremity pain. Has chronic neuropathy BLE and denies any increased paresthesias/numbness since fall. Hx chronic skin discoloration to BLE from minocycline. Hx bilateral femur fractures, verterbral compression fractures, rib fractures. H/O avascular necrosis R hip, had arthroplasty and reported developed sepsis. Is on doxycyline chronically. Denies fever/chills, diaphoresis, N/V/D/C, WAN, syncope, vision changes, CP, SOB, orthopnea, palpitations, cough, sore throat, choking, otalgia, rhinorrhea, abdominal pain, extremity edema, rashes, urinary symptoms. Admission Exam Per Admitting Provider General: no apparent distress at this time, obese Head: normocephalic, atraumatic Eyes: PERRL, EOM's intact, conjunctiva non-injected, anicteric ENT: normal inspection external ears, nose, mucous membranes moist Neck: supple, trachea midline, non-tender Lungs: clear, diminished, no respiratory distress CV: RRR, no murmur, no pretibial edema Abd: normal BS, soft, non-tender Ext: LLE: hip non-tender to palpation, knee with edema & mild tenderness to palpation, lower leg with diffuse tenderness to palpation, no ROM attempted, distal pulses intact, brisk capillary refill. RLE: non-tender, ROM intact. BUE with ROM intact, non-tender Neuro: A&O x 3, no focal deficits noted, normal affect Skin: warm, dry, bilateral lower legs with blackish color skin discoloration. Right 2nd, 3rd toes with abrasions Principal Diagnosis Fracture of left tibia Cancer arteritis Depression Bipolar disorder Osteoporosis Sleep apnea Obesity with a BMI of 34 BPH Hypertension Diabetes Avascular necrosis Polymyalgia rheumatica Anemia Mastocytosis Discharge Data Allergies Allergy/AdvReac Type Severity Reaction Status Date / Time minocycline AdvReac Severe "STAINING Verified 04/29/18 18:10 OF SKIN PIGMENT TO BLACK" Cipro AdvReac Unknown ANKLE Verified 10/03/17 17:39 TENDONITIS ciprofloxacin AdvReac Unknown ANKLE Verified 04/29/18 18:10 TENDONITIS levofloxacin AdvReac Unknown ANKLE Verified 04/29/18 18:10 TENDONITIS Consultations 04/29/18 18:58 ED Decision to Admit Stat 04/29/18 22:35 Consult Case Management - Discharge Planning Routine Consult Orthopedic Surgery Routine Procedures Performed Operation Date: 05/01/18 07:30 Actual Procedures p Intramedullary Nailing Left Tibia Fracture(Left) - Torey Leyva MD Ordered Studies 05/01/18 07:28 US - OR guided needle placemen Routine 05/01/18 07:30 FL fluoroscopy <1hr Routine FL tibia/fibula LT 2V Routine Hospital Course (1) Fracture of tibia, left, closed: Hx L fibula fracture 5-6 weeks ago, following with Dr Leyva. In walking boot. Today standing and twisted and felt snapping of LLE then causing fall. In ER xrays L tib/fib, L knee, L femur, hip/pelvis and was found to have: 1. Acute transverse fracture within the proximal shaft of the left tibia demonstrating mild angulation. 2. Healing transverse fracture within the mid shaft of the left fibula. 3. Old posttraumatic and postoperative changes within the pelvis/hips. 4. Moderate left knee effusion. No fractures within the left knee. -non weight bearing to left leg -continue chronic pain methadone -morphine for breakthrough pain -ortho took the patient to the OR 05/01 and performed the below procedure Procedure performed by Dr. Torey Leyva PREOPERATIVE DIAGNOSIS: Left malaligned transverse tib-fib fracture. POSTOPERATIVE DIAGNOSIS: Left malaligned transverse tib-fib fracture. PROCEDURE PERFORMED: IM nailing of the left tib-fib fracture. DC today to SNF today 1. DVT prophylaxis include thigh-high TEDs, SCDs and recommend aspirin 81 mg twice a day for the next month. 2. PT/OT. He can touch weightbear on his left leg. 3. Pain control, Tylenol and OXY IR 4. Disposition: He is orthopedically stable and acceptable for discharge at any time. Leave this bandage that he has in place for [address] Leyva will see him back in 2 weeks for suture removal and likely place in a short leg cast. Any Orthopedic questions can be directed at [phone]. (2) Polymyalgia rheumatica: On chronic prednisone 7.5mg daily. 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 Now diet controlled. Random glucose: 136 -A1c in am (8) Anemia: Chronic anemia. Was on iron supplements in past, however not currently taking Hgb: 9.9. Baseline Hgb 7-9. -monitor H&H (9) Bipolar disorder: Currently controlled on Wellbutrin and Lexapro (10) Depression: -continue wellbutrin, lexapro (11) BPH (benign prostatic hyperplasia): Flomax (12) NOLBERTO (obstructive sleep apnea): O2 (13) Avascular necrosis: Hx avascular necrosis R hip. Had arthroplasty with post op complication of infection. On chronic doxycycline -continue doxycycline DVT Prophylaxis -SCDs Full Code as per discussion with pt Follows with Dr Bruce [facility] in [place] for routine care Total Time Total Time Spent Total Time Spent (In Minutes): 45 mins Discharge Plan Discharge Items Patient Disposition: Transfer Longterm Fac Reason For Visit: TIBIA FRACTURE Discharge Diagnosis: Left Tibia Fracture Condition: Fair Discharge Goals: Decrease discomfort, Improve disease control, Improve function and Therapeutic intervention Activity: Per 'Additional Instructions' section Activity Comment: Touch WB Left leg for 2 weeks Lifting: None Bathing: Keep incision dry Exercise/Sports: None Weightbearing: Left toe touch Non-emergency contact: Primary Care Provider and Surgeon Call non-emergency contact if: you have any medication questions, your symptoms worsen and your pain is worsening Follow-up/Referrals: Gerson Bruce MD [Primary Care Provider] - (Call for opening when DCd from [facility]) Torey Leyva MD [Surgeon] - (Follow up as directed in 2 weeks) Diet: Carb Consistent or DM2 and Heart Healthy Addtl Provider Instructions: Keep dressing/bandage clean, dry, and in place until return to clinic appointment. Elevate leg as much as possible. Return to clinic appointment 2 weeks from surgery date. Prescriptions: New acetaminophen [Mapap (acetaminophen)] 325 mg Tablet 650 mg PO Q4H PRN (Reason: fever or pain) Qty: 100 RF: 0 ferrous gluconate 324 mg (38 mg iron) Tablet 324 mg PO BIDM Qty: 30 RF: 0 aspirin [Ecotrin Low Strength] 81 mg Tablet,Delayed Release (Dr/Ec) 81 mg PO BID Qty: 60 RF: 0 oxycodone 5 mg tablet 5 mg PO DAILY PRN (Reason: pain) Qty: 20 RF: 0 Continue doxycycline hyclate 100 mg capsule 100 mg PO QAM RF: 0 methadone 10 mg tablet 10 mg PO TID RF: 0 prednisone 5 mg tablet 7.5 mg PO QAM RF: 0 leflunomide 10 mg tablet 10 mg PO QAM RF: 0 tamsulosin 0.4 mg capsule 0.4 mg PO BID RF: 0 ranitidine HCl 150 mg tablet 150 mg PO BID RF: 0 lisinopril 10 mg tablet 10 mg PO QAM RF: 0 gabapentin 100 mg capsule 200 mg PO QAM RF: 0 gabapentin 100 mg capsule 300 mg PO HS RF: 0 loratadine [Claritin] 10 mg Tablet 20 mg PO QAM RF: 0 escitalopram oxalate 20 mg tablet 20 mg PO QAM RF: 0 bupropion HCl 150 mg tablet extended release 24 hr 150 mg PO TID RF: 0 teriparatide [Forteo] 20 mcg/dose - 600 mcg/2.4 mL pen injector 20 mcg subcut QAM RF: 0 carisoprodol [Soma] 350 mg Tablet 350 mg PO QID PRN (Reason: Muscle Spasm) RF: 0 sennosides [senna] 8.6 mg Tablet 3 tab PO DAILY PRN (Reason: Constipation) RF: 0 docusate sodium 100 mg Capsule 100 mg PO BID RF: 0 cholecalciferol (vitamin D3) [Vitamin D3] 4,000 unit capsule 2 cap PO DAILY RF: 0 Stand-Alone Forms: [facility] Discharge Orders: Discharge Order (Routine); Ordered 05/02/18 Ordered By: Quinn Bah Skilled Items Patient informed of condition?: Yes DNR: No Discharge Level of Care: Skilled Communicable Disease: No Discharge Prognosis: Improving Admission Data Admit Date/Time: 04/29/18 20:18 Attending Provider: Quinn Bah Admit Provider: Phong Harris Primary Care Provider: Gerson Bruce Other Providers: Phong Harris ; Fernando Martinez Service: Surgical Services
--- NOTE | 2018-05-02 13:45 | XRay Report ---
XR chest 2V routine CLINICAL HISTORY: Sternal Pain COMPARISON STUDY: 04/29/2018 FINDINGS: The cardiac images so contours remain stable. There is no failure. There is no focal pulmon nicolasa consolidation. No pleural effusions are visualized. There are old bilateral rib fractures. There is an old left clavicular fracture. There is left scapular sclerosis likely secondary to an old fract ure.[ There is a sternal fracture which is age-indeterminate. IMPRESSION: No active disease in the chest. Electronically signed by: Basim Sofia M.D. 05/02/2018 1:43 PM
[2018-05-02] MEDS: TERIPARATIDE INJ SQ SCH (19:55)
[2018-05-03] MEDS: HYDROmorphone INJ 0.5 MG/0.5 ML SYR IV PRN ×2 (02:01→09:07)
[2018-05-03] MEDS: POTASSIUM CHLORIDE 10 MEQ in SODIUM CHLORIDE 0.9% 1000ML 1,000 ML IV SCH ×2 (02:12→13:13)
[2018-05-03] MEDS: KETOROLAC TROMETHAMINE 15 MG/ML VIAL IV SCH (05:20)
[2018-05-03] MEDS: FERROUS GLUCONATE 324 MG TAB PO SCH (09:06)
[2018-05-03] MEDS: LORATADINE 10 MG TAB PO SCH (09:06)
[2018-05-03] MEDS: DOXYCYCLINE HYCLATE 100 MG CAP PO SCH (09:06)
[2018-05-03] MEDS: LEFLUNOMIDE 10 MG TAB PO SCH (09:06)
[2018-05-03] MEDS: GABAPENTIN 100 MG CAP PO SCH (09:07)
[2018-05-03] MEDS: LISINOPRIL 10 MG TAB PO SCH (09:07)
[2018-05-03] MEDS: DOCUSATE SODIUM 100 MG CAP PO SCH (09:08)
[2018-05-03] MEDS: predniSONE 5 MG TAB PO SCH (09:08)
[2018-05-03] MEDS: CHOLECALCIFEROL 1,000 UNITS TAB PO SCH (09:08)
[2018-05-03] MEDS: ASPIRIN 81 MG ECTAB PO SCH (09:08)
[2018-05-03] MEDS: PANTOprazole 40 MG TAB PO SCH (09:08)
[2018-05-03] MEDS: ESCITALOPRAM OXALATE 20 MG TAB PO SCH (09:08)
[2018-05-03] MEDS: BuPROPion XL 150 MG TABCR PO SCH ×2 (09:09→14:25)
[2018-05-03] MEDS: TAMSULOSIN HCL 0.4 MG CAP PO SCH (09:09)
[2018-05-03] MEDS: METHADONE HCL 10 MG TAB PO SCH ×2 (09:16→13:13)
[2018-05-03] MEDS: HYDROmorphone HCL 2 MG TAB PO PRN ×2 (10:24→14:27)
[2018-05-03] MEDS: ACETAMINOPHEN 500 MG TAB PO SCH ×2 (10:26→13:13)
== END 2018-05-03 15:07 | DRG 493 ==
LOC: ED 16:42 → 3N 20:18